=== PATIENT | female | born 1950 | race Caucasian/White ===

== ENCOUNTER 2020-03-11 15:07 | Inpatient (IN) | payer MEDICARE ==
[~2020-03-11] VITALS: Ht 180.3 cm; Wt 98.4 kg
--- NOTE | 2020-03-11 15:43 | NUR ---
ANDREI FROM [facility]. TO ER BED 5. NON VERBAL. AWAKE. VENT AND TRACH DEPENDENT. BED BOUND. BROUGHT IN FOR LOW O2 SAT DESPITE BEING ON VENT. PT WAS NOTED WITH 02 SAT 86%. PER EMS REPORT, PT WAS SUCTION AND GOT BETTER. PT VENT SETTING AC10, VT450, 50%, +5 PEEP. AND SATTING AT 100%. MD WAS AT THE BEDSIDE FOR EVAL. ORDERS RECEIVED NOTED AND CARRIED. MID LINE ALREADY IN PLACED DATA COLLECTOR FROM SNF. RECTAL TEMP NOTED 98.4. PT PRESENTED WITYH WOLFE CATH AND GT.
--- NOTE | 2020-03-11 15:49 | NUR ---
SHEN AT BEDSIDE FOR BLOOD DRAW
--- NOTE | 2020-03-11 15:53 | NUR ---
LAURIE SALVADOR (DAUGHTER) - [phone]
--- NOTE | 2020-03-11 15:54 | NUR ---
xray at bedside
[2020-03-11 16:06] LABS: BASOPHILS # (AUTO) 0.1 /CMM (0.0-0.2); BASOPHILS % (AUTO) 1.1 % (0.0-2.0); EOSINOPHILS % (AUTO) 4.9 % (0.0-6.0); HEMATOCRIT 32 % (33-45); HEMOGLOBIN 9.9 g/dL (11.5-14.8); LYMPHOCYTES # (AUTO) 0.9 /CMM (0.8-4.8); LYMPHOCYTES % (AUTO) 14.8 % (20.0-44.0); MEAN CORPUSCULAR HGB CONC 31 g/dl (31.0-36.0); MEAN CORPUSCULAR VOLUME 90 fL (82-100); MONOCYTES # (AUTO) 0.2 /CMM (0.1-1.30); MONOCYTES % (AUTO) 4.3 % (2.0-12.0); NEUTROPHILS # (AUTO) 4.3 /CMM (1.8-8.9); NEUTROPHILS % (AUTO) 74.9 % (43.0-81.0); PLATELET COUNT (AUTO) 242 /CMM (150-450); RED BLOOD CELL COUNT(AUTO) 3.59 MIL/uL (4.0-5.2); WHITE BLOOD COUNT (AUTO) 5.8 K/uL (4.3-11.0)
[2020-03-11] MEDS ORDERED: LEVA0.6320 IH (16:07)
[2020-03-11] MEDS ORDERED: ACET-907 GT (16:07)
[2020-03-11] MEDS ORDERED: LEVE500T9 GT (16:07)
[2020-03-11] MEDS ORDERED: MIDO5TAB4 GT (16:07)
[2020-03-11] MEDS ORDERED: QUET50TA GT (16:07)
[2020-03-11] MEDS ORDERED: ONDA-97 GT (16:07)
[2020-03-11] MEDS ORDERED: ATOR40TA GT (16:07)
[2020-03-11] MEDS ORDERED: ROPI0.5T4 GT (16:07)
[2020-03-11] MEDS ORDERED: LANS30CA56 GT (16:07)
[2020-03-11] MEDS ORDERED: ACET325T53 GT (16:07)
[2020-03-11] MEDS ORDERED: TRAM50TA2 GT (16:07)
[2020-03-11] MEDS ORDERED: GABA600T12 GT (16:07)
[2020-03-11] MEDS ORDERED: FENO145T21 GT (16:07)
[2020-03-11] MEDS ORDERED: ASPI-1169 GT (16:07)
[2020-03-11] MEDS ORDERED: INSU100V28 IJ (16:07)
[2020-03-11] MEDS ORDERED: METO5TAB7 GT (16:07)
[2020-03-11] MEDS ORDERED: HEPA100D33 SQ (16:07)
[2020-03-11] MEDS ORDERED: CYCL5TAB GT (16:07)
[2020-03-11] MEDS ORDERED: NUT.237L31 PO (16:07)
[2020-03-11 16:15] LABS: CALCIUM, SERUM 8.8 mg/dL (8.5-10.1); CARBON DIOXIDE 32 mmol/L (21-32); CHLORIDE 103 mmol/L (98-107); CREATININE 1.1 mg/dL (0.6-1.3); GLUCOSE 276 mg/dL (74-106); POTASSIUM 4.2 mmol/L (3.5-5.1); SODIUM SERUM 143 mmol/L (136-145); UREA NITROGEN, BLOOD 39 mg/dL (7-18)
[2020-03-11 16:30] LABS: ALANINE AMINOTRANSFERASE 14 U/L (12-78); ALBUMIN 2.3 g/dL (3.4-5.0); ALKALINE PHOSPHATASE 102 U/L (46-116); ASPARTATE AMINOTRANSFERASE 20 U/L (15-37); B-TYPE NATRIURETIC PEPTIDE 49382 PG/ML (0-125); BILIRUBIN,DIRECT 0.2 mg/dL (0.0-0.2); BILIRUBIN,TOTAL 0.4 mg/dL (0.2-1.0); TOTAL PROTEIN, SERUM 6.7 g/dL (6.4-8.2)
[2020-03-11 16:43] LABS: ABG BASE EXCESS 7.1 mmol/L; ABG OXYGEN SATURATION 96.3 % (92.0-98.5); ABG PCO2 46.2 mmHg (35.0-45.0); ABG PH 7.456 (7.350-7.450); AaDO2 213.5 mmHg; COHb 0.3 % (0.5-1.5); MetHb 0.5 % (0.0-1.5); O2Hb 95.5 % (94.0-97.0); PEEP,BG 5 cm H2O; SITE, ABG Right Radial; VT, ABG 450 mL
--- NOTE | 2020-03-11 17:40 | NUR ---
covid swab done and sent
--- NOTE | 2020-03-11 19:24 | NUR ---
DR. SUNSHINE SPEAKING WITH LIZZY TALLEY NP REGARDING ADMISSION
--- NOTE | 2020-03-11 19:30 | NUR ---
RT pt received on mechanical vent on current settings. trached, bivona portex 8. vent plugged in to red outlet. alarms on and audible. ambu bag at [facility]. pt resting comfortably. waiting to transport to floor
--- NOTE | 2020-03-11 19:50 | NUR ---
BED ASSIGNMENT BRENDA 253
[2020-03-11] MEDS ORDERED: Z GUARD REMEDY 2 OZ OINT TP PRN (20:00)
[2020-03-11] MEDS ORDERED: ONDANSETRON HCL/PF 4 MG/2 ML VIAL IVP PRN (20:00)
[2020-03-11] MEDS ORDERED: ACETAMINOPHEN 325 MG TABLET PO PRN (20:00)
[2020-03-11] MEDS ORDERED: HYDROCODONE/APAP 5/325MG TABLET PO PRN (20:00)
[2020-03-11] MEDS ORDERED: GLUCERNA 1.5 1,000 ML BOTTLE GT SCH (20:00)
[2020-03-11] MEDS ORDERED: MAGNESIUM HYDROXIDE 30 ML UDC GT PRN (20:00)
[2020-03-11] MEDS ORDERED: TRAMADOL HCL 50 MG TABLET GT PRN (20:00)
[2020-03-11] MEDS ORDERED: DEXTROSE 50%-WATER 50 ML DISP.SYRIN IV PRN (20:00)
[2020-03-11] MEDS ORDERED: MAG HYDROX/AL HYDROX/SIMETH 30 ML UDC GT PRN (20:00)
[2020-03-11] MEDS ORDERED: MORPHINE SULFATE INJ 2 MG/ML DISP.SYRIN IV PRN (20:00)
[2020-03-11] MEDS ORDERED: FUROSEMIDE 40 MG/4 ML VIAL IV ONE (20:00)
--- NOTE | 2020-03-11 20:40 | NUR ---
REPORT GIVEN TO EDYTA BENSON FOR JAMES.
[2020-03-11] MEDS ORDERED: FUROSEMIDE 40 MG/4 ML VIAL ONE (20:44)
[2020-03-11 21:35] VITALS: BP 126/77
--- NOTE | 2020-03-11 21:35 | NUR ---
PT TRANSPORTED TO UNIT [facility] WITH EMT, RT AND RN AT BEDSIDE WITH ACLS PROTOCOL. NAD NOTED DURING TRANSPORT.
--- NOTE | 2020-03-11 21:45 | NUR ---
RT pt transferred to floor with no complications. vent plugged in to red outlet. ambu bag at [facility]. alarms on and audible. will continue to monitor.
[2020-03-11] MEDS: QUETIAPINE FUMARATE 25 MG TABLET GT SCH (21:56)
[2020-03-11] MEDS: LEVETIRACETAM SOL (5 ML) 100 MG/ML UDC GT SCH (21:56)
[2020-03-11] MEDS: CYCLOBENZAPRINE 10 MG TABLET GT SCH (21:57)
[2020-03-11] MEDS: ATORVASTATIN 40 MG TABLET GT SCH (21:57)
[2020-03-11] MEDS: MIDODRINE HCL (5MG) 5 MG TABLET GT SCH (21:58)
[2020-03-11 22:00] VITALS: BP 126/72
[2020-03-11] MEDS: ENOXAPARIN SODIUM 40 MG/0.4 ML DISP.SYRIN SQ SCH (22:02)
[2020-03-11] MEDS: BLOOD SUGAR DIAGNOSTIC 1 EACH STRIP VI SCH (22:11)
[2020-03-11] MEDS: *INSULIN REGULAR(HUMULIN R)HUM 100 UNIT/ML VIAL SQ PRN (22:16)
[2020-03-11 22:30] VITALS: BP 107/61
[2020-03-11] MEDS ORDERED: ropiniROLE 0.5 MG TABLET ONE ×2 (22:35→22:41)
[2020-03-11] MEDS: ropiniROLE 0.5 MG TABLET GT SCH (22:40)
[2020-03-11 23:00] VITALS: BP 96/51
[2020-03-11 23:30] VITALS: BP 103/56
[2020-03-12] VITALS (32 sets, daily range): BP systolic 90–114; BP diastolic 44–71
--- NOTE | 2020-03-12 03:34 | NUR ---
SPOKE TO LAURIE, PATIENTS DAUGHTER JUST WANTED AN UPDATE TO HOW HER MOTHER IS DOING. ALL CONCERNS ANS QUESTIONS ANSWERED.
[2020-03-12] MEDS: ropiniROLE 0.5 MG TABLET GT SCH ×3 (04:10→20:27)
[2020-03-12] MEDS: MIDODRINE HCL (5MG) 5 MG TABLET GT SCH ×3 (04:11→20:27)
[2020-03-12 04:45] LABS: BASOPHILS % (AUTO) 0.4 % (0.0-2.0); HEMATOCRIT 27 % (33-45); HEMOGLOBIN 8.6 g/dL (11.5-14.8); LYMPHOCYTES # (AUTO) 2.3 /CMM (0.8-4.8); LYMPHOCYTES % (AUTO) 31.6 % (20.0-44.0); MEAN CORPUSCULAR HGB CONC 32 g/dl (31.0-36.0); MEAN CORPUSCULAR VOLUME 88 fL (82-100); MONOCYTES # (AUTO) 0.4 /CMM (0.1-1.30); MONOCYTES % (AUTO) 4.8 % (2.0-12.0); NEUTROPHILS # (AUTO) 3.7 /CMM (1.8-8.9); NEUTROPHILS % (AUTO) 50.2 % (43.0-81.0); PLATELET COUNT (AUTO) 215 /CMM (150-450); WHITE BLOOD COUNT (AUTO) 7.3 K/uL (4.3-11.0)
[2020-03-12 05:07] LABS: BILIRUBIN,TOTAL 0.4 mg/dL (0.2-1.0); CALCIUM, SERUM 8.7 mg/dL (8.5-10.1); MAGNESIUM 1.6 mg/dL (1.8-2.4); PHOSPHORUS 3.5 mg/dL (2.5-4.9); POTASSIUM 3.6 mmol/L (3.5-5.1); TOTAL PROTEIN, SERUM 5.7 g/dL (6.4-8.2)
[2020-03-12 05:54] LABS: THYROID STIMULATING HORMONE 7.128 uIU/mL (0.358-3.74)
[2020-03-12] MEDS ORDERED: GLUCERNA 1.5 1,000 ML BOTTLE GT SCH (06:41)
--- NOTE | 2020-03-12 07:11 | NUR ---
REPORT GIVEN TO MORNING SHIFT NURSE. PATIENT SHOWS NO SIGN OF ANY DISTRESS. ALL NEEDS MET.
[2020-03-12] MEDS: BLOOD SUGAR DIAGNOSTIC 1 EACH STRIP VI SCH ×4 (07:34→21:46)
[2020-03-12] MEDS: INSULIN REGULAR, HUMAN 100 UNIT/ML 3 ML VIAL SQ PRN ×3 (07:35→17:23)
[2020-03-12] MEDS: METOLAZONE 2.5 MG TABLET GT SCH (08:10)
[2020-03-12] MEDS: GABAPENTIN 300 MG CAPSULE GT SCH ×2 (08:10→16:53)
[2020-03-12] MEDS: ASPIRIN 81 MG TAB.CHEW GT SCH (08:10)
[2020-03-12] MEDS: PANTOPRAZOLE 40 MG/PACK PACK GT SCH (08:10)
[2020-03-12] MEDS: LEVETIRACETAM SOL (5 ML) 100 MG/ML UDC GT SCH ×2 (08:10→20:27)
[2020-03-12] MEDS: FENOFIBRATE NANOCRYS (145 MG) 145 MG TABLET GT SCH (08:10)
[2020-03-12] MEDS: CYCLOBENZAPRINE 10 MG TABLET GT SCH ×2 (08:10→20:27)
[2020-03-12] MEDS ORDERED: PREVACID (NF) 30 MG TAB GT SCH (09:00)
[2020-03-12] MEDS: GLUCERNA 1.2 1,000 ML BOTTLE NG PRN ×2 (09:03→21:54)
[2020-03-12] MEDS: Magnesium 1GM/D5W 100ML PREMIX 100 ML IV SCH ×2 (09:54→10:56)
--- NOTE | 2020-03-12 11:18 | NUR ---
RN NOTE 0715: Received patient awake. Able to follow commands. With trache to vent, tolerated settings well, no respiratory distress noted. With GT intact. Mendez cath intactm, noted with good UOP, clear jaron colored urine drained to BSD. On isolation prec for R/O Covid, maintained and observed. 0900: S/E by Dr. Mixon, made aware that there is order of 250 mL water flush q6, per MD, continue for now. With order of labs in am and Mg replacement. 1030: S/E by Dr. Quezada, with orders of labs. 1110: No any significant changes noted at this time. Kept clean, warm and dry. Needs attended.
[2020-03-12] MEDS: FUROSEMIDE 40 MG/4 ML VIAL IV SCH ×3 (12:10→22:53)
[2020-03-12 16:06] LABS: BILIRUBIN,URINE NEGATIVE (NEGATIVE); BLOOD, URINE TRACE-INTA Ery/uL (NEGATIVE); COLOR,URINE YELLOW (YELLOW); LEUKOCYTE ESTERASE ,URINE SMALL (NEGATIVE); NITRITE, URINE NEGATIVE (NEGATIVE); PH,URINE 7.5 (5.0-8.0); PROTEIN,URINE 30 mg/dl (NEGATIVE); UGLUCOSE NEGATIVE (NEGATIVE); UROBILINOGEN,URINE 0.2 EU/dL (0.2)
[2020-03-12 17:52] LABS: WBC,URINE 21-50 /HPF (0-3)
[2020-03-12 17:53] LABS: BACTERIA,URINE 1+ /HPF (None Seen); SQUAMOUS EPITHELIAL CELL,UR 0-2 /HPF (None Seen); YEAST,URINE Rare /HPF (None Seen)
--- NOTE | 2020-03-12 19:20 | NUR ---
RN NOTES RECEIVED PATIENT WITH TRACH SHILEY 8 CONNECTED TO AC 10 TV 450 FIO2 40% PEEP 5. AOX 1 FOLLOWS COMMAND SR ON TELE MONITOR. NO SOB OR ACUTE RESPIRATORY DISTRESS. IV SITE ON LORA MIDLINE NO INFILTRATION. FLUSHED WELL. PATIENT HAD GTF GLUCERNA 1.2 @ 50 ML/HR INTACT AND PATENT. FLUSHED WELL PATENCY CHECKED. WOLFE CATH DRAINED WITH YELLOW COLOR URINE. PATIENT BNP STILL HIGH, COVID PCR STILL PENDING AWAITING FOR THE RESULT DROPLET PRECAUTION STRICTLY OBSERVED DUE TO PUI. CONTINUE WITH POC.
--- NOTE | 2020-03-12 20:45 | NUR ---
TRAVELING OPERATOR OPENING NOTES RECEIVED PATIENT FROM ICU , SAFELY TRANSFERRED TO ROOM 201, WITH RT, RN MARCK PRESENT, SUCTION SETUP IN PLACE, MECHANICAL VENT IN PLACE WITH ORDERED SETTINGS, ALARMS AUDIBLE, SUCTION SET UP IN PLACE, AMBU BAG IN PLACE, AWAKE ALERT AND ORIENTED X1, VENT DEPENDENT ON COMPENSATION EXPERT SR90. GTUBE IN PLACE, PATENT, NO RESIDUALS PRESENT, WOLFE CATHETER IN PLACE, WITH CORRECT ALIGNMENT, DRAINING YELLOW URINE, LEFT UPPER ARM MIDLINE INTACT AND PATENT, DRESSING IS C/D/I.KCI MATTRESS IN PLACE. ORIENTED TO STAFF AND CALL LIGHT AND KEPT WITHIN REACH, HEAD OF BED ELEVATED FOR ASPIRATION PRECAUTIONS, WAS ENDORSE LOVENOX WILL GIVE SCHEDULED. NO BELONGINGS PRESENT, WILL CONTINUE TO MONITOR REMAINS COMFORTABLE AND CARRY OUT MD ORDERS.
--- NOTE | 2020-03-12 21:00 | NUR ---
RN NOTES TRANSFERRED PATIENT @ 2040 PM WITH RT AND RN. PLACE PATIETN ON TRANSFER MONITOR, PATIENT REMAINED STABLE. REPORT GIVEN TO MINERVA KAM RN AND ENDORSE LOVENOX DUE TO UNABLE TO ACCEPT CO SIGNITURE ON THE FLOOR.
[2020-03-12] MEDS: ATORVASTATIN 40 MG TABLET GT SCH (21:40)
[2020-03-12] MEDS: QUETIAPINE FUMARATE 25 MG TABLET GT SCH (21:41)
[2020-03-12] MEDS: ENOXAPARIN SODIUM 40 MG/0.4 ML DISP.SYRIN SQ SCH (21:43)
[2020-03-12] MEDS: *INSULIN REGULAR(HUMULIN R)HUM 100 UNIT/ML VIAL SQ PRN (21:47)
[2020-03-13] VITALS (10 sets, daily range): BP systolic 81–131; BP diastolic 44–89
--- NOTE | 2020-03-13 01:00 | NUR ---
SPECIAL EDUCATION CLASSROOM AIDE NOTES NOTED BP AT 88/51, 94. MADE DR. BALL AWARE OF DX AND SCHEDULED LASIX GIVEN ORDERED, NEW ORDER FOR MIDRODRINE 5MG ONE TIME NOW AND NS 100 SLOW BOLUS. ORDERS READ BACK AND VERIFIED AND CARRIED OUT. WILL CONTINUE TO MONITOR.
[2020-03-13] MEDS ORDERED: MIDODRINE HCL (5MG) 5 MG TABLET GT ONE (01:30)
[2020-03-13] MEDS ORDERED: IV NS 0.9% 100 ML BAG IV ONE (01:30)
--- NOTE | 2020-03-13 02:35 | NUR ---
churn driller helper notes midodrine effective b/p noted increased to 102/53,75. patient is stable.
[2020-03-13] MEDS: ropiniROLE 0.5 MG TABLET GT SCH ×3 (05:43→21:46)
[2020-03-13] MEDS: MIDODRINE HCL (5MG) 5 MG TABLET GT SCH ×3 (05:44→21:41)
[2020-03-13] MEDS: BLOOD SUGAR DIAGNOSTIC 1 EACH STRIP VI SCH ×4 (05:58→21:57)
[2020-03-13] MEDS: INSULIN REGULAR, HUMAN 100 UNIT/ML 3 ML VIAL SQ PRN ×3 (05:59→17:14)
--- NOTE | 2020-03-13 06:42 | NUR ---
NEON PUMPER CLOSING NOTES PATIENT COMFORTABLE PER NOVELTY CHAIN MAKER WAS SR NOW SHOWING WITH EPISODES OF CONTROLLED AND UNCONTROLLED A.FIB 109, MADE AWARE WITH RECOMMENDATION TO FOLLOW UP WITH CARDIO CONSULT IN AM . SUCTION SETUP IN PLACE, MECHANICAL VENT IN PLACE WITH ORDERED SETTINGS, ALARMS AUDIBLE, , AMBU BAG IN PLACE, AWAKE ALERT AND ORIENTED X1, VENT DEPENDENT . GTUBE IN PLACE, PATENT, NO RESIDUALS PRESENT, WOLFE CATHETER IN PLACE TOTAL OUTPUT 1100, WITH CORRECT ALIGNMENT, DRAINING YELLOW URINE, LEFT UPPER ARM MIDLINE INTACT AND PATENT, DRESSING IS C/D/I.KCI MATTRESS IN PLACE. ORIENTED TO STAFF AND CALL LIGHT AND KEPT WITHIN REACH, HEAD OF BED ELEVATED FOR ASPIRATION PRECAUTIONS, NO BELONGINGS PRESENT, WILL CONTINUE TO MONITOR AND ENDORSE TO NEXT SHIFT, MIDRODINE WAS EFFECTIVE.
--- NOTE | 2020-03-13 07:00 | NUR ---
PARK ATTENDANT OPENING NOTES RECEIVED PT RESTING IN BED AT THIS TIME. AOX1. NO SOB NOTED, NO S/S OF ANY ACUTE DISTRESS NOTED. NO C/O PAIN AT THIS TIME. RESPIRATIONS ARE EVEN AND UNLABORED WITH EQUAL RISE AND FALL IN CHEST. PT ON MECHANICAL VENT. VENT SETTINGS READING AC 10, TV 450, FIO2 40%, PEEP 5. LORA MIDLINE, INTACT, PATENT AND FLUSHING WELL. PT ON EXTERNAL TEL TELEPHONE ORDER CLERK ROOM SERVICE READING ST 109. WOLFE CATHETER IN PLACE DRAINING TO GRAVITY CLEAR YELLOW URINE OUTPUT. SAFETY PRECAUTION IN PLACE AND MAINTAINED AT ALL TIMES. BED IN LOWEST LOCKED POSITION, HOB ELEVATED, SIDE RAILS UP X 2, CALL LIGHT WITHIN REACH. WILL CONTINUE TO MONITOR
[2020-03-13 07:50] LABS: BASOPHILS # (AUTO) 0.1 /CMM (0.0-0.2); BASOPHILS % (AUTO) 0.8 % (0.0-2.0); EOSINOPHILS % (AUTO) 13.7 % (0.0-6.0); HEMATOCRIT 30 % (33-45); HEMOGLOBIN 9.5 g/dL (11.5-14.8); LYMPHOCYTES # (AUTO) 3.8 /CMM (0.8-4.8); LYMPHOCYTES % (AUTO) 38.4 % (20.0-44.0); MEAN CORPUSCULAR HGB CONC 31 g/dl (31.0-36.0); MEAN CORPUSCULAR VOLUME 89 fL (82-100); MONOCYTES # (AUTO) 0.7 /CMM (0.1-1.30); MONOCYTES % (AUTO) 6.5 % (2.0-12.0); NEUTROPHILS # (AUTO) 4.1 /CMM (1.8-8.9); NEUTROPHILS % (AUTO) 40.6 % (43.0-81.0); PLATELET COUNT (AUTO) 218 /CMM (150-450)
--- NOTE | 2020-03-13 07:50 | NUR ---
RT PATIENT REC'D TRACHED ON [facility] VENT WITH ORDERED SETTINGS SERGIO WELL. AMBU BAG AT [facility]. PATIENT APPEARS COMFORTABLE AND IN NO DISTRESS. Addendum: 03/13/20 at 0933 by ALEXANDRA MORFIN RT Amended: Links added.
[2020-03-13 08:04] LABS: CALCIUM, SERUM 8.7 mg/dL (8.5-10.1); MAGNESIUM 1.9 mg/dL (1.8-2.4); POTASSIUM 3.8 mmol/L (3.5-5.1)
[2020-03-13] MEDS: GABAPENTIN 300 MG CAPSULE GT SCH ×2 (08:17→17:06)
[2020-03-13] MEDS: ASPIRIN 81 MG TAB.CHEW GT SCH (08:19)
[2020-03-13] MEDS: FENOFIBRATE NANOCRYS (145 MG) 145 MG TABLET GT SCH (08:19)
[2020-03-13] MEDS: CYCLOBENZAPRINE 10 MG TABLET GT SCH ×2 (08:19→21:42)
[2020-03-13] MEDS: PANTOPRAZOLE 40 MG/PACK PACK GT SCH (08:19)
[2020-03-13] MEDS: LEVETIRACETAM SOL (5 ML) 100 MG/ML UDC GT SCH ×2 (08:19→21:42)
[2020-03-13] MEDS: METOLAZONE 2.5 MG TABLET GT SCH (08:58)
--- NOTE | 2020-03-13 09:23 | NUR ---
WOUND CARE CONSULT: REVIEWED CHART, NURSING DOCUMENTATION AND PHOTOS WHICH INDICATE SACRAL NECROTIC WOUND, SCAB AROUND G TUBE SITE, WOUNDS TO THIGHS AND PERINEAL RASH, PRESENT ON ADMISSION. RECOMMEND SURGICAL CONSULT DR MANSFIELD NOTIFIED OF CONSULT REQUEST. RECOMMENDATIONS MADE FOR SKIN PROTECTION AND DISCUSSED WITH NURSING STAFF. PT IS ON A FIRST STEP [facility]. IN AGREEMENT WITH PLAN OF CARE.
--- NOTE | 2020-03-13 13:36 | NUR ---
PT TRANSFERRED TO BY BED WITH ACLS PROTOCOLS, RN, RT AND RELAY MAN TO [facility] ROOM 314 AT THIS TIME. PT IN STABLE CONDITION. BEDSIDE REPORT GIVEN EDYTA GAN.
--- NOTE | 2020-03-13 13:40 | NUR ---
BABY NURSE NOTES RECEIVED BEDSIDE REPORT FROM EDYTA ROMERO. ON MECHANICAL VERBTILATION ORDERED WITHOUT S/S OF COMPLICATIONS OBSERVED. ORIENTED PATIENT TO ROOM, UNIT AND CALL LIGHT. RESTING COMFORTABLY IN BED AT THIS TIME. FREQUENT VISUAL CHECK DONE.
--- NOTE | 2020-03-13 17:00 | NUR ---
SLASHER RUNNER NOTES RECEIVED A CALL FROM NGOZI POWER GENERATION TECHNICIAN AT [facility] AND REQUESTED AN UPDATE ON PATIENT, TRANSFERRED CALL TO .
--- NOTE | 2020-03-13 19:30 | NUR ---
TELE/RN OPENING NOTES RECIEVED PATIENT AWAKE IN BED. PATIENT IS ALERT AND ORIENTED X 1. PATIENT IS ABLE TO MOUTH WORDS. PATIENT REMAINS ON AC 10 TV 450 FIO2 OF 40% PEEP 5 WITH PORTEX # 8 INTACT, MECH VENT. TELE READING ST 106. WOLFE CATH IN PLACE DRAINING YELLOW URINE. PATIENT HAD GTUBE IN PLACE TOLERATING FEEDING WELL GLUCERNA 1.2 AT 50 ML/HR, NO RESIDUAL. IV ACCESS LEFT UPPER ARM MIDLINE. PATIENT PLACED IN COMFORTABLE POSITION, NO SIGNS OF DISTRESS. SAFETY MEASURES ARE IN PLACE, BED IS LOCKED AND PLACED IN THE LOW POSITION, SIDE RAILS UP X 3. CALL LIGHT IS WITHIN REACH. WILL CONTINUE TO MONITOR.
--- NOTE | 2020-03-13 19:43 | NUR ---
BINDER SORTER NOTES PATIENT RESTING COMFORTABLY IN BED. ALERT AND ORIENTED X1. ABLE TO FOLLOW SIMPLE COMMANDS. ABLE TO MOUTH WORDS. DENIES ANY C/O PAIN NOR DISCOMFORT AT THIS TIME. REMAIN ON AC 10 TV 450 FIO2 OF 40% PEEP 5 WITH PORTEX # 8 INTACT. SUCTIONED PATIENT AND OBTAINED YELLOW GREEN THIN SECRETIONS. WOLFE CATHETER INTACT AND PATENT DRAINING YELLOW COLORED URINE VIA BEDSIDE. GT INTACT AND PATENT SERGIO FEEDING WELL OF GLUCERNA 1.2 AT 50 ML/HR. NO RESIDUAL OBSERVED. FREQUENT VISUAL CHECK DONE. BED IN LOWEST POSITION ,LOCKED. IN NO APPARENT DISTRESS.
--- NOTE | 2020-03-13 20:21 | NUR ---
RT NOTE PT RECEIVED TRACHED WITH BIVONA PORTEX 8 ON MECHANICAL VENTILATION. CUFF CHECKED. PT AWAKE/ALERT. AMBU BAG @ HOB. SX DONE, TRACH SECURED AND PATENT. ALARMS ON AND AUDIBLE. NO DISTRESS NOTED. WILL CONTINUE TO MONITOR T/O SHIFT. Addendum: 03/13/20 at 2023 by IVY RUSSELL RT Amended: Links added.
[2020-03-13] MEDS: ATORVASTATIN 40 MG TABLET GT SCH (21:42)
[2020-03-13] MEDS: QUETIAPINE FUMARATE 25 MG TABLET GT SCH (21:42)
[2020-03-13] MEDS: ENOXAPARIN SODIUM 40 MG/0.4 ML DISP.SYRIN SQ SCH (21:46)
[2020-03-14] VITALS: BP 128/67
[2020-03-14] MEDS: GLUCERNA 1.2 1,000 ML BOTTLE NG PRN ×2 (03:38→22:02)
[2020-03-14 04:00] VITALS: BP 124/84
[2020-03-14] MEDS: ropiniROLE 0.5 MG TABLET GT SCH ×3 (05:07→21:52)
[2020-03-14] MEDS: MIDODRINE HCL (5MG) 5 MG TABLET GT SCH ×3 (05:08→21:52)
[2020-03-14 06:06] LABS: BASOPHILS % (AUTO) 0.5 % (0.0-2.0); EOSINOPHILS % (AUTO) 12.4 % (0.0-6.0); HEMATOCRIT 31 % (33-45); LYMPHOCYTES # (AUTO) 2.6 /CMM (0.8-4.8); LYMPHOCYTES % (AUTO) 32.6 % (20.0-44.0); MEAN CORPUSCULAR HGB CONC 32 g/dl (31.0-36.0); MEAN CORPUSCULAR VOLUME 88 fL (82-100); MONOCYTES # (AUTO) 0.5 /CMM (0.1-1.30); MONOCYTES % (AUTO) 5.9 % (2.0-12.0); NEUTROPHILS # (AUTO) 3.9 /CMM (1.8-8.9); NEUTROPHILS % (AUTO) 48.6 % (43.0-81.0); PLATELET COUNT (AUTO) 233 /CMM (150-450); RED BLOOD CELL COUNT(AUTO) 3.54 MIL/uL (4.0-5.2)
[2020-03-14 06:08] LABS: CALCIUM, SERUM 8.7 mg/dL (8.5-10.1); POTASSIUM 3.7 mmol/L (3.5-5.1)
[2020-03-14] MEDS: BLOOD SUGAR DIAGNOSTIC 1 EACH STRIP VI SCH ×4 (06:35→22:21)
[2020-03-14] MEDS: INSULIN REGULAR, HUMAN 100 UNIT/ML 3 ML VIAL SQ PRN ×4 (06:36→21:55)
--- NOTE | 2020-03-14 06:50 | NUR ---
TELE/RN CLOSING NOTES PATIENT RESTING COMFORTABLY IN BED. ALERT AND ORIENTED X1. ABLE TO FOLLOW SIMPLE COMMANDS. ABLE TO MOUTH WORDS. DENIES ANY C/O PAIN NOR DISCOMFORT AT THIS TIME. REMAIN ON AC 10 TV 450 FIO2 OF 40% PEEP 5 WITH PORTEX # 8 INTACT. SUCTIONED PATIENT NEEDED DURING SHIFT. WOLFE CATHETER INTACT AND PATENT DRAINING YELLOW COLORED URINE OUTPUT 650CC. GT INTACT AND PATENT TOLERATING FEEDING WELL OF GLUCERNA 1.2 AT 50 ML/HR. NO RESIDUAL. ALL NEEDS MET DURING SHIFT. BED IN LOWEST POSITION ,LOCKED. IN NO APPARENT DISTRESS. WILL ENDORSE CARE TO DAY SHIFT.
[2020-03-14] MEDS: CYCLOBENZAPRINE 10 MG TABLET GT SCH ×2 (08:35→21:52)
[2020-03-14] MEDS: PANTOPRAZOLE 40 MG/PACK PACK GT SCH (08:35)
[2020-03-14] MEDS: GABAPENTIN 300 MG CAPSULE GT SCH ×2 (08:35→16:42)
[2020-03-14] MEDS: ASPIRIN 81 MG TAB.CHEW GT SCH (08:35)
[2020-03-14] MEDS: FENOFIBRATE NANOCRYS (145 MG) 145 MG TABLET GT SCH (08:35)
[2020-03-14] MEDS: METOLAZONE 2.5 MG TABLET GT SCH (08:35)
[2020-03-14] MEDS: LEVETIRACETAM SOL (5 ML) 100 MG/ML UDC GT SCH ×2 (08:35→21:51)
[2020-03-14 08:49] VITALS: BP 137/78
[2020-03-14] MEDS: METOPROLOL TARTRATE 25 MG TABLET PO SCH ×2 (09:18→21:51)
[2020-03-14] MEDS: FUROSEMIDE 20 MG/2 ML VIAL IV SCH ×2 (09:18→16:43)
[2020-03-14 14:08] VITALS: BP 118/58
--- NOTE | 2020-03-14 18:37 | NUR ---
JEWELRY CASTING MODEL MAKER APPRENTICE NOTES PATIENT IN BED RESTING NO SOB OR ACUTE DISTRESS NOTED. PATIENT VENT DEPENDENT. PATIENT ALERT, ORIENTED X2. ALL DUE MEDICATIONS ADMINISTERED. PATIENTS WOLFE INTACT PATENT. IV ACCESS INTACT PATIENT. ALL NEEDS MET. NO ACUTE CHANGES NOTED DURING AM SHIFT. WILL ENDORSE CARE TO PM SHIFT.
--- NOTE | 2020-03-14 19:50 | NUR ---
MS/TELE/RN RECEIVED PATIENT IN BED AWAKE, ALERT, NON VERBAL, APPEAR COMFORTABLE, NO SIGNS OF DISTRESS NOTED, HOB ELEVATED, G TUBE FEEDING INFUSING, MECHANICAL VENTILATOR WORKING WELL, CALL LIGHT IN REACH, NEEDS ATTENDED, WILL MONITOR.
[2020-03-14 20:00] VITALS: BP 130/59
[2020-03-14] MEDS: ATORVASTATIN 40 MG TABLET GT SCH (21:51)
[2020-03-14] MEDS: QUETIAPINE FUMARATE 25 MG TABLET GT SCH (21:52)
[2020-03-14] MEDS: ENOXAPARIN SODIUM 40 MG/0.4 ML DISP.SYRIN SQ SCH (21:54)
[2020-03-14] MEDS: *INSULIN REGULAR(HUMULIN R)HUM 100 UNIT/ML VIAL SQ PRN (22:22)
[2020-03-15] VITALS: BP 99/61
[2020-03-15 04:00] VITALS: BP 129/83
[2020-03-15] MEDS: ropiniROLE 0.5 MG TABLET GT SCH ×2 (05:31→12:29)
[2020-03-15] MEDS: MIDODRINE HCL (5MG) 5 MG TABLET GT SCH ×2 (05:31→12:28)
[2020-03-15] MEDS: BLOOD SUGAR DIAGNOSTIC 1 EACH STRIP VI SCH ×2 (05:39→12:06)
[2020-03-15] MEDS: INSULIN REGULAR, HUMAN 100 UNIT/ML 3 ML VIAL SQ PRN ×2 (05:46→12:08)
--- NOTE | 2020-03-15 06:04 | NUR ---
MS/TELE/RN MORNING CARE WAS DONE AT 0500, TOTAL LINEN CHANGE RENDERED, SACRAL WOUND DRESSING WAS DIRTY, DRESSING CHANGE DONE PER ORDER, F/C CARE DONE, REPOSITIONED TO COMFORT, HOB ELEVATED, G TUBE FEEDING INFUSING, GOOD SLEEP NOTED DURING SHIFT, ALL NEEDS ATTENDED AT THIS TIME, WILL CONTINUE TO MONITOR.
--- NOTE | 2020-03-15 07:38 | NUR ---
TELE/RN OPENING NOTES RECEIVED PATIENT ON BED. NO SIGN AND SYMPTOM OF PAIN NOTED AT THIS TIME. PATIENT IN NO APPARENT RESPIRATORY DISTRESS NOTED. PATIENT IS ON VENT AT THE PRESCRIBED SETTING. WILL CONTINUE TO MONITOR.
[2020-03-15 08:00] VITALS: BP 129/59
--- NOTE | 2020-03-15 08:05 | NUR ---
TELE/RN NOTES TELE MONITOR READING SINUS TACHY WITH PVC 107 BPM. WILL CONTINUE TO MONITOR.
[2020-03-15] MEDS: CYCLOBENZAPRINE 10 MG TABLET GT SCH (09:01)
[2020-03-15] MEDS: PANTOPRAZOLE 40 MG/PACK PACK GT SCH (09:01)
[2020-03-15] MEDS: GABAPENTIN 300 MG CAPSULE GT SCH (09:01)
[2020-03-15] MEDS: FUROSEMIDE 20 MG/2 ML VIAL IV SCH (09:01)
[2020-03-15] MEDS: METOLAZONE 2.5 MG TABLET GT SCH (09:02)
[2020-03-15] MEDS: ASPIRIN 81 MG TAB.CHEW GT SCH (09:02)
[2020-03-15] MEDS: LEVETIRACETAM SOL (5 ML) 100 MG/ML UDC GT SCH (09:02)
[2020-03-15] MEDS: FENOFIBRATE NANOCRYS (145 MG) 145 MG TABLET GT SCH (09:03)
[2020-03-15] MEDS: METOPROLOL TARTRATE 25 MG TABLET PO SCH (09:03)
--- NOTE | 2020-03-15 09:11 | NUR ---
TELE/RN NOTES PATIENT WITH SIGN AND SYMPTOM OF PAIN NOTED. FACIAL GRIMACE AND RESTLESS. NORCO 5/325MG 1 TAB WAS GIVEN.WILL CONTINUE TO MONITOR.
[2020-03-15] MEDS ORDERED: FURO10SO2 GT (11:04)
[2020-03-15 15:28] VITALS: BP 111/69
--- NOTE | 2020-03-15 16:25 | NUR ---
RN NOTES PATIENT IS ALERT AND ORIENTED X1. PATIENT IS NON-VERBAL. IN ROOM AIR AND SATURATION IS AT 98%. RESPIRATION REGULAR AND UNLABORED. PATIENT DENIES PAIN AT THIS TIME. PATIENT IN NO APPARENT RESPIRATORY DISTRESS NOTED. PATIENT IN VENTILATOR AT THE PRESCRIBED SETTING. TRACHEOSTOMY WAS CLEAN AND DRY. G TUBE FEEDING WAS IN PLACE, PATENT AND INTACT. SEEN AND EXAMINED BY MD WITH ORDERS MADE AND CARRIED OUT. ALL DUE MEDICATION WAS GIVEN. GIVE REPORT TO MARIAN LOREDO LVN. PATIENT LEFT THE HOSPITAL IN MEDICALLY STABLE CONDITION AT 1625. SENIOR LEAD SOFTWARE ENGINEER BY 1 RN AND 2 EMT VIA AMBULANCE.
== END 2020-03-15 16:30 | DRG 291 ==
LOC: ER 16:36 → ICU 19:52 → TELE2 03-12 20:39 → TELE 03-13 15:12
PROVIDERS: ADMIT Nurse Practitioner Acute Care; ATTEND Internal Medicine
PROC: 5A1945Z Respiratory Ventilation, 24-96 Consecutive Hours (ICD-10-PCS; principal; 2020-03-11)
DX: I13.0 Hypertensive heart and chronic kidney disease with heart failure and stage 1 through stage 4 chronic kidney disease, or unspecified chronic kidney disease (principal); J96.21 Acute and chronic respiratory failure with hypoxia; I50.33 Acute on chronic diastolic (congestive) heart failure; G93.41 Metabolic encephalopathy; E43 Unspecified severe protein-calorie malnutrition; N17.0 Acute kidney failure with tubular necrosis; R53.2 Functional quadriplegia; G93.1 Anoxic brain damage, not elsewhere classified; Z99.11 Dependence on respirator [ventilator] status; D68.59 Other primary thrombophilia; J90 Pleural effusion, not elsewhere classified; I25.2 Old myocardial infarction; J44.9 Chronic obstructive pulmonary disease, unspecified; Z79.82 Long term (current) use of aspirin; Z79.51 Long term (current) use of inhaled steroids; Z79.899 Other long term (current) drug therapy; Z79.4 Long term (current) use of insulin; E11.65 Type 2 diabetes mellitus with hyperglycemia; D63.8 Anemia in other chronic diseases classified elsewhere; Z86.74 Personal history of sudden cardiac arrest; R13.10 Dysphagia, unspecified; Z93.0 Tracheostomy status; Z93.1 Gastrostomy status; Z74.09 Other reduced mobility; E83.42 Hypomagnesemia; L98.9 Disorder of the skin and subcutaneous tissue, unspecified; L89.156 Pressure-induced deep tissue damage of sacral region; S70.322A Blister (nonthermal), left thigh, initial encounter; S70.321A Blister (nonthermal), right thigh, initial encounter; X58.XXXA Exposure to other specified factors, initial encounter; Y92.9 Unspecified place or not applicable; E11.22 Type 2 diabetes mellitus with diabetic chronic kidney disease; N18.9 Chronic kidney disease, unspecified
CPT/HCPCS: 31720; 36415; 36600; 71045-TC; 71250-TC; 80048-TC; 80053-TC; 80061-TC; 80076-TC; 81000-TC; 82803-TC; 82962-TC; 83540-TC; 83605-TC; 83735-TC; 83880; 84100-TC; 84443-TC; 84484-TC; 85025-TC; 85730-TC; 86140-TC; 87040-TC; 87081-TC; 87086-TC; 93307-TC; 94003-TC; 94799-TC; 99082-TC; A4217; A6253; A6403; A7526; G0378; J1650; J1815; J1940; J1953; J3475; J7030; U0003

== ENCOUNTER 2020-03-21 09:16 | Inpatient (IN) | payer MEDICARE ==
[2020-03-21] VITALS (10 sets, daily range): BP systolic 89–137; BP diastolic 37–110
[~2020-03-21] VITALS: Ht 165.1 cm; Wt 73.3 kg
[~2020-03-21 09:16] MED LIST: ACET-907 GT; ACET325T53 GT; ASPI-1169 GT; ATOR40TA GT; CYCL5TAB GT; FENO145T21 GT; FURO10SO2 GT; GABA600T12 GT; HEPA100D33 SQ; INSU100V28 SQ; LANS30CA56 GT; LEVA0.6320 IH; LEVE500T9 GT; METO5TAB7 GT; MIDO5TAB4 GT; NUT.237L31 GT; ONDA-97 GT; QUET50TA GT; ROPI0.5T4 GT; TRAM50TA2 GT
--- NOTE | 2020-03-21 09:30 | NUR ---
PT [id number], FROM SNF, C/O SOB, 93% ON 15LPM PER EMS. RT BY BEDSIDE. IV ACCESS STARTED ON R AND L HAND G18. BLOOD DRAW DONE. SENT TO LAB. SEEN BY DR. CAMPBELL
--- NOTE | 2020-03-21 09:35 | NUR ---
URINE COLLECTED. RAPID INFLUENZA COLLECTED. SENT TO LAB.
[2020-03-21] MEDS ORDERED: FURO-144 GT (09:47)
[2020-03-21] MEDS ORDERED: HEPA50008 SQ (09:47)
[2020-03-21] MEDS ORDERED: LEVA0.6320 IH (09:47)
[2020-03-21] MEDS ORDERED: ZINC1CAP2 GT (09:47)
[2020-03-21] MEDS ORDERED: ASCO-352 GT (09:47)
[2020-03-21] MEDS ORDERED: CHLO473M5 MM (09:47)
[2020-03-21] MEDS ORDERED: FERR300L GT (09:47)
[2020-03-21] MEDS ORDERED: COLL30OI TP (09:47)
[2020-03-21] MEDS ORDERED: MULT-447 GT (09:47)
[2020-03-21 09:56] LABS: ALBUMIN 2.4 g/dL (3.4-5.0); BILIRUBIN,TOTAL 0.5 mg/dL (0.2-1.0); CALCIUM, SERUM 8.8 mg/dL (8.5-10.1); CREATININE 1.3 mg/dL (0.6-1.3); POTASSIUM 4.7 mmol/L (3.5-5.1); TOTAL PROTEIN, SERUM 7.6 g/dL (6.4-8.2)
[2020-03-21 09:57] LABS: BASOPHILS % (AUTO) 0.5 % (0.0-2.0); EOSINOPHILS % (AUTO) 0.2 % (0.0-6.0); HEMATOCRIT 56 % (33-45); HEMOGLOBIN 17.6 g/dL (11.5-14.8); LYMPHOCYTES # (AUTO) 1.4 /CMM (0.8-4.8); LYMPHOCYTES % (AUTO) 34.6 % (20.0-44.0); MEAN CORPUSCULAR HGB CONC 31 g/dl (31.0-36.0); MEAN CORPUSCULAR VOLUME 88 fL (82-100); MONOCYTES # (AUTO) 0.1 /CMM (0.1-1.30); NEUTROPHILS # (AUTO) 2.4 /CMM (1.8-8.9); NEUTROPHILS % (AUTO) 61.7 % (43.0-81.0); PLATELET COUNT (AUTO) 143 /CMM (150-450); RED BLOOD CELL COUNT(AUTO) 6.39 MIL/uL (4.0-5.2); WHITE BLOOD COUNT (AUTO) 3.9 K/uL (4.3-11.0)
--- NOTE | 2020-03-21 09:57 | NUR ---
COVID SWAB DONE SENT TO LAB.
--- NOTE | 2020-03-21 09:58 | NUR ---
dr francis aware
--- NOTE | 2020-03-21 09:58 | NUR ---
lab called triponin 0.062
[2020-03-21] MEDS ORDERED: ACETAMINOPHEN 325 MG TABLET MC ONE (10:00)
--- NOTE | 2020-03-21 10:02 | NUR ---
RT RECD PT VIA EMS FOR SOB TRACHED INTACT PORTEX BIVONA 8 CUFFED ON MECH VENT AC 16 450 +5 100% VENT PLUGGED IN RED OUTLET BROWN SET UP SX THICK YELLOW SECRETIONS PT TACHYPNEIC WILL CONT TO MONITOR Addendum: 03/21/20 at 1004 by PRATIMA RIOS RT Amended: Links added.
[2020-03-21] MEDS ORDERED: ACETAMINOPHEN 325 MG TABLET ONE (10:14)
[2020-03-21] MEDS ORDERED: FUROSEMIDE 40 MG/4 ML VIAL ONE (10:14)
[2020-03-21 10:19] LABS: D-DIMER 0.16 mg/L(FEU (0.17-0.50)
[2020-03-21 10:30] LABS: C-REACTIVE PROTEIN 20.1 mg/dL (0.0-0.9)
[2020-03-21] MEDS ORDERED: FUROSEMIDE 40 MG/4 ML VIAL IV ONE (10:30)
--- NOTE | 2020-03-21 11:17 | NUR ---
BP IS 96/54 HR 99, DR CAMPBELL MADE AWARE.
[2020-03-21] MEDS ORDERED: ASPIRIN 325 MG TABLET ONE (11:18)
[2020-03-21] MEDS ORDERED: ASPIRIN 325 MG TABLET GT ONE (11:30)
--- NOTE | 2020-03-21 11:31 | NUR ---
BED ASSIGNMENT RECEIVED. PT WILL GO TO 257
[2020-03-21 11:35] LABS: ABG BASE EXCESS 4.5 mmol/L; ABG OXYGEN SATURATION 99.4 % (92.0-98.5); ABG PH 7.471 (7.350-7.450); ABG PO2 342.3 mmHg (75.0-100.0); AaDO2 330.7 mmHg; COHb 0.3 % (0.5-1.5); MetHb 0.2 % (0.0-1.5); O2Hb 98.9 % (94.0-97.0); PEEP,BG 5 cm H2O; SITE, ABG Right Radial; VT, ABG 450 mL
--- NOTE | 2020-03-21 13:04 | NUR ---
RECEIVED VERBAL AUTHORIZATION FROM JIN ALONSO
--- NOTE | 2020-03-21 13:18 | NUR ---
[facility] CALLED [employer] BUSINESS SEGMENT LEADER PAGED.
--- NOTE | 2020-03-21 13:24 | NUR ---
REPORT GIVEN TO ARMEN LAN AT ICU
[2020-03-21] MEDS ORDERED: ENOXAPARIN SODIUM 80 MG/0.8 ML DISP.SYRIN SQ ONE (13:30)
--- NOTE | 2020-03-21 13:35 | NUR ---
PT ARRIVED IN ICU TO ROOM 257. PT OBTUNDED ON VENT VIA TRACH. WOUND PICTURES TAKEN. WILL CONTINUE TO MONITOR.
--- NOTE | 2020-03-21 13:49 | NUR ---
PT TRASNFERRED TO RMM 257
[2020-03-21] MEDS ORDERED: *INSULIN REGULAR(HUMULIN R)HUM 100 UNIT/ML VIAL SQ PRN (15:00)
[2020-03-21] MEDS ORDERED: MAGNESIUM HYDROXIDE 30 ML UDC PO PRN (15:00)
[2020-03-21] MEDS ORDERED: ACETAMINOPHEN 325 MG TABLET PO PRN (15:00)
[2020-03-21] MEDS ORDERED: ONDANSETRON HCL/PF 4 MG/2 ML VIAL IVP PRN (15:00)
[2020-03-21] MEDS ORDERED: MAG HYDROX/AL HYDROX/SIMETH 30 ML UDC PO PRN (15:00)
[2020-03-21] MEDS ORDERED: INSULIN REGULAR, HUMAN 100 UNIT/ML 3 ML VIAL SQ PRN (15:00)
[2020-03-21] MEDS ORDERED: DEXTROSE 50%-WATER 50 ML DISP.SYRIN IV PRN ×2 (15:00→15:30)
[2020-03-21] MEDS ORDERED: VANCOMYCIN 1 GM in IV D5W 250ml IV ONE (15:30)
[2020-03-21] MEDS ORDERED: ZOSYN IVPB 3.375 G in IV D5W 50ml IV ONE (16:00)
[2020-03-21] MEDS: ENOXAPARIN SODIUM 40 MG/0.4 ML DISP.SYRIN SQ SCH (16:26)
[2020-03-21] MEDS: FUROSEMIDE 40 MG/4 ML VIAL IV SCH (16:41)
[2020-03-21] MEDS ORDERED: BLOOD SUGAR DIAGNOSTIC 1 EACH STRIP VI SCH (17:30)
[2020-03-21] MEDS: BLOOD SUGAR DIAGNOSTIC 1 EACH STRIP IN SCH (18:08)
--- NOTE | 2020-03-21 19:00 | NUR ---
Received patient with tracheostomy to the ventilator on AC mode,lethargic,slightly opens eyes and withdraws extremities to pain,does not follow commands.Not in any respiratory distress,breathing regular and non labored.Noted bilateral lower extremities /feet 2+ edema.With G tube clamped,patent.
[2020-03-21] MEDS: INSULIN REGULAR, HUMAN 100 UNIT/ML 3 ML VIAL SQ PRN (19:14)
--- NOTE | 2020-03-21 19:30 | NUR ---
END OF SHIFT NOTE: NEW ADMIT ORDERS FOLLOWED, ADMISSION ASSESSMENTS COMPLETED. PT HAD 2 BMS SINCE ADMISSION AND 850ML OUT OF WOLFE CATHETER. PT IS NOW AWAKE AND RESPONDING APPROPRIATELY TO YES AND NO QUESTIONS. PT CHECKED ON HOURLY AND PRN BY NURSING STAFF.
[2020-03-21] MEDS: PIPERACILLIN /TAZOBACTAM 3.375 G in IV D5W 100 ML IV SCH (21:25)
--- NOTE | 2020-03-21 22:00 | NUR ---
Seems more responsive and more alert,opens eyes,moves both arms .V/S stable ,not in any distress.
[2020-03-22] VITALS (31 sets, daily range): BP systolic 69–144; BP diastolic 29–91
--- NOTE | 2020-03-22 | NUR ---
Remains stable.Opens eyes on occasion but still lethargic.
[2020-03-22] MEDS: INSULIN REGULAR, HUMAN 100 UNIT/ML 3 ML VIAL SQ PRN ×4 (00:01→23:42)
[2020-03-22] MEDS: VANCOMYCIN HCL 0.75 GM in IV D5W 250 ML IV SCH ×2 (03:58→16:27)
--- NOTE | 2020-03-22 04:00 | NUR ---
Tolerated am bath,sacral pressure injury care done.Look very awake this am.more awake anmd slrt,
[2020-03-22 04:22] LABS: BASOPHILS % (AUTO) 0.5 % (0.0-2.0); EOSINOPHILS % (AUTO) 6.4 % (0.0-6.0); HEMATOCRIT 28 % (33-45); HEMOGLOBIN 8.9 g/dL (11.5-14.8); LYMPHOCYTES # (AUTO) 1.6 /CMM (0.8-4.8); LYMPHOCYTES % (AUTO) 20.5 % (20.0-44.0); MEAN CORPUSCULAR HGB CONC 32 g/dl (31.0-36.0); MEAN CORPUSCULAR VOLUME 85 fL (82-100); MONOCYTES # (AUTO) 0.4 /CMM (0.1-1.30); MONOCYTES % (AUTO) 5.5 % (2.0-12.0); NEUTROPHILS # (AUTO) 5.1 /CMM (1.8-8.9); NEUTROPHILS % (AUTO) 67.1 % (43.0-81.0); PLATELET COUNT (AUTO) 374 /CMM (150-450); RED BLOOD CELL COUNT(AUTO) 3.27 MIL/uL (4.0-5.2); WHITE BLOOD COUNT (AUTO) 7.6 K/uL (4.3-11.0)
[2020-03-22 04:33] LABS: CALCIUM, SERUM 9.1 mg/dL (8.5-10.1); CREATININE 1.2 mg/dL (0.6-1.3); MAGNESIUM 1.7 mg/dL (1.8-2.4); PHOSPHORUS 3.4 mg/dL (2.5-4.9); POTASSIUM 3.3 mmol/L (3.5-5.1)
[2020-03-22] MEDS: PIPERACILLIN /TAZOBACTAM 3.375 G in IV D5W 100 ML IV SCH ×3 (05:11→20:58)
--- NOTE | 2020-03-22 06:00 | NUR ---
Remains stable, saturating well,not in any distress.Still pending Covid pcr test, maintain on contact isolation.
[2020-03-22] MEDS: BLOOD SUGAR DIAGNOSTIC 1 EACH STRIP IN SCH ×5 (06:26→23:40)
--- NOTE | 2020-03-22 07:00 | NUR ---
Report given to Dereje LAN
--- NOTE | 2020-03-22 07:18 | NUR ---
WOUND CARE CONSULT: REVIEWED CHART,NURSING DOCUMENTATION AND PHOTOS WHICH INDICATE MULTIPLE WOUNDS INCLUDING BLISTER TO BACK, LARGE NECROTIC WOUND TO SACRUM AND WOUND TO LEFT ANTERIOR THIGH, ALL PRESENT ON ADMISSION. RECOMMEND SURGICAL CONSULT. DR MANSFIELD TO BE NOTIFIED OF CONSULT REQUEST. PT IS ON LÁZARO ISOFLEX LOW AIRLOSS BED. RECOMMENDATIONS MADE FOR SKIN PROTECTION. DISCUSSED WITH NURSING STAFF. MD IN AGREEMENT WITH PLAN OF CARE.
--- NOTE | 2020-03-22 07:45 | NUR ---
ICU/RN INITIAL NOTES,AM RECEIVED REPORT FROM NIGHT NURSE. PT OPENS EYES, TRACKS, NODS YES AND NO. PT TRACH TO VENT WITH SETTINGS ORDERED. SINUS TACH ON TELE, BP TRENDING LOW, WILL CONTINUE TO MONITOR. WOLFE CATH ON PLACE, DRAINING YELLOW URINE. ALL NEEDS WILL BE ATTENDED TO, SAFETY MEASURES TAKEN, BED IN LOW POSITION, SIDE RAILS UP, CALL LIGHT WITHIN REACH. WILL CONTINUE CARE.
--- NOTE | 2020-03-22 08:00 | NUR ---
RT PATIENT REC'D TRACHED ON [facility] VENT WITH ORDERED SETTINGS SERGIO WELL. ALARMS CHECKED + AUDIBLE. TRACH SECURE AND IN PROPER POSITION. AIRWAY CHECKED AND SUCTIONED. PATIENT APPEARS COMFORTABLE AND IN NO DISTRESS. AMBU BAG AT HOB. Addendum: 03/22/20 at 0959 by ALEXANDRA MORFIN RT Amended: Links added.
--- NOTE | 2020-03-22 08:30 | NUR ---
ICU/RN: TEMP OF 101 NOTED, COOLING MEASURES TAKEN, TYLENOL ADMINISTERED. WILL REASSESS
[2020-03-22] MEDS: FUROSEMIDE 40 MG/4 ML VIAL IV SCH (08:39)
[2020-03-22] MEDS ORDERED: Magnesium 1GM/D5W 100ML PREMIX 100 ML IV SCH (09:00)
[2020-03-22] MEDS: POTASSIUM CL. PREMIX PERIPHER. 50 ML IV SCH ×4 (10:34→16:14)
[2020-03-22] MEDS ORDERED: IV NS 0.9% 250 ML IV ONE (14:00)
--- NOTE | 2020-03-22 14:45 | NUR ---
DR. QUICK- IN FOR CARDIOLOGY CONSULT. MD SPOKE AT LENGTH WITH PATIENT DAUGHTER ON PHONE: RE: PATIENT CONDITION AND PLAN OF CARE. RECEIVED CALL FROM PATIENT REQUESTING TO CHANGE CODE STATUS TO FULL CODE -DR. QUICK OKAYED AND ORDER PLACED.
--- NOTE | 2020-03-22 15:00 | NUR ---
ICU/RN: AND HAD EXTENSIVE CONVERSATION WITH DAUGHTER OF PT REGARDING PLAN OF CARE AND CURRENT CONDITION AND PROCEDURES NEEDED. PER PT NOW FULL CODE. WILL PRECEDE WITH CARDIAC WORKUP PER 'S ORDERS. CARE WILL BE COORDINATED WITH PRIMARY
--- NOTE | 2020-03-22 16:22 | NUR ---
ICU/RN: LEVOPHED STARTED FOR SHORT PERIOD FOR BP SUPPORT. MAP>60 AT THE TIME. WILL CONTINUE TO MONITOR
[2020-03-22] MEDS ORDERED: NOREPINEPHRINE 8 MG in IV NS 0.9% 242 ML IV PRN (18:30)
--- NOTE | 2020-03-22 19:00 | NUR ---
rEceived patient Received patient on Contact isolation(pending Covid pCR result), orally intubated on AC mode ,off pEEP due to episode of hypotension., not in any acute distress, breathing regular and non labored.Awake at this time, seems like tracking with eyes but not following commands,moves/lifts both arms,withdraws both lower extremities to pain. Tachycardic,HR in the 100's, off Levophed right now( maintain MAP of >60). pending PICC line insertion for pressors administration. Pending ECHO.Patient now is full code(further treatment of CHF/MVR).
--- NOTE | 2020-03-22 19:32 | NUR ---
ICU/RN: ENDING NOTES, AM REPORT ENDORSED TO NIGHT NURSE. PT TRACH TO VENT WITH SETTINGS ORDERED. NO ACUTE DISTRESS NOTED. SINUS TACH ON TELE. ALL NEEDS ATTENDED TO, SAFETY MEASURES TAKEN, BED IN LOW POSITION, SIDE RAILS UP, CALL LIGHT WITHIN REACH. WILL MONITOR VITALS, NEED TO KEEP MAP>90.
[2020-03-22] MEDS: THERAHONEY GEL 1.5 OZ TUBE TP SCH (19:41)
[2020-03-22] MEDS: ENOXAPARIN SODIUM 40 MG/0.4 ML DISP.SYRIN SQ SCH (21:11)
--- NOTE | 2020-03-22 22:00 | NUR ---
REmains stable,awake,alert,with low grade temp. cooling measures done.
--- NOTE | 2020-03-22 23:00 | NUR ---
PICC Line nurse at bedside for PICC line insertion,consent has been obtained. 2330 PICC line successfully inserted via AIDAN U/S guided.No X ray needed for confirmation as per PICC nurse.
[2020-03-23] VITALS (64 sets, daily range): BP systolic 76–129; BP diastolic 40–108
--- NOTE | 2020-03-23 | NUR ---
Remains stable,not in any distress,BP stable not requiring Pressors at this time.
--- NOTE | 2020-03-23 01:00 | NUR ---
Very awake and alert,following commands,not in any distress .Remains stable.
[2020-03-23 03:24] LABS: BASOPHILS % (AUTO) 0.6 % (0.0-2.0); EOSINOPHILS % (AUTO) 8.2 % (0.0-6.0); HEMATOCRIT 25 % (33-45); MEAN CORPUSCULAR HGB CONC 32 g/dl (31.0-36.0); MEAN CORPUSCULAR VOLUME 84 fL (82-100); MONOCYTES # (AUTO) 0.4 /CMM (0.1-1.30); MONOCYTES % (AUTO) 6.2 % (2.0-12.0); NEUTROPHILS # (AUTO) 4.2 /CMM (1.8-8.9); PLATELET COUNT (AUTO) 350 /CMM (150-450); RED BLOOD CELL COUNT(AUTO) 2.93 MIL/uL (4.0-5.2); WHITE BLOOD COUNT (AUTO) 7.3 K/uL (4.3-11.0)
[2020-03-23 03:27] LABS: BILIRUBIN,URINE NEGATIVE (NEGATIVE); BLOOD, URINE TRACE-INTA Ery/uL (NEGATIVE); COLOR,URINE YELLOW (YELLOW); LEUKOCYTE ESTERASE ,URINE MODERATE (NEGATIVE); NITRITE, URINE NEGATIVE (NEGATIVE); PROTEIN,URINE TRACE mg/dl (NEGATIVE); UGLUCOSE NEGATIVE (NEGATIVE); UROBILINOGEN,URINE 0.2 EU/dL (0.2)
--- NOTE | 2020-03-23 03:30 | NUR ---
Followed up with MOD about starting patient on tube feeding,(patient was on Glucerna 1.5 in SNF), Frances Baird INSERTING OPERATOR information systems consultant ,responded states she's not sure why the patient was kept NPO, ordered just to follow up with MD in am.
[2020-03-23 03:31] LABS: CALCIUM, SERUM 8.4 mg/dL (8.5-10.1); CREATININE 1.2 mg/dL (0.6-1.3); MAGNESIUM 1.7 mg/dL (1.8-2.4); PHOSPHORUS 3.2 mg/dL (2.5-4.9); POTASSIUM 3.1 mmol/L (3.5-5.1)
[2020-03-23] MEDS: VANCOMYCIN HCL 0.75 GM in IV D5W 250 ML IV SCH (03:40)
--- NOTE | 2020-03-23 03:41 | NUR ---
Held Vancomycin dose, Vanco Trough=22
[2020-03-23 03:47] LABS: BACTERIA,URINE 3+ /HPF (None Seen); MUCUS,URINE Few /LPF (None Seen); SQUAMOUS EPITHELIAL CELL,UR Moderate /HPF (None Seen); URINE AMORPHOUS PHOSPHATES Few /HPF (None Seen); WBC,URINE 21-50 /HPF (0-3)
[2020-03-23] MEDS: PIPERACILLIN /TAZOBACTAM 3.375 G in IV D5W 100 ML IV SCH ×3 (04:59→21:00)
[2020-03-23] MEDS: BLOOD SUGAR DIAGNOSTIC 1 EACH STRIP IN SCH ×3 (05:47→17:04)
[2020-03-23] MEDS: INSULIN REGULAR, HUMAN 100 UNIT/ML 3 ML VIAL SQ PRN ×2 (05:48→18:19)
--- NOTE | 2020-03-23 06:00 | NUR ---
stable all night ,not in any distress.awake,alert.
--- NOTE | 2020-03-23 07:00 | NUR ---
Report given to Sandor LAN.Patient remains stable,awake,alert,not in any distress.Endorsed to RN to follow up on the tube feeding order.
[2020-03-23] MEDS: POTASSIUM CL. PREMIX PERIPHER. 50 ML IV SCH ×4 (08:00→12:52)
--- NOTE | 2020-03-23 08:00 | NUR ---
rn notes Received patient on Contact isolation(pending Covid pCR result), orally intubated on AC mode , pEEP is 0, not in any acute distress, breathing regular and non labored. Awake at this time, following commands, elevated both arms, and bilateral lower extremities, swellen, using pillows. Tachycardic,HR in the 100's. iv access on right piccline, and right hand intact, infusing zosyn 25 mg/ml iv extended dose, also infusing MG 100 mg/ml, and Potasium 50 mg/ml /hr intact, HOB elevated for aspiration precaution, assist turn and repostion q 2 hr. will continued monitoring. Pending ECHO.Patient now is full code(further treatment of CHF/MVR).
[2020-03-23] MEDS: THERAHONEY GEL 1.5 OZ TUBE TP SCH (10:02)
[2020-03-23] MEDS: Magnesium 1GM/D5W 100ML PREMIX 100 ML IV SCH ×2 (10:02→11:09)
--- NOTE | 2020-03-23 11:15 | NUR ---
rn notes Get covis -19 result patient negative. infusing MG 100 ml/hr intact on right UA. and Potasium right hand intact, assist turn and repostion q 2 hr, no acute respiratory distress.
--- NOTE | 2020-03-23 11:30 | NUR ---
RN NOTES GET TO ORDER VIA Dr ORTEGA AT THIS TIME NPO MIDNIGHT, CONSEN FOR LT/RT HEART CATHETERIZATION, NO IV FLUIDS. ORDER TAKEN AND CARRIED OUT.
--- NOTE | 2020-03-23 13:22 | NUR ---
rn notes bs-142 mg/dl no coverage given. called [employer] Laborer will start glucerna 30 cc/hr, and increase to 65 in 24hr. order taken and carried out.
--- NOTE | 2020-03-23 13:50 | NUR ---
EDYTA MORALES CALLED PATIENT'S DAUGHTER NAME LAURIE SALVADOR AND GET TO SIGNED CONSENT FOR SCHEDULED LEFT AND RIGHT HEART CATHETERIZATION SCHEDULED TOMORROW 03/24/20, NOELLE SIGN WITH CO- WORKER ALEM RAMOS RN.
--- NOTE | 2020-03-23 14:13 | NUR ---
RN NOTES PATIENT GETTING ECHO AT THIS TIME.
[2020-03-23] MEDS: FUROSEMIDE 20 MG/2 ML VIAL IV SCH ×2 (14:34→17:04)
[2020-03-23] MEDS: VANCOMYCIN 1 GM in IV D5W 250 ML IV SCH ×2 (16:00→17:34)
--- NOTE | 2020-03-23 16:00 | NUR ---
RN NOTES HELD VANCOMYCIN INFUSION BECAUSE OF VANCO TROUGH IS 22, PHARMACY AWARE OF.
--- NOTE | 2020-03-23 17:00 | NUR ---
rn notes started Glucerna 30 ml/hr, keep hob elevated for aspiration precaution.
[2020-03-23] MEDS: GLUCERNA 1.2 1,000 ML BOTTLE NG SCH (17:43)
--- NOTE | 2020-03-23 18:30 | NUR ---
RN NOTES PM CARE DONE, ADMINISTERED SCHEDULED MEDICATION, BS-131 MG/DL COVERAGE GIVEN, INFUSING VANCOMYCIN 250MG/ ML ON RIGHT UA INTACT, WOLFE CATH DRAINING YELLOW OUTPUT, HOB KEEP ELEVATED FOR ASPIRATION PRECAUTION. ASSIST TURN AND REPOSTION Q2 HR. ENDORSED ONCOMING NURSE FOLLOW PLAN OF CARE.
[2020-03-23] MEDS ORDERED: LIDOCAINE 1%-EPI 1:100,000 20 ML VIAL TP ONE (20:00)
[2020-03-23] MEDS ORDERED: SILVER NITRATE APPLICATOR 1 EA BOX TP SCH (20:00)
--- NOTE | 2020-03-23 20:30 | NUR ---
RN NOTE PER JORGE LUIS, SACRAL DEBRIDMENT WILL BE DONE NEXT WEEK NOT THIS WEEK. PT WILL NEED CONSENT
[2020-03-23] MEDS: ENOXAPARIN SODIUM 40 MG/0.4 ML DISP.SYRIN SQ SCH (21:00)
--- NOTE | 2020-03-23 21:31 | NUR ---
RN NOTE JOSE HELD PT WILL HAVE L/R HEART CATH TOMORROW IN THE AM 03/24/20
[2020-03-24] VITALS (38 sets, daily range): BP systolic 89–144; BP diastolic 44–84
--- NOTE | 2020-03-24 | NUR ---
RN NOTE PT NPO AT THIS TIME.
[2020-03-24] MEDS: BLOOD SUGAR DIAGNOSTIC 1 EACH STRIP IN SCH ×5 (00:34→23:52)
[2020-03-24] MEDS: INSULIN REGULAR, HUMAN 100 UNIT/ML 3 ML VIAL SQ PRN ×4 (00:54→23:54)
[2020-03-24] MEDS ORDERED: PIPERACILLIN /TAZOBACTAM 3.375 G in IV D5W 100 ML IV ONE (05:00)
--- NOTE | 2020-03-24 05:47 | NUR ---
RT NOTE Pt rec'd trached on [facility] vent on AC mode. Pt shows no signs of resp distress or sob. Trach is patent and secured. sx'd for thick mod amt of pale yellow secretions. Alarms are set and audible. vent plugged into red outlet. ambu bag bedside. Will continue to monitor closely. Addendum: 03/24/20 at 0547 by KENDAL GUILLEN RT Amended: Links added.
[2020-03-24 06:03] LABS: BASOPHILS % (AUTO) 0.5 % (0.0-2.0); EOSINOPHILS % (AUTO) 11.7 % (0.0-6.0); HEMATOCRIT 26 % (33-45); HEMOGLOBIN 8.4 g/dL (11.5-14.8); LYMPHOCYTES # (AUTO) 1.9 /CMM (0.8-4.8); LYMPHOCYTES % (AUTO) 23.9 % (20.0-44.0); MEAN CORPUSCULAR HGB CONC 32 g/dl (31.0-36.0); MEAN CORPUSCULAR VOLUME 85 fL (82-100); MONOCYTES # (AUTO) 0.5 /CMM (0.1-1.30); MONOCYTES % (AUTO) 6.9 % (2.0-12.0); NEUTROPHILS # (AUTO) 4.4 /CMM (1.8-8.9); PLATELET COUNT (AUTO) 409 /CMM (150-450); RED BLOOD CELL COUNT(AUTO) 3.08 MIL/uL (4.0-5.2); WHITE BLOOD COUNT (AUTO) 7.8 K/uL (4.3-11.0)
[2020-03-24 06:10] LABS: CALCIUM, SERUM 8.9 mg/dL (8.5-10.1); CREATININE 1.1 mg/dL (0.6-1.3); MAGNESIUM 1.9 mg/dL (1.8-2.4); PHOSPHORUS 3.5 mg/dL (2.5-4.9); POTASSIUM 3.2 mmol/L (3.5-5.1)
--- NOTE | 2020-03-24 07:30 | NUR ---
RN NOTE PT REMAINED STABLE, PM/AM CARE DONE, ADMINISTERED SCHEDULED MEDICATION, NPO SINCE MIDNIGHT TOLERATING CURRENT VENT SETTINGS. PT IN NO RESPIRATORY DISTRESS. HOB ELEVATED, BED LOCKED AND IN THE LOWEST POSITION, SAFETY MEASURES IN PLACE. AM RN AWARE TO OBTAIN CONSENT FOR SACRAL DEBRIDMENT FOR NEXT WEEK PER JORGE LUIS.
--- NOTE | 2020-03-24 07:40 | NUR ---
ICU/RN PT IS CHRONIC TACH ON THE VENT AC MODE,FIO2-40%.SAT O2-100%.V/S STABLE ,AFEBRILE.HR-115 BPM SINUS.NO PAIN REPORTED AT THIS TIME.RIGHT UPPER ARM PICC LINE -HL.G TUBE CLAMPED PT IS NPO AT THIS TIME DUE TO CODING ASSISTANT PROCEDURE IN AM.F/C DRAINING WITH YELLOW URINE.SACRUM WOUND COVERED WOTH DRESSING.PT IA AWAKE.ALERT,FOLLOWS COMMAND.HAS DRY SKIN.LABS REVIEW. K-3.2. NOTIFIED.NEW ORDERS RECIEVED.
[2020-03-24] MEDS: FUROSEMIDE 20 MG/2 ML VIAL IV SCH ×2 (08:11→16:41)
[2020-03-24] MEDS: POTASSIUM CL. PREMIX PERIPHER. 50 ML IV SCH ×4 (08:11→11:12)
[2020-03-24] MEDS: THERAHONEY GEL 1.5 OZ TUBE TP SCH (08:35)
[2020-03-24] MEDS: PROSOURCE / PROSTAT (PYXIS) 30 ML UDC GT SCH (08:36)
[2020-03-24] MEDS: Z GUARD REMEDY 2 OZ OINT TP PRN (08:36)
--- NOTE | 2020-03-24 09:00 | NUR ---
ICU/RN DUE MEDS ARE GIVEN ORDERED.AM CARE PROVIDED .WOUND DRESSING DONE ORDERED.SUCTION PROVIDED.PT HAS PINK-WHITE SECRETION.REPOSITION FOR COMFORT.
[2020-03-24] MEDS ORDERED: IV SET PRIMARY PUMP SET 1 EA INFUS.SET MC ONE (10:06)
[2020-03-24] MEDS ORDERED: IV NS 0.9% 1,000 ML ONE (10:06)
[2020-03-24] MEDS ORDERED: IODIXANOL 150 ML IV ONE (10:07)
[2020-03-24] MEDS ORDERED: HEPARIN SODIUM, PORCINE 1,000 UNIT/ML VIAL ONE (10:08)
[2020-03-24] MEDS ORDERED: NITROGLYCERIN ICAR 1,000 MCG/10 ML VIAL ICAR ONE (10:08)
[2020-03-24] MEDS ORDERED: VANCOMYCIN 1 GM in IV D5W 250 ML IV SCH (12:00)
--- NOTE | 2020-03-24 12:00 | NUR ---
ICU/RN PT WENT TO T[employer] CAR LOADER FOR THE PROCEDURE.
[2020-03-24] MEDS ORDERED: LIDOCAINE HCL/MPF 1% 30 ML VIAL IJ ONE (12:10)
[2020-03-24] MEDS ORDERED: FENTANYL PF 100MCG/2ML AMPUL ONE (12:16)
[2020-03-24] MEDS ORDERED: MIDAZOLAM HCL 2 MG/2ML VIAL ONE (12:16)
--- NOTE | 2020-03-24 14:25 | NUR ---
ICU/RN PT IS BACK FROM [facility]OSPITAL UNIT CLERK .NO INTERVENTION. V/S STABLE .RIGHT FEMORAL DRESSING NO S/S OF BLEEDING NOTED.
[2020-03-24] MEDS: PIPERACILLIN /TAZOBACTAM 3.375 G in IV D5W 100 ML IV SCH ×2 (14:50→20:13)
[2020-03-24] MEDS: GLUCERNA 1.2 1,000 ML BOTTLE NG SCH (14:51)
[2020-03-24 14:53] LABS: ABG BASE EXCESS 6.7 mmol/L; ABG OXYGEN SATURATION 66.7 % (92.0-98.5); ABG PCO2 44.5 mmHg (35.0-45.0); ABG PH 7.463 (7.350-7.450); ABG PO2 34.8 mmHg (75.0-100.0); COHb 1.5 % (0.5-1.5); MetHb 0.5 % (0.0-1.5); O2Hb 65.4 % (94.0-97.0); PEEP,BG 5 cm H2O; SITE, ABG A-Line; VENT MODE, BG AC 16; VT, ABG 450 mL
[2020-03-24 14:56] LABS: ABG BASE EXCESS 3.5 mmol/L; ABG OXYGEN SATURATION 69.6 % (92.0-98.5); ABG PCO2 41.2 mmHg (35.0-45.0); ABG PH 7.448 (7.350-7.450); ABG PO2 38.4 mmHg (75.0-100.0); AaDO2 199.4 mmHg; COHb 0.4 % (0.5-1.5); MetHb 0.4 % (0.0-1.5); PEEP,BG 5 cm H2O; SITE, ABG A-Line; VT, ABG 450 mL
[2020-03-24 14:58] LABS: ABG BASE EXCESS 4.9 mmol/L; ABG OXYGEN SATURATION 96.1 % (92.0-98.5); ABG PCO2 41.2 mmHg (35.0-45.0); ABG PH 7.466 (7.350-7.450); ABG PO2 92.2 mmHg (75.0-100.0); COHb 0.3 % (0.5-1.5); MetHb 0.3 % (0.0-1.5); O2Hb 95.5 % (94.0-97.0); PEEP,BG 5 cm H2O; SITE, ABG A-Line; VT, ABG 450 mL
[2020-03-24] MEDS: DAKINS QUARTER STRENGTH (0.125%) 480 ML BOTTLE TOP SCH (15:39)
--- NOTE | 2020-03-24 17:31 | NUR ---
ICU/RN PM CARE PROVIDED.WOUND DRESSING DONE ORDERED.DUE MEDS ARE GIVEN .BS-202.SUCTION PROVIDED.REPOSITION FOR COMFORT.CONTINUE MONITORING.
--- NOTE | 2020-03-24 19:45 | NUR ---
ICU/CORE LAYING MACHINE OPERATOR RECEIVED REPORT FROM DAY NURSE. SEE FLOWSHEET FOR ASSESSMENT,SKIN ISSUES ARE ADDRESSED ON FLOWSHEET ALONG WITH INTERVENTIONS TO EACH. PT IS ALERT TO SELF, ABLE TO FOLLOW VERY SIMPLE COMMANDS, SOMEWHAT. PT IS ON ORALLY INTUBATED ON VENT, TOLERATING THIS WELL WITH SATURATION AT 100%. PT WAS TURN AND REPOSITION FOR COMFORT AND CARE. WILL CONTINUE TO MONITOR THIS PT, NO ACUTE DISTRESS SEEN AT THIS TIME. Addendum: 03/25/20 at 2333 by ELI FERRARO LVN PT IS ON VENT AND NOT ORALLY INTUBATED. TOLERATING CURRENT VENT SETTINGS
--- NOTE | 2020-03-24 19:55 | NUR ---
ICU/FOOD SERVICE COORDINATOR CHEM WAS DONE FOR POTASSIUM LEVEL. DUE TO POTASSIUM LEVEL BEING 3.2. AWAIT FOR RESULTS.
[2020-03-24] MEDS: ENOXAPARIN SODIUM 40 MG/0.4 ML DISP.SYRIN SQ SCH (20:14)
[2020-03-24 20:21] LABS: CALCIUM, SERUM 8.7 mg/dL (8.5-10.1); POTASSIUM 3.6 mmol/L (3.5-5.1)
--- NOTE | 2020-03-24 20:30 | NUR ---
ICU/HAIR DRESSER POTASSIUM LEVEL WAS 3.6, NO NEED TO GIVE REPLACEMENT. CHARGE NURSE ED MADE AWARE.
--- NOTE | 2020-03-24 23:46 | NUR ---
RT NOTE Pt rec'd trached on [facility] vent on AC mode. Pt shows no signs of resp distress or sob. Trach is patent and secured. sx'd for thick mod amt of pale yellow secretions. Alarms are set and audible. vent plugged into red outlet. ambu bag bedside. Will continue to monitor closely. Addendum: 03/24/20 at 2346 by KENDAL GUILLEN RT Amended: Links added.
[2020-03-25] VITALS (24 sets, daily range): BP systolic 98–141; BP diastolic 44–94
[2020-03-25 04:19] LABS: BASOPHILS # (AUTO) 0.1 /CMM (0.0-0.2); EOSINOPHILS % (AUTO) 8.3 % (0.0-6.0); HEMATOCRIT 25 % (33-45); HEMOGLOBIN 8.2 g/dL (11.5-14.8); LYMPHOCYTES # (AUTO) 1.9 /CMM (0.8-4.8); LYMPHOCYTES % (AUTO) 25.7 % (20.0-44.0); MEAN CORPUSCULAR HGB CONC 33 g/dl (31.0-36.0); MEAN CORPUSCULAR VOLUME 84 fL (82-100); MONOCYTES # (AUTO) 0.5 /CMM (0.1-1.30); NEUTROPHILS # (AUTO) 4.5 /CMM (1.8-8.9); PLATELET COUNT (AUTO) 377 /CMM (150-450); RED BLOOD CELL COUNT(AUTO) 2.99 MIL/uL (4.0-5.2); WHITE BLOOD COUNT (AUTO) 7.6 K/uL (4.3-11.0)
[2020-03-25 04:40] LABS: CALCIUM, SERUM 8.8 mg/dL (8.5-10.1); CREATININE 1.1 mg/dL (0.6-1.3); MAGNESIUM 1.8 mg/dL (1.8-2.4); PHOSPHORUS 3.3 mg/dL (2.5-4.9); POTASSIUM 3.7 mmol/L (3.5-5.1)
[2020-03-25] MEDS: PIPERACILLIN /TAZOBACTAM 3.375 G in IV D5W 100 ML IV SCH ×3 (05:08→21:08)
[2020-03-25] MEDS: BLOOD SUGAR DIAGNOSTIC 1 EACH STRIP IN SCH ×4 (05:35→23:49)
[2020-03-25] MEDS: INSULIN REGULAR, HUMAN 100 UNIT/ML 3 ML VIAL SQ PRN ×3 (05:36→17:13)
[2020-03-25] MEDS: LORAZEPAM INJ 2 MG/ML VIAL IV PRN (05:43)
--- NOTE | 2020-03-25 06:00 | NUR ---
ICU/CRYPTOGRAPHIC CENTER SPECIALIST 0410-PT WAS TURNED AND REPOSTIONED FOR COMFORT AND CARE. PT WAS ALSO CLEANED UP FROM A LARGE LOSE STOOL.PT BECAME AGITATED, CALL WAS PLACED TO SATHISH CONNOLLY FOR SOMETHING TO RELAX PT. 0430- ORDERS WERE RECIEVED FOR ATIVAN 1MG IVP Q 6 HRS , MADE CHARGE NURSE AWARE OF THESE ORDERS, ALSO GOT ORDER FOR BREATHING TREATMENT. 0530- ORDERS WERE CARRIED OUT. 0600-PT APPEARS TO HAVE CALMED DOWN AND IS RESTING
[2020-03-25] MEDS: GLUCERNA 1.2 1,000 ML BOTTLE NG PRN (06:07)
[2020-03-25] MEDS: ALBUTEROL FS 2.5 MG/3 ML VIAL.NEB NEB SCH ×3 (07:20→19:51)
[2020-03-25] MEDS: IPRATROPIUM NEB FS 0.5 MG/2.5 ML AMPUL.NEB NEB SCH ×3 (07:20→19:51)
--- NOTE | 2020-03-25 07:45 | NUR ---
ICU/RN PT IS TRACH ON THE VENT AC MODE,FIO2-60%.SAT O2-100%.V/S STABLE AFEBRILE.NO PAIN REPORTED AT THIS TIME.RIGHT UPPER ARM PICC LINE.G-TUBE INFUSING WITH GLUCERNA AT 65 ML/HR.NO RESIDUAL NOTED.F/C DRAINING WITH CLOUDY YELLOW URINE.GENERELISED EDEMA PRESENT.SACRAL WOUND COVERED WITH DRESSING.SUCTION PROVIDED.PT HAS BLOODY SECRETION.REPOSITION FOR COMFORT.LABS REVIEW.
[2020-03-25] MEDS: PROSOURCE / PROSTAT (PYXIS) 30 ML UDC GT SCH (08:19)
[2020-03-25] MEDS: FUROSEMIDE 20 MG/2 ML VIAL IV SCH (08:19)
[2020-03-25] MEDS: Z GUARD REMEDY 2 OZ OINT TP PRN (08:20)
[2020-03-25] MEDS: THERAHONEY GEL 1.5 OZ TUBE TP SCH (08:20)
[2020-03-25] MEDS: DAKINS QUARTER STRENGTH (0.125%) 480 ML BOTTLE TOP SCH (08:20)
[2020-03-25] MEDS ORDERED: POTASSIUM CHLORIDE 20 MEQ POWDER PACKET GT SCH (08:30)
[2020-03-25] MEDS: FUROSEMIDE 100 MG/10 ML VIAL IV SCH ×3 (08:40→16:39)
--- NOTE | 2020-03-25 09:00 | NUR ---
ICU/RN DUE MEDS ARE GIVEN ORDERED. LASIX 80 MG IV TOTAL DOSE GIVEN ORDERED BY DR GRIFFITHS.POTASSIUM 60 MEQ GIVEN VIA G -TUBE. CONTINUE MONITORING.
[2020-03-25 11:06] LABS: ABG PCO2 40.3 mmHg (35.0-45.0); ABG PO2 96.1 mmHg (75.0-100.0); AaDO2 142.8 mmHg; COHb 0.4 % (0.5-1.5); MetHb 0.6 % (0.0-1.5); SITE, ABG Right Radial; VENT MODE, BG AC 16 450 40% +5
--- NOTE | 2020-03-25 16:30 | NUR ---
ICU/RN PM CARE PROVIDED.WOUND DRESSING DONE ORDERED. T-101.9. TYLENEOL VIA G-TUBE GIVEN .SUCTION PROVIDED.REPOSITION FOR COMFORT.
[2020-03-25] MEDS: ACETAMINOPHEN 650 MG/20.3 ML UDC NG PRN (17:12)
--- NOTE | 2020-03-25 18:00 | NUR ---
ICU/RN BS-200. COVERED WITH REGULAR INSULIN. T-100F .CONTINUE MONITORING.
--- NOTE | 2020-03-25 19:45 | NUR ---
ICU/VETERINARY ANATOMIST RECEIVED REPORT FROM DAY NURSE. SEE FLOWSHEET FOR ASSESSMENT,SKIN ISSUES ARE ADDRESSED ON FLOWSHEET ALONG WITH INTERVENTIONS TO EACH. PT IS ALERT TO SELF,RESPONDSIVE TO VOICE. PT IS ON VENT, TOLERATING THIS WELL WITH SATURATION AT 100%. PT WAS TURN AND REPOSITION FOR COMFORT AND CARE. WILL CONTINUE TO MONITOR THIS PT, NO ACUTE DISTRESS SEEN AT THIS TIME.
[2020-03-25] MEDS: ENOXAPARIN SODIUM 40 MG/0.4 ML DISP.SYRIN SQ SCH (21:09)
--- NOTE | 2020-03-25 22:30 | NUR ---
ICU/POOL HAND PT WAS GIVEN ORAL CARE AT THIS TIME , ALONG WITH PM CARE. PT TOLERATED THIS WELL. PT REMAINS ON CURRENT VENT SETTINGS WITH SATURATION AT 100%. WILL CONTINUE TO MONITOR THIS PT AND HER SATURATION. PT WAS THEN TURNED AND REPOSITIONED FOR COMFORT AND CARE, NO ACUTE DISTRESS SEEN AT THIS TIME.WILL CONTINUE TO MONITOR THIS PT.
[2020-03-26] VITALS (28 sets, daily range): BP systolic 103–139; BP diastolic 48–76
--- NOTE | 2020-03-26 | NUR ---
ICU/UPWARD BOUND DIRECTOR MIDNIGHT BLOOD SUGAR IS 97, NO COVEAGE FOR THIS PER MD'S ORDERS. WILL CONTINUE TO MONITOR THIS PT AND HER BLOOD SUGARS.
[2020-03-26] MEDS: IPRATROPIUM NEB FS 0.5 MG/2.5 ML AMPUL.NEB NEB SCH ×4 (01:33→19:50)
[2020-03-26] MEDS: ALBUTEROL FS 2.5 MG/3 ML VIAL.NEB NEB SCH ×4 (01:33→19:50)
--- NOTE | 2020-03-26 02:30 | NUR ---
ICU/PRISON WARDEN PT WAS GIVEN ORAL CARE AT THIS TIME , ALONG WITH AM CARE. PT TOLERATED THIS WELL. PT REMAINS ON CURRENT VENT SETTINGS WITH SATURATION AT 100%. WILL CONTINUE TO MONITOR THIS PT AND HER SATURATION. PT WAS THEN TURNED AND REPOSITIONED FOR COMFORT AND CARE, NO ACUTE DISTRESS SEEN AT THIS TIME.WILL CONTINUE TO MONITOR THIS PT.
--- NOTE | 2020-03-26 04:00 | NUR ---
ICU/LICENSED PHYSICAL THERAPIST AM LABS WERE DONE AWAIT FOR ANY CRITICAL LAB VALUES.
[2020-03-26] MEDS: PIPERACILLIN /TAZOBACTAM 3.375 G in IV D5W 100 ML IV SCH ×3 (04:14→22:14)
[2020-03-26 04:36] LABS: BASOPHILS # (AUTO) 0.1 /CMM (0.0-0.2); BASOPHILS % (AUTO) 0.6 % (0.0-2.0); HEMATOCRIT 24 % (33-45); HEMOGLOBIN 7.6 g/dL (11.5-14.8); LYMPHOCYTES # (AUTO) 2.2 /CMM (0.8-4.8); LYMPHOCYTES % (AUTO) 20.1 % (20.0-44.0); MEAN CORPUSCULAR HGB CONC 32 g/dl (31.0-36.0); MEAN CORPUSCULAR VOLUME 85 fL (82-100); MONOCYTES # (AUTO) 0.7 /CMM (0.1-1.30); MONOCYTES % (AUTO) 6.3 % (2.0-12.0); NEUTROPHILS # (AUTO) 7.2 /CMM (1.8-8.9); PLATELET COUNT (AUTO) 362 /CMM (150-450); RED BLOOD CELL COUNT(AUTO) 2.82 MIL/uL (4.0-5.2); WHITE BLOOD COUNT (AUTO) 10.9 K/uL (4.3-11.0)
[2020-03-26 04:57] LABS: ALBUMIN 2.2 g/dL (3.4-5.0); BILIRUBIN,TOTAL 0.6 mg/dL (0.2-1.0); CALCIUM, SERUM 8.6 mg/dL (8.5-10.1); CREATININE 1.3 mg/dL (0.6-1.3); MAGNESIUM 1.7 mg/dL (1.8-2.4); PHOSPHORUS 3.5 mg/dL (2.5-4.9); POTASSIUM 4.5 mmol/L (3.5-5.1); TOTAL PROTEIN, SERUM 6.8 g/dL (6.4-8.2)
[2020-03-26] MEDS: BLOOD SUGAR DIAGNOSTIC 1 EACH STRIP IN SCH ×4 (06:09→22:25)
[2020-03-26] MEDS: GLUCERNA 1.2 1,000 ML BOTTLE NG PRN (06:10)
[2020-03-26] MEDS: PROSOURCE / PROSTAT (PYXIS) 30 ML UDC GT SCH (09:40)
[2020-03-26] MEDS: DAKINS QUARTER STRENGTH (0.125%) 480 ML BOTTLE TOP SCH (09:40)
[2020-03-26] MEDS: THERAHONEY GEL 1.5 OZ TUBE TP SCH (09:40)
[2020-03-26] MEDS: Magnesium 1GM/D5W 100ML PREMIX 100 ML IV SCH ×2 (09:40→10:45)
[2020-03-26] MEDS ORDERED: BUMETANIDE INJ 16 MG in IV NS 0.9% 16 ML IV ONE (11:00)
[2020-03-26] MEDS: INSULIN REGULAR, HUMAN 100 UNIT/ML 3 ML VIAL SQ PRN ×3 (11:44→22:22)
[2020-03-26] MEDS: LORAZEPAM INJ 2 MG/ML VIAL IV PRN ×2 (14:27→22:34)
[2020-03-26] MEDS: ACETAMINOPHEN 650 MG/20.3 ML UDC NG PRN (14:27)
--- NOTE | 2020-03-26 18:28 | NUR ---
Received patient from ICU. Awake and oriented x1 , non-verbal , trach. On tele monitor ST 107. G-tube side clen , no residual will put back to feeding as ordered. AIDAN midline flushing well. F/C draining yellow clean urine; rectal tube in place , no output seen. VS are stable , afebrile. Sacral wound covered with Mepilex. Patient is comfortable, no distress noted. Will endorse to next shift for JAMES
[2020-03-26] MEDS: ENOXAPARIN SODIUM 40 MG/0.4 ML DISP.SYRIN SQ SCH (22:15)
[2020-03-27] VITALS: BP 125/73
[2020-03-27] MEDS: IPRATROPIUM NEB FS 0.5 MG/2.5 ML AMPUL.NEB NEB SCH ×4 (00:58→20:16)
[2020-03-27] MEDS: ALBUTEROL FS 2.5 MG/3 ML VIAL.NEB NEB SCH ×4 (00:58→20:16)
[2020-03-27 04:00] VITALS: BP 111/68
[2020-03-27] MEDS: PIPERACILLIN /TAZOBACTAM 3.375 G in IV D5W 100 ML IV SCH ×3 (05:29→21:13)
[2020-03-27 05:44] LABS: BASOPHILS % (AUTO) 0.4 % (0.0-2.0); EOSINOPHILS % (AUTO) 4.9 % (0.0-6.0); HEMATOCRIT 28 % (33-45); LYMPHOCYTES % (AUTO) 18.4 % (20.0-44.0); MEAN CORPUSCULAR HGB CONC 33 g/dl (31.0-36.0); MEAN CORPUSCULAR VOLUME 87 fL (82-100); MONOCYTES # (AUTO) 0.7 /CMM (0.1-1.30); MONOCYTES % (AUTO) 6.3 % (2.0-12.0); NEUTROPHILS # (AUTO) 7.4 /CMM (1.8-8.9); PLATELET COUNT (AUTO) 369 /CMM (150-450); RED BLOOD CELL COUNT(AUTO) 3.18 MIL/uL (4.0-5.2); WHITE BLOOD COUNT (AUTO) 10.6 K/uL (4.3-11.0)
[2020-03-27 06:07] LABS: ALBUMIN 2.3 g/dL (3.4-5.0); BILIRUBIN,TOTAL 0.5 mg/dL (0.2-1.0); CALCIUM, SERUM 8.9 mg/dL (8.5-10.1); CREATININE 1.4 mg/dL (0.6-1.3); MAGNESIUM 2.2 mg/dL (1.8-2.4); PHOSPHORUS 3.2 mg/dL (2.5-4.9); POTASSIUM 3.9 mmol/L (3.5-5.1); TOTAL PROTEIN, SERUM 7.2 g/dL (6.4-8.2)
[2020-03-27] MEDS: INSULIN REGULAR, HUMAN 100 UNIT/ML 3 ML VIAL SQ PRN ×3 (06:10→18:18)
[2020-03-27] MEDS: BLOOD SUGAR DIAGNOSTIC 1 EACH STRIP IN SCH ×3 (06:11→18:17)
--- NOTE | 2020-03-27 06:55 | NUR ---
RN notes Received patient in bed, eyes open with tracking. No cardiopulmonary distress. Breathing even and unlabored. Vent setting well tolerated. Alert x 2, non verbal. Noted with restlessness and facial grimacing, ativan administered, with help. Vital signs wnl. No significant change of condition. Kept clean and dry. Endorsed to next shift for continuity of care.
--- NOTE | 2020-03-27 07:00 | NUR ---
RN OPENING NOTE PT IN BED, RESTING, NOT RESPONDING TO VERBAL STIMULI BUT OPENS EYES TO SPEECH. PT IS ON VENT SETTINGS PER MD ORDER, PT IS BREATHING OVER VENT, RT NOTIFIED AND MADE AWARE. PT HAS WOLFE CATH DRAINING CLEAR DARK KAIDEN URINE VIA GRAVITY. PT HAS A FLEXI SEAL IN PLACE DRAINING TO GRAVITY WITH LIQUID STOOL PRESENT. PT HAS INFILTRATED RT HAND IV ACCES, WILL D/C. PT HAS AIDAN PICC LINE INFUSING WELL, NO SIGN OF INFILTRATION OR INFECTION. PT SACRAL DEEP TISSUE INJURY MEPILEX INTACT AND CLEAN. PT IS BEING TURNED Q2HR FOR OFFLOADING PER HOSPITAL PROTOCOL. PT IS ON G-TUBE FEED 65ML/HR, PT G-TUBE PLACEMENT ASSESSED, INTACT AND PATENT, NO SIGNS OF INFECTION. PT SAFETY PRECAUTIONS IN PLACE- BE LOCKED AND IN LOWEST POSITION, SR UP x2, CALL LIGHT WITHIN REACH, HOB ELEVATED. WILL CONTINUE TO MONITOR.
[2020-03-27] MEDS: LORAZEPAM INJ 2 MG/ML VIAL IV PRN (08:11)
--- NOTE | 2020-03-27 08:12 | NUR ---
EDYTA MCCLAIN FORGOT TO SCAN ATIVAN, ENTERED MANUALLY Addendum: 03/27/20 at 1114 by AYKAA LUNSFORD RN ATIVAN WAS ADMINISTERED AT 0745
[2020-03-27] MEDS: PROSOURCE / PROSTAT (PYXIS) 30 ML UDC GT SCH (09:40)
[2020-03-27] MEDS: DAKINS QUARTER STRENGTH (0.125%) 480 ML BOTTLE TOP SCH ×2 (09:41→14:34)
[2020-03-27] MEDS: THERAHONEY GEL 1.5 OZ TUBE TP SCH (09:42)
[2020-03-27] MEDS ORDERED: Medication Not On Formulary EA (Ondansetron Hcl 4 MG) GT PRN (10:00)
[2020-03-27] MEDS: METOLAZONE 2.5 MG TABLET GT SCH (11:24)
[2020-03-27] MEDS: ASPIRIN 81 MG TAB.CHEW GT SCH (11:24)
[2020-03-27] MEDS: FENOFIBRATE NANOCRYS (145 MG) 145 MG TABLET GT SCH (11:27)
[2020-03-27] MEDS: MULTIVIT W/MINERALS 1 TAB TABLET GT SCH (11:28)
[2020-03-27] MEDS: CYCLOBENZAPRINE 10 MG TABLET GT SCH ×2 (11:28→21:12)
--- NOTE | 2020-03-27 11:30 | NUR ---
RN NOTE D/C'ed RT HAND IV ACCESS. NO BLEEDING NOTED
[2020-03-27 12:00] VITALS: BP 121/66
[2020-03-27] MEDS ORDERED: SILVER NITRATE APPLICATOR 1 EA BOX TP STA (12:34)
[2020-03-27] MEDS ORDERED: LIDOCAINE 1%-EPI 1:100,000 20 ML VIAL TP STA (12:34)
--- NOTE | 2020-03-27 13:30 | NUR ---
RN NOTE WOUND PA VISITED PT FOR DEBRIDEMENT. PT TOLERATED WELL
[2020-03-27 16:00] VITALS: BP 135/72
[2020-03-27] MEDS: GABAPENTIN 300 MG CAPSULE GT SCH (17:27)
[2020-03-27] MEDS: LEVETIRACETAM SOL (5 ML) 100 MG/ML UDC GT SCH (17:27)
[2020-03-27] MEDS: FERROUS SULFATE UDC 300 MG/5 ML UDC GT SCH (17:27)
--- NOTE | 2020-03-27 18:00 | NUR ---
RN TELE1 CALLED PHARMACY TO REFIL REQUIP EARLIER IN THE DAY. THEY WERE NOT ABLE TO. CALLED AGAIN. PHARMACY STATE TO GIVE MEDICATION FOR REQUIP NOW , BUT DO NOT GIVE THE LATER MEDICATION LATER FOR 2100
--- NOTE | 2020-03-27 18:35 | NUR ---
RN TELE1 PT IN BED, RESTING,PATIENT WAKES UP WHEN NAME IS CALL PATINT DOES SMILE AND IS AWARE OF HER SURROUNDINGS . PT IS ON VENT SETTINGS PER MD ORDER, PT IS BREATHING OVER VENT, RT NOTIFIED AND MADE AWARE. PT HAS WOLFE CATH DRAINING CLEAR DARK KAIDEN URINE VIA GRAVITY. PT HAS A FLEXI SEAL IN PLACE DRAINING TO GRAVITY WITH LIQUID STOOL PRESENT 150 ML OUT . PT HAS AIDAN PICC LINE INFUSING WELL, NO SIGN OF INFILTRATION OR INFECTION. PT SACRAL DEEP TISSUE INJURY MEPILEX INTACT AND CLEAN. PATIENT DID HAVE SCARAL DEBARMENTS PT IS BEING TURNED Q2HR FOR OFFLOADING PER HOSPITAL PROTOCOL. PT IS ON G-TUBE FEED 65ML/HR, PT G-TUBE PLACEMENT ASSESSED, INTACT AND PATENT, NO SIGNS OF INFECTION. PT SAFETY PRECAUTIONS IN PLACE BED LOCKED LOWEST POSTION CALL LIGHT WITH IN REACH ALL SAFETY MEASURE IMPLEMENTED PER HOSPITAL POLICY
[2020-03-27] MEDS: ropiniROLE 0.5 MG TABLET GT SCH ×2 (19:03→21:12)
--- NOTE | 2020-03-27 19:40 | NUR ---
BUSINESS SERVICES ANALYST NOTES, PT IN BED, ASLEEP BUT AROUSES TO VERBAL STIMULI, ON MECHANICAL VENTILATOR, TOLERATING SETTINGS WELL, SINUS TACHY ON TELE MONITOR WITH HR IN LOW 100S AT THIS TIME, AIDAN PICC LINE PATENT AND INTACT, NO SIGN OF INFILTRATION OR INFECTION, S/P SACRAL DEBRIDEMENT TODAY, GT IN PLACE, FEEDING INFUSING 65ML/HR, AND PATIENT TOLERATED WELL, MINIMAL RESIDUAL NOTED, SAFETY PRECAUTIONS IN PLACE BED LOCKED AND LOWEST POSITION, CALL LIGHT WITH IN REACH, WILL CONTINUE TO MONITOR CLOSELY.
[2020-03-27 20:00] VITALS: BP 122/61
[2020-03-27] MEDS: ATORVASTATIN 40 MG TABLET GT SCH (21:14)
[2020-03-27] MEDS: QUETIAPINE FUMARATE 25 MG TABLET GT SCH (21:14)
[2020-03-27] MEDS: ENOXAPARIN SODIUM 40 MG/0.4 ML DISP.SYRIN SQ SCH (21:17)
[2020-03-27] MEDS: GLUCERNA 1.2 1,000 ML BOTTLE NG PRN (23:09)
[2020-03-28] VITALS: BP 111/59
[2020-03-28] MEDS: BLOOD SUGAR DIAGNOSTIC 1 EACH STRIP IN SCH ×5 (00:49→23:21)
[2020-03-28] MEDS: INSULIN REGULAR, HUMAN 100 UNIT/ML 3 ML VIAL SQ PRN ×5 (00:51→23:19)
[2020-03-28] MEDS: ALBUTEROL FS 2.5 MG/3 ML VIAL.NEB NEB SCH ×4 (02:21→19:22)
[2020-03-28] MEDS: IPRATROPIUM NEB FS 0.5 MG/2.5 ML AMPUL.NEB NEB SCH ×4 (02:21→19:22)
[2020-03-28 04:00] VITALS: BP 110/79
[2020-03-28] MEDS: PIPERACILLIN /TAZOBACTAM 3.375 G in IV D5W 100 ML IV SCH ×3 (05:02→20:46)
[2020-03-28] MEDS: ropiniROLE 0.5 MG TABLET GT SCH ×3 (05:02→20:46)
[2020-03-28 06:14] LABS: BASOPHILS % (AUTO) 0.4 % (0.0-2.0); EOSINOPHILS % (AUTO) 7.4 % (0.0-6.0); HEMATOCRIT 28 % (33-45); LYMPHOCYTES # (AUTO) 2.3 /CMM (0.8-4.8); LYMPHOCYTES % (AUTO) 23.4 % (20.0-44.0); MEAN CORPUSCULAR HGB CONC 33 g/dl (31.0-36.0); MEAN CORPUSCULAR VOLUME 87 fL (82-100); MONOCYTES # (AUTO) 0.7 /CMM (0.1-1.30); MONOCYTES % (AUTO) 7.1 % (2.0-12.0); NEUTROPHILS % (AUTO) 61.7 % (43.0-81.0); PLATELET COUNT (AUTO) 331 /CMM (150-450); RED BLOOD CELL COUNT(AUTO) 3.16 MIL/uL (4.0-5.2); WHITE BLOOD COUNT (AUTO) 9.8 K/uL (4.3-11.0)
[2020-03-28 06:28] LABS: CALCIUM, SERUM 8.8 mg/dL (8.5-10.1); CREATININE 1.5 mg/dL (0.6-1.3); MAGNESIUM 2.2 mg/dL (1.8-2.4); POTASSIUM 4.1 mmol/L (3.5-5.1)
--- NOTE | 2020-03-28 07:00 | NUR ---
MOTOR RUNNER CLOSING NOTES, PT IN BED, AWAKE AT THIS TIME, A/O TO SELF, ON MECHANICAL VENTILATOR, TOLERATING SETTINGS WELL, SINUS TACHY ON TELE MONITOR WITH HR IN LOW 100S MOST OF THE NIGHT, AIDAN PICC LINE PATENT AND INTACT, NO SIGN OF INFILTRATION OR INFECTION, S/P SACRAL DEBRIDEMENT YESTERDAY, WOUND TREATMENT DONE, NO SIGNIFICANT CHANGE IN CONDITION DURING THE NIGHT, SAFETY PRECAUTIONS IN PLACE BED LOCKED AND LOWEST POSITION, CALL LIGHT WITH IN REACH, WILL ENDORSE CONTINUITY OF CARE TO ONCOMING NURSE.
--- NOTE | 2020-03-28 07:15 | NUR ---
LEARNING TECHNOLOGIST OPENING NOTES Received patient asleep in bed. Appears calm and relaxed. No signs of distress. Has trach and vent. Settings: AC 16 TV 400 FIO2 40% PEEP 5. Tolerating well. Patient is AOX1-[address] ST 106 bpm. Noted with payne catheter draining clear yellow urine and Flexiseal brown and liquid stool. GTF running Glucerna @ 65ml/hr tolerating well no residual. Positive placement confirmed. Patient has AIDAN PICC line running Zosyn @ 25ml/hr. DVT pump working and on patient. Kept heels elevated. Repositioned patient. Safety measures maintained. Call light within reach. Bed locked and on lowest position. Will cont to monitor.
[2020-03-28 08:00] VITALS: BP 115/62
[2020-03-28] MEDS: CYCLOBENZAPRINE 10 MG TABLET GT SCH ×2 (08:33→20:46)
[2020-03-28] MEDS: FERROUS SULFATE UDC 300 MG/5 ML UDC GT SCH ×2 (08:33→16:42)
[2020-03-28] MEDS: LEVETIRACETAM SOL (5 ML) 100 MG/ML UDC GT SCH ×2 (08:33→16:42)
[2020-03-28] MEDS: FENOFIBRATE NANOCRYS (145 MG) 145 MG TABLET GT SCH (08:33)
[2020-03-28] MEDS: ASPIRIN 81 MG TAB.CHEW GT SCH (08:33)
[2020-03-28] MEDS: MULTIVIT W/MINERALS 1 TAB TABLET GT SCH (08:34)
[2020-03-28] MEDS: METOLAZONE 2.5 MG TABLET GT SCH (08:34)
[2020-03-28] MEDS: PANTOPRAZOLE 40 MG/PACK PACK GT SCH (08:34)
[2020-03-28] MEDS: GABAPENTIN 300 MG CAPSULE GT SCH ×2 (08:34→16:42)
[2020-03-28] MEDS ORDERED: COLLAGENASE 30 GM TUBE TP SCH (09:00)
[2020-03-28] MEDS ORDERED: PANTOPRAZOLE 40 MG TABLET.DR PO SCH (09:00)
--- NOTE | 2020-03-28 09:00 | NUR ---
SEEN BY DR BESS NO NEW ORDER.
--- NOTE | 2020-03-28 09:15 | NUR ---
CT PELVIS DONE. PATIENT WAS WHEELED TO RADIOLOGY DEPT ASSISTED BY 2 TICKETING AGENT, RT AND RN VIA ACLS PROTOCOL. PATIENT CAME BACK. PROCEDURE TOLERATED WELL. NO SIGNS OF DISTRESS.
--- NOTE | 2020-03-28 09:45 | NUR ---
US KIDNEY DONE
[2020-03-28] MEDS: DAKINS QUARTER STRENGTH (0.125%) 480 ML BOTTLE TOP SCH ×2 (09:55)
[2020-03-28] MEDS: THERAHONEY GEL 1.5 OZ TUBE TP SCH (09:55)
--- NOTE | 2020-03-28 11:10 | NUR ---
SEEN BY STEPHEN HOFFMAN.
[2020-03-28 12:00] VITALS: BP 121/67
[2020-03-28] MEDS: GLUCERNA 1.2 1,000 ML BOTTLE NG PRN (15:07)
[2020-03-28 16:00] VITALS: BP 113/59
--- NOTE | 2020-03-28 18:46 | NUR ---
RN CLOSING NOTE PATIENT CURRENTLY IN BED, APPEARS CALM AND RELAXED. NO S/S OF PAIN, NO GRIMACING. NO S/S OF DISTRESS. VENT SETTINGS: AC 16 TV 400 FI02 40% PEEP 5. TOLERATING SETTINGS WELL. PATIENT IS A/OX1-2, NONVERBAL. EYES OPENING UPON CALLING NAME. PAYNE CATHETER IN PLACE, DRAINING CLEAR YELLOW URINE; FLEXISEAL BROWN, LIQUID STOOL. GTUBE FEEDING DECREASED TO GLUCERNA @60ML/HR. Settings: AC 16 TV 400 FIO2 40% PEEP 5. Tolerating well. Patient is AOX1-[address] ST 106 bpm. Noted with payne catheter draining clear yellow urine and Flexiseal brown and liquid stool. GTF running Glucerna @ 65ml/hr tolerating well no residual. Positive placement confirmed. Patient has AIDAN PICC line running Zosyn @ 25ml/hr. DVT pump working and on patient. Kept heels elevated. Repositioned patient. Safety measures maintained. Call light within reach. Bed locked and on lowest position. Will cont to monitor. Addendum: 03/28/20 at 1853 by CARLEEN JONES RN PLEASE DISREGARD NOTE AND READ UPDATED NOTE.
--- NOTE | 2020-03-28 18:53 | NUR ---
RN CLOSING NOTE - PATIENT CURRENTLY IN BED, APPEARS CALM AND RELAXED. NO S/S OF PAIN, NO GRIMACING. NO S/S OF DISTRESS. VENT SETTINGS: AC 16 TV 400 FI02 40% PEEP 5. TOLERATING SETTINGS WELL. PATIENT IS A/OX1-2, NONVERBAL. EYES OPENING UPON CALLING NAME. WOLFE CATHETER IN PLACE, DRAINING CLEAR YELLOW URINE; FLEXISEAL BROWN, LIQUID STOOL. GTUBE FEEDING DECREASED TO GLUCERNA @60ML/HR. PATIENT HAS A PATENT AIDAN PICC LINE, FLUSHING WELL. BED LOCKED IN LOWEST POSITION. ALL SAFETY MEASURES IN PLACE PER HOSPITAL POLICY. CALL LIGHT WITHIN REACH. WILL ENDORSE TO CONTACT OFFICER FOR JAMES.
--- NOTE | 2020-03-28 19:18 | NUR ---
RN NOTE RECEIVED PT IN BED IN SEMI AYERS'S POSITION. PT IS ALERT AND ORIENTED X O. PHYSICALLY RESPONSIVE TO VERBAL AND TACTILE STIMULI. PT TOLERATING VENT SETTINGS. RESPIRATIONS EVEN AND UNLABORED. PT SUCTIONED VIA TRACH AND TOLERATING WELL. IV LINES FLUSHED AND PATENT. FLEXISEAL PATENT AND IN PLACE DRAINING STOOL. WOLFE CATHETER PATENT AND IN PLACE DRAINING URINE. WITH TUBE FEEDING RUNNING ORDERED. NOTED WITH RESIDUAL OF 45CC. GT FLUSHED AND PATENT. SCD PUMPS IN PLACE. CALL LIGHT WITHIN REACH, SAFETY MEASURES IN PLACE, BED ALARM ON, BED LOCKED AND IN LOWEST POSITION, SIDE RAILS UP X 2, RT AT BEDSIDE, WILL MONITOR PATIENT.
[2020-03-28 20:00] VITALS: BP 131/61
--- NOTE | 2020-03-28 20:00 | NUR ---
RN NOTE NOTED WITH BLE SWELLING, REMOVED SCD PUMPS. WILL CLARIFY WITH MD IF OKAY TO USE SCD PUMPS WITH PRESENCE OF BLE EDEMA.
[2020-03-28] MEDS: ENOXAPARIN SODIUM 40 MG/0.4 ML DISP.SYRIN SQ SCH (20:48)
[2020-03-28] MEDS: ACETAMINOPHEN 650 MG/20.3 ML UDC NG PRN (20:49)
[2020-03-28] MEDS: QUETIAPINE FUMARATE 25 MG TABLET GT SCH (21:17)
[2020-03-28] MEDS: ATORVASTATIN 40 MG TABLET GT SCH (21:17)
--- NOTE | 2020-03-28 22:00 | NUR ---
RN NOTE COMPLETE BED BATH AND LINEN CHANGE COMPLETED. PT TOLERATED WELL. RESUMED TUBE FEEDING.
[2020-03-28] MEDS: IV NS 0.9% 250 ML IV PRN (22:42)
[2020-03-29] VITALS (35 sets, daily range): BP systolic 85–135; BP diastolic 36–64
--- NOTE | 2020-03-29 01:17 | NUR ---
RN NOTE NOTED WITH SBP RANGING FROM 80S TO 70S. LATEST BLOOD PRESSURE 73/33 VIA RIGHT ARM. HAILEE LANGE NOTIFIED WITH ORDER TO GIVE NS 500ML BOLUS X 1 AND CHECK AGAIN. IF SBP STILL BELOW 90, GIVE ADDITIONAL NS 500ML BOLUS. IF SBP STILL LOW, TRANSFER TO ICU, ORDER NOTED AND CARRIED OUT. Addendum: 03/29/20 at 0152 by JAZMYN LESLIE RN MD ALSO WITH ORDER TO DO CXR IN AM.
[2020-03-29] MEDS ORDERED: IV NS 0.9% 500 ML IV ONE ×2 (01:30→02:00)
[2020-03-29] MEDS: IPRATROPIUM NEB FS 0.5 MG/2.5 ML AMPUL.NEB NEB SCH ×4 (01:35→19:47)
[2020-03-29] MEDS: ALBUTEROL FS 2.5 MG/3 ML VIAL.NEB NEB SCH ×4 (01:36→19:47)
--- NOTE | 2020-03-29 01:46 | NUR ---
RN NOTE NS 500ML BOLUS X 1 ADMINISTERED VIA IV. BP 83/46. WILL ADMINISTER ADDITIONAL NS 500ML BOLUS X 1 ORDERED. WILL CONTINUE TO MONITOR.
--- NOTE | 2020-03-29 02:15 | NUR ---
RN NOTE 2ND NS 500ML IV BOLUS ADMINISTERED. BP 84/36. DR. STEPHEN NOTIFIED WITH ORDER TO TRANSFER PT TO ICU. METAL REFINER NOTIFIED.
--- NOTE | 2020-03-29 02:29 | NUR ---
RN NOTE PT TRANSFERRED TO ICU BED 257 UNDER ACLS PROTOCOL.
[2020-03-29] MEDS ORDERED: NOREPINEPHRINE 8 MG in IV NS 0.9% 242 ML IV PRN (02:30)
--- NOTE | 2020-03-29 02:30 | NUR ---
RN NOTES, PATIENT TRANSFERRED TO ICU 257-1 WITH ALL ACLS PROTOCOL FOR HYPOTENSION SBP IN 80S DESPITE 2X 500ML BOLUS.
--- NOTE | 2020-03-29 02:40 | NUR ---
RN NOTE DR. STEPHEN WITH ORDER TO START LEVOPHED PRN FOR SBP < 90.
[2020-03-29] MEDS: IV NS 0.9% 250 ML IV PRN (02:48)
--- NOTE | 2020-03-29 04:00 | NUR ---
RN NOTE PT NOTED WITHOUT BLE EDEMA AT THIS TIME, PLACED SCD PUMPS.
[2020-03-29] MEDS: PIPERACILLIN /TAZOBACTAM 3.375 G in IV D5W 100 ML IV SCH ×2 (04:32→12:38)
[2020-03-29] MEDS ORDERED: ropiniROLE 0.5 MG TABLET ONE (04:38)
[2020-03-29] MEDS: ropiniROLE 0.5 MG TABLET GT SCH ×3 (04:43→21:36)
--- NOTE | 2020-03-29 04:51 | NUR ---
RN NOTE SPOKE TO LAURIE SALVADOR (DAUGHTER) [phone]. GAVE UPDATE ON PT'S STATUS AND PLAN OF CARE.
[2020-03-29] MEDS: INSULIN REGULAR, HUMAN 100 UNIT/ML 3 ML VIAL SQ PRN ×4 (05:15→23:44)
[2020-03-29 05:24] LABS: BASOPHILS # (AUTO) 0.1 /CMM (0.0-0.2); BASOPHILS % (AUTO) 1.1 % (0.0-2.0); EOSINOPHILS % (AUTO) 8.2 % (0.0-6.0); HEMATOCRIT 26 % (33-45); HEMOGLOBIN 8.2 g/dL (11.5-14.8); LYMPHOCYTES # (AUTO) 1.6 /CMM (0.8-4.8); LYMPHOCYTES % (AUTO) 18.3 % (20.0-44.0); MEAN CORPUSCULAR HGB CONC 32 g/dl (31.0-36.0); MEAN CORPUSCULAR VOLUME 88 fL (82-100); MONOCYTES # (AUTO) 0.6 /CMM (0.1-1.30); MONOCYTES % (AUTO) 6.4 % (2.0-12.0); NEUTROPHILS # (AUTO) 5.8 /CMM (1.8-8.9); PLATELET COUNT (AUTO) 279 /CMM (150-450); RED BLOOD CELL COUNT(AUTO) 2.93 MIL/uL (4.0-5.2); WHITE BLOOD COUNT (AUTO) 8.8 K/uL (4.3-11.0)
[2020-03-29] MEDS: BLOOD SUGAR DIAGNOSTIC 1 EACH STRIP IN SCH ×4 (05:28→23:41)
[2020-03-29 05:36] LABS: CALCIUM, SERUM 8.1 mg/dL (8.5-10.1); CREATININE 1.2 mg/dL (0.6-1.3); POTASSIUM 3.7 mmol/L (3.5-5.1)
--- NOTE | 2020-03-29 07:08 | NUR ---
RN NOTE PT NON VERBAL BUT RESPONSIVE TO PAINFUL STIMULI. PT WITH TRACH CONNECTED TO VENT AND TOLERATING VENT SETTINGS WELL. RESPIRATIONS EVEN AND UNLABORED, NO SIGNS OR SYMPTOMS OF PAIN OR DISCOMFORT, VITAL SIGNS STABLE VIA BEDSIDE MONITOR. TUBE FEEDING RUNNING ORDERED VIA GT WITH MINIMAL RESIDUAL NOTED, RIGHT ARM PICC LINE PATENT. SCD PUMPS IN PLACE, WOLFE CATHETER PATENT AND IN PLACE DRAINING URINE VIA GRAVITY, FLEXISEAL PATENT AND IN PLACE DRAINING STOOL. WOUND CARE RENDERED ORDERED, PT TURNED AND REPOSITIONED FOR COMFORT. PT IS PENDING NEURO CONSULT, SAFETY MEASURES IN PLACE, BED LOCKED AND IN LOW POSITION, SIDE RAILS UP X 2, ENDORSED TO MORNING RN FOR JAMES.
[2020-03-29] MEDS: DAKINS QUARTER STRENGTH (0.125%) 480 ML BOTTLE TOP SCH ×2 (09:00→09:08)
[2020-03-29] MEDS: GABAPENTIN 300 MG CAPSULE GT SCH ×2 (09:06→18:46)
[2020-03-29] MEDS: FERROUS SULFATE UDC 300 MG/5 ML UDC GT SCH ×2 (09:06→18:46)
[2020-03-29] MEDS: PANTOPRAZOLE 40 MG/PACK PACK GT SCH (09:06)
[2020-03-29] MEDS: FENOFIBRATE NANOCRYS (145 MG) 145 MG TABLET GT SCH (09:06)
[2020-03-29] MEDS: ASPIRIN 81 MG TAB.CHEW GT SCH (09:06)
[2020-03-29] MEDS: MULTIVIT W/MINERALS 1 TAB TABLET GT SCH (09:06)
[2020-03-29] MEDS: CYCLOBENZAPRINE 10 MG TABLET GT SCH ×2 (09:06→21:36)
[2020-03-29] MEDS: LEVETIRACETAM SOL (5 ML) 100 MG/ML UDC GT SCH ×2 (09:06→18:46)
[2020-03-29] MEDS: THERAHONEY GEL 1.5 OZ TUBE TP SCH (09:07)
[2020-03-29] MEDS: GLUCERNA 1.2 1,000 ML BOTTLE NG PRN (14:54)
[2020-03-29] MEDS: LEVOFLOXACIN 750 MG /D5W 150ML 750 MG in PREMIX 1 EA IV SCH (14:54)
[2020-03-29] MEDS: ENOXAPARIN SODIUM 40 MG/0.4 ML DISP.SYRIN SQ SCH (21:00)
--- NOTE | 2020-03-29 21:34 | NUR ---
LAMBSKIN TRIMMER NOTES - LOVENOX HELD LATEST HEMOGLOBIN RESULT 8.2, PREVIOUSLY 9.0. PREVIOUS TRENDS OF HEMOGLOBIN DISCUSSED WITH DR STEPHEN. PER DR STEPHEN, HOLD 2100 DOSE. WILL CARRY OUT ORDER AND CONTINUE CLOSE MONITORING
[2020-03-29] MEDS: ATORVASTATIN 40 MG TABLET GT SCH (21:36)
[2020-03-29] MEDS: QUETIAPINE FUMARATE 25 MG TABLET GT SCH (21:36)
[2020-03-29] MEDS: ACETAMINOPHEN 650 MG/20.3 ML UDC NG PRN (23:43)
--- NOTE | 2020-03-29 23:57 | NUR ---
GANG PUSHER NOTES PATIENT NOTED WITH FACIAL GRIMACE, NODDING YES TO HAVING MILD PAIN. ALSO NOTED WITH ELEVATED RESPIRATORY RATE AND SLIGHTLY ELEVATED TEMPERATURE @ 100.3 AX. TYLENOL ADMINISTERED ORDERED
[2020-03-30] VITALS (24 sets, daily range): BP systolic 89–126; BP diastolic 47–64
[2020-03-30] MEDS: TRAMADOL HCL 50 MG TABLET GT PRN (00:55)
[2020-03-30] MEDS ORDERED: IV NS 0.9% 250 ML IV PRN (01:00)
--- NOTE | 2020-03-30 01:00 | NUR ---
MANAGER BEVERAGE NOTES PATIENT REMAINS TACHYPNEIC IN THE UPPER 30s DESPITE ADMINISTRATION OF TYLENOL. TRAMADOL ADMINISTERED ORDERED FOR PAIN. WILL MONITOR FOR EFFECTIVENESS
[2020-03-30] MEDS: IPRATROPIUM NEB FS 0.5 MG/2.5 ML AMPUL.NEB NEB SCH ×4 (01:43→19:35)
[2020-03-30] MEDS: ALBUTEROL FS 2.5 MG/3 ML VIAL.NEB NEB SCH ×4 (01:43→19:35)
--- NOTE | 2020-03-30 04:00 | NUR ---
TRAVEL ACCOMMODATION INSPECTOR NOTES TRAMADOL EFFECTIVE, RESPIRATORY RATE NOW IN THE 20's, NO RESPIRATORY DISTRESS NOTED. FULL BED BATH RENDERED, SACRAL WOUND PHOTOGRAPHED SINCE NO PICTURE TAKEN AFTER WOUND DEBRIDEMENT. WOUND CARE RENDERED ORDERED, TOLERATED WELL.
[2020-03-30 04:39] LABS: BASOPHILS # (AUTO) 0.1 /CMM (0.0-0.2); BASOPHILS % (AUTO) 1.1 % (0.0-2.0); EOSINOPHILS % (AUTO) 6.6 % (0.0-6.0); HEMATOCRIT 25 % (33-45); HEMOGLOBIN 7.9 g/dL (11.5-14.8); LYMPHOCYTES # (AUTO) 2.5 /CMM (0.8-4.8); LYMPHOCYTES % (AUTO) 26.9 % (20.0-44.0); MEAN CORPUSCULAR HGB CONC 32 g/dl (31.0-36.0); MEAN CORPUSCULAR VOLUME 88 fL (82-100); MONOCYTES # (AUTO) 0.5 /CMM (0.1-1.30); MONOCYTES % (AUTO) 5.9 % (2.0-12.0); NEUTROPHILS # (AUTO) 5.5 /CMM (1.8-8.9); NEUTROPHILS % (AUTO) 59.5 % (43.0-81.0); PLATELET COUNT (AUTO) 275 /CMM (150-450); RED BLOOD CELL COUNT(AUTO) 2.81 MIL/uL (4.0-5.2); WHITE BLOOD COUNT (AUTO) 9.3 K/uL (4.3-11.0)
[2020-03-30 04:57] LABS: CALCIUM, SERUM 8.1 mg/dL (8.5-10.1); CREATININE 1.2 mg/dL (0.6-1.3); MAGNESIUM 2.1 mg/dL (1.8-2.4); PHOSPHORUS 2.9 mg/dL (2.5-4.9); POTASSIUM 3.7 mmol/L (3.5-5.1)
[2020-03-30] MEDS: BLOOD SUGAR DIAGNOSTIC 1 EACH STRIP IN SCH ×4 (05:22→23:36)
[2020-03-30] MEDS: ropiniROLE 0.5 MG TABLET GT SCH ×3 (05:22→22:09)
[2020-03-30] MEDS: INSULIN REGULAR, HUMAN 100 UNIT/ML 3 ML VIAL SQ PRN ×4 (05:27→23:39)
--- NOTE | 2020-03-30 07:00 | NUR ---
FISH PACKER NOTES PATIENT RESTING IN BED, APPEARS COMFORTABLE. PATIENT NOW WITH PERIODS ON WAKEFULNESS, ALERT X1 TO SELF, SOMETIMES NODDING YES/NO AND MOUTHING WORDS, BUT REMAINS SLIGHTLY LETHARGIC. WILL ENDORSE PATIENT TO THE AM SHIFT NURSE FOR CONTINUITY OF CARE
--- NOTE | 2020-03-30 08:00 | NUR ---
ICU/RN INITIAL NOTES,AM RECEIVED REPORT FROM NIGHT NURSE. PT OPENS EYES, FOLLOWS COMMANDS. PT TRACH TO VENT WITH SETTINGS ORDERED. SINUS ON TELE, BP TRENDING LOW, WILL CONTINUE TO MONITOR. WOLFE CATH ON PLACE, DRAINING YELLOW URINE. RECTAL TUBE IN PLACE, SOME LOOSE STOOL NOTED. ALL NEEDS WILL BE ATTENDED TO, SAFETY MEASURES TAKEN, BED IN LOW POSITION, SIDE RAILS UP, CALL LIGHT WITHIN REACH. WILL CONTINUE CARE.
[2020-03-30] MEDS: LEVETIRACETAM SOL (5 ML) 100 MG/ML UDC GT SCH ×2 (08:09→17:13)
[2020-03-30] MEDS: PANTOPRAZOLE 40 MG/PACK PACK GT SCH (08:09)
[2020-03-30] MEDS: FERROUS SULFATE UDC 300 MG/5 ML UDC GT SCH ×2 (08:09→17:13)
[2020-03-30] MEDS: CYCLOBENZAPRINE 10 MG TABLET GT SCH (08:10)
[2020-03-30] MEDS: FENOFIBRATE NANOCRYS (145 MG) 145 MG TABLET GT SCH (08:10)
[2020-03-30] MEDS: MULTIVIT W/MINERALS 1 TAB TABLET GT SCH (08:10)
[2020-03-30] MEDS: GABAPENTIN 300 MG CAPSULE GT SCH ×2 (08:10→17:13)
[2020-03-30] MEDS: DAKINS QUARTER STRENGTH (0.125%) 480 ML BOTTLE TOP SCH ×2 (08:10→08:11)
[2020-03-30] MEDS: THERAHONEY GEL 1.5 OZ TUBE TP SCH (08:11)
[2020-03-30] MEDS: ASPIRIN 81 MG TAB.CHEW GT SCH (08:15)
[2020-03-30] MEDS: GLUCERNA 1.2 1,000 ML BOTTLE NG PRN (08:57)
--- NOTE | 2020-03-30 11:30 | NUR ---
ICU/RN: NEUROLOGY CONSULT WITH VIA ZOOM. ORDERS FOR EEG AND HEAD CT RECEIVED, WILL FOLLOW THROUGH. PER , PT CLEARED FOR TRANSFER FOR CARDIAC INTERVENTION IF NEEDED.
--- NOTE | 2020-03-30 12:00 | NUR ---
ICU/RN: AT BEDSIDE. PT ASSESSED. PLANNING OF TRANSFER FRIDAY TO [facility] FOR HIGH RISK VASCULAR INTERVENTION. CLEARED BY . WILL FOLLOW UP WITH CASE MANAGEMENT.
[2020-03-30] MEDS: LEVOFLOXACIN 750 MG /D5W 150ML 750 MG in PREMIX 1 EA IV SCH (15:24)
--- NOTE | 2020-03-30 18:36 | NUR ---
ICU/RN: HEAD CT DONE, NO ISSUES NOTED, RESULTS PENDING.
--- NOTE | 2020-03-30 19:14 | NUR ---
ICU/RN:REPORT ENDORSED TO NIGHT NURSE FOR JAMES. PT ALERT, AWAKE, FOLLOWS COMMANDS AT TIMES. TRACH TO VENT WITH SETTINGS ORDERED, NO DISTRESS. ALL NEEDS ATTENDED TO. FAMILY ZOOM CALLED, UPDATES GIVEN. ALL NEEDS ATTENDED TO, SAFETY MEASURES TAKEN, BED IN LOW POSITION, SIDE RAILS UP, CALL LIGHT WITHIN REACH.
--- NOTE | 2020-03-30 19:15 | NUR ---
ICU/NEIGHBORHOOD WORKER RECEIVED REPORT FROM DAY NURSE. SEE FLOWSHEET FOR ASSESSMENT,THERE ARE MANY SKIN ISSUES THAT ARE ADDRESSED ON FLOWSHEET ALONG WITH INTERVENTIONS. PT IS ALERT X3-4. PT IS 2 LITERS VIA N/C, TOLERATING THIS WELL WITH SATURATION AT 100%. PT WAS TURN AND REPOSITION FOR COMFORT AND CARE. WILL CONTINUE TO MONITOR THIS PT, NO ACUTE DISTRESS SEEN AT THIS TIME. AT THIS TIME LEVO HAS BEEN OFF SINCE 1500, WILL CONTINUE TO MONITOR THIS PT AND HIS BLOOD PRESSURE. Addendum: 03/30/20 at 1958 by ELI FERRARO LVN WRONG PT!!!!
--- NOTE | 2020-03-30 19:50 | NUR ---
ICU/TECHNOLOGY SPECIALIST RECEIVED REPORT FROM DAY NURSE. SEE FLOWSHEET FOR ASSESSMENT,THERE ARE A FEW SKIN ISSUES THAT ARE ADDRESSED ON THE FLOWSHEET ALONG WITH THE INTERVENTIONS. PT HAS TRACH WHICH SHE IS TOLERATING CURRENT VENT SETTINGS WITH SATURATION AT 100%. PT WAS TURN AND REPOSITION FOR COMFORT AND CARE. WILL CONTINUE TO MONITOR THIS PT, NO ACUTE DISTRESS SEEN AT THIS TIME. PT IS HAS G-TUBE FEEDING AT 60ML/HR TOLERATING CURRENT RATE. PT APPEARS TO BE ALERT WHEN I WALK INTO ROOM.
[2020-03-30] MEDS: ENOXAPARIN SODIUM 40 MG/0.4 ML DISP.SYRIN SQ SCH (21:00)
--- NOTE | 2020-03-30 22:00 | NUR ---
ICU/ANIMAL HUSBANDMAN PT WAS GIVEN ORAL CARE, THEN PROVIDED PM CARE, WHICH SHE TOLERATED WELL. PT REMAINS ON CURRENT VENT SETTING, WITH SATURATION AT 100%. PT WAS TURNED AND REPOSITIONED FOR COMFORT AND CARE. CALL LIGHT WITHIN REACH, NO ACUTE DISTRESS SEEN. WILL CONTINUE TO MONITOR THIS PT.
[2020-03-30] MEDS: ATORVASTATIN 40 MG TABLET GT SCH (22:09)
[2020-03-30] MEDS: QUETIAPINE FUMARATE 25 MG TABLET GT SCH (22:10)
--- NOTE | 2020-03-30 23:23 | NUR ---
ICU/HOTEL RECREATIONAL FACILITIES MANAGER CALL WAS PLACED TO THE DR DIRECTOR OF ENROLLMENT ABOUT THE 2100 DOSE OF LOVENOX SQ. YESTERDAY IT WAS HELD FOR LOW H/H. TODAY THE ON-CALL SAID TO HOLD THE LOVENOX AGAIN DUE TO THE LOW H/H 11/26. WILL CONTINUE TO MONITOR THIS PT'S LABS.
[2020-03-31] VITALS (22 sets, daily range): BP systolic 93–115; BP diastolic 48–59
[2020-03-31] MEDS: ALBUTEROL FS 2.5 MG/3 ML VIAL.NEB NEB SCH ×4 (01:45→19:49)
[2020-03-31] MEDS: IPRATROPIUM NEB FS 0.5 MG/2.5 ML AMPUL.NEB NEB SCH ×4 (01:45→19:49)
--- NOTE | 2020-03-31 02:30 | NUR ---
ICU/SACK KEEPER PT WAS GIVEN ORAL CARE, THEN PROVIDED AM CARE, WHICH SHE TOLERATED WELL. PT REMAINS ON CURRENT VENT SETTING, WITH SATURATION AT 100%. PT WAS TURNED AND REPOSITIONED FOR COMFORT AND CARE. CALL LIGHT WITHIN REACH, NO ACUTE DISTRESS SEEN. WILL CONTINUE TO MONITOR THIS PT.
--- NOTE | 2020-03-31 04:00 | NUR ---
ICU/CONCRETE MIXER TRUCK DRIVER AM LABS WERE DONE, AWAIT FOR ANY CRITICAL LAB VALUES.
[2020-03-31 04:29] LABS: BASOPHILS % (AUTO) 0.3 % (0.0-2.0); EOSINOPHILS % (AUTO) 4.3 % (0.0-6.0); HEMATOCRIT 25 % (33-45); HEMOGLOBIN 7.8 g/dL (11.5-14.8); LYMPHOCYTES # (AUTO) 2.6 /CMM (0.8-4.8); LYMPHOCYTES % (AUTO) 26.4 % (20.0-44.0); MEAN CORPUSCULAR HGB CONC 32 g/dl (31.0-36.0); MEAN CORPUSCULAR VOLUME 88 fL (82-100); MONOCYTES # (AUTO) 0.7 /CMM (0.1-1.30); MONOCYTES % (AUTO) 6.6 % (2.0-12.0); NEUTROPHILS # (AUTO) 6.2 /CMM (1.8-8.9); NEUTROPHILS % (AUTO) 62.4 % (43.0-81.0); PLATELET COUNT (AUTO) 265 /CMM (150-450); RED BLOOD CELL COUNT(AUTO) 2.81 MIL/uL (4.0-5.2)
[2020-03-31 04:38] LABS: CALCIUM, SERUM 8.3 mg/dL (8.5-10.1); CREATININE 1.2 mg/dL (0.6-1.3); MAGNESIUM 2.2 mg/dL (1.8-2.4); PHOSPHORUS 3.3 mg/dL (2.5-4.9); POTASSIUM 4.2 mmol/L (3.5-5.1)
[2020-03-31] MEDS: ropiniROLE 0.5 MG TABLET GT SCH ×3 (05:43→21:23)
[2020-03-31] MEDS: BLOOD SUGAR DIAGNOSTIC 1 EACH STRIP IN SCH ×4 (05:44→23:42)
[2020-03-31] MEDS: GLUCERNA 1.2 1,000 ML BOTTLE NG PRN ×2 (05:44→21:42)
[2020-03-31] MEDS: INSULIN REGULAR, HUMAN 100 UNIT/ML 3 ML VIAL SQ PRN ×4 (05:45→23:45)
--- NOTE | 2020-03-31 06:00 | NUR ---
ICU/CHUCKING LATHE OPERATOR OBI JACINTO FROM [facility] CALLED WITH CRITICAL RESULT FOR WORSING PULOMARY CONGESTION. CALLED THE CONSTRUCTION TECHNOLOGY INSTRUCTOR MD, WHO THEN SAID OK, NO NEW ORDERS.
--- NOTE | 2020-03-31 08:00 | NUR ---
ICU/RN INITIAL NOTES,AM RECEIVED REPORT FROM NIGHT NURSE. PT OPENS EYES, FOLLOWS COMMANDS. PT TRACH TO VENT WITH SETTINGS ORDERED. SINUS ON TELE. WOLFE CATH ON PLACE, DRAINING YELLOW URINE. RECTAL TUBE IN PLACE, SOME LOOSE STOOL NOTED WILL MONITOR. ALL NEEDS WILL BE ATTENDED TO, SAFETY MEASURES TAKEN, BED IN LOW POSITION, SIDE RAILS UP, CALL LIGHT WITHIN REACH. WILL CONTINUE CARE.
[2020-03-31] MEDS: FENOFIBRATE NANOCRYS (145 MG) 145 MG TABLET GT SCH (09:02)
[2020-03-31] MEDS: ASPIRIN 81 MG TAB.CHEW GT SCH (09:02)
[2020-03-31] MEDS: FERROUS SULFATE UDC 300 MG/5 ML UDC GT SCH ×2 (09:02→17:37)
[2020-03-31] MEDS: LEVETIRACETAM SOL (5 ML) 100 MG/ML UDC GT SCH ×2 (09:02→17:37)
[2020-03-31] MEDS: MULTIVIT W/MINERALS 1 TAB TABLET GT SCH (09:02)
[2020-03-31] MEDS: PANTOPRAZOLE 40 MG/PACK PACK GT SCH (09:02)
[2020-03-31] MEDS: GABAPENTIN 300 MG CAPSULE GT SCH ×2 (09:02→17:38)
[2020-03-31] MEDS: DAKINS QUARTER STRENGTH (0.125%) 480 ML BOTTLE TOP SCH ×2 (09:03→09:04)
[2020-03-31] MEDS: THERAHONEY GEL 1.5 OZ TUBE TP SCH (09:03)
[2020-03-31] MEDS: LEVOFLOXACIN 750 MG /D5W 150ML 750 MG in PREMIX 1 EA IV SCH (15:45)
--- NOTE | 2020-03-31 17:30 | NUR ---
ICU/RN:EEG DONE, PT VSS. WILL CONTINUE TO MONITOR.
--- NOTE | 2020-03-31 18:45 | NUR ---
ICU/RN: ENDING NOTES,AM REPORT WILL BE ENDORSED TO NIGHT NURSE FOR JAMES. PT OPENS EYES, FOLLOWS COMMANDS. TRACH TO VENT WITH SETTINGS ORDERED. GTUBE FEEDING INFUSING, TOLERATING WELL. RECTAL TUBE IN PLACE, 2 LOOSE STOOLS DOCUMENTED, WILL ENDORSE TO ONCOMING NURSE FOR CDIFF PROTOCOL. EEG DONE, RESULTS PENDING. ALL NEEDS ATTENDED TO, SAFETY MEASURES TAKEN, BED IN LOW POSITION, SIDE RAILS UP, CALL LIGHT WITHIN REACH. WILL CONTINUE CARE. CASE MANAGMENT WORKING ON TRANSFER TO HIGHER LEVEL OF CARE, AIMING FOR FRIDAY.
--- NOTE | 2020-03-31 19:10 | NUR ---
MILLER ROD MILL OPENING NOTES: Rec'd pt in bed, resting, easily arousable. A&ox1-2, mouthing words. On trach and mechanical ventilation, tolerating settings well. No SOB or resp distress noted. SR on tele monitor. AIDAN PICC line patent and flushed. Dressing c/d/i. GT site patent and flushed w/ Glucerna infusing at 60ml/hr. Location verified. Mendez cath patent and draining urine via gravity. Rectal tube in place. Safety measures in place. Will continue to monitor.
--- NOTE | 2020-03-31 20:42 | NUR ---
TRUCK RENTAL SERVICE ATTENDANT NOTE: Transferred to 3w rm 304 via acls protocols. Gave bedside report to EDYTA Tejeda for JAMES.
--- NOTE | 2020-03-31 20:43 | NUR ---
PT TRANSFERRED T0 304.
--- NOTE | 2020-03-31 21:00 | NUR ---
TELE/ RN OPENING NOTES PATIENT TRANSFERRED FROM ICU TO ROOM 304. RECEIVED REPORT FROM EDYTA MARTINES. DURING TRANSPORT PATIENT SUSTAINED NO INJURIES. PATIENT IS ALERT AND ORIENTED X 1-2, CAN MOUTH WORDS, OPENS EYES. PATIENT HAS TRACH PORTEX #8, VENT SETTING AC 16 TV 400 FIO2 40% PEEP 5, TOLERATING WELL. PATIENT HAS PEG IN PLACE NO RESIDUAL, RUNNING GLUCERNA AT 60 CC HR. RECTAL TUBE IN PLACE, WOLFE CATH IN PLACE BOTH DRAINING. PATIENT HAS AIDAN PICC LINE INTACT. V/S ARE WITHIN NORMAL LIMITS. PATIENT IN NO SIGNS OF DISTRESS. PATIENT SKIN ASSESSMENT DONE, REDNESS AND BLISTERS ON BACK SIDE. SAFETY MEASURES ARE IN PLACE, BED IS LOCKED AND PLACED IN THE LOW POSITION, SIDE RAILS UP X 3. CALL LIGHT IS WITHIN REACH. WILL CONTINUE TO MONITOR THROUGH OUT SHIFT.
[2020-03-31] MEDS: ATORVASTATIN 40 MG TABLET GT SCH (21:23)
[2020-03-31] MEDS: QUETIAPINE FUMARATE 25 MG TABLET GT SCH (21:23)
[2020-03-31] MEDS: ENOXAPARIN SODIUM 40 MG/0.4 ML DISP.SYRIN SQ SCH (21:25)
[2020-04-01] VITALS: BP 98/51
[2020-04-01] MEDS: ALBUTEROL FS 2.5 MG/3 ML VIAL.NEB NEB SCH ×4 (01:24→19:20)
[2020-04-01] MEDS: IPRATROPIUM NEB FS 0.5 MG/2.5 ML AMPUL.NEB NEB SCH ×4 (01:24→19:20)
[2020-04-01 04:00] VITALS: BP 107/58
[2020-04-01] MEDS: ropiniROLE 0.5 MG TABLET GT SCH ×3 (05:06→21:37)
[2020-04-01 06:09] LABS: BASOPHILS % (AUTO) 0.2 % (0.0-2.0); EOSINOPHILS % (AUTO) 5.4 % (0.0-6.0); HEMATOCRIT 25 % (33-45); LYMPHOCYTES # (AUTO) 2.3 /CMM (0.8-4.8); LYMPHOCYTES % (AUTO) 25.4 % (20.0-44.0); MEAN CORPUSCULAR HGB CONC 32 g/dl (31.0-36.0); MEAN CORPUSCULAR VOLUME 88 fL (82-100); MONOCYTES # (AUTO) 0.6 /CMM (0.1-1.30); MONOCYTES % (AUTO) 6.3 % (2.0-12.0); NEUTROPHILS # (AUTO) 5.6 /CMM (1.8-8.9); NEUTROPHILS % (AUTO) 62.7 % (43.0-81.0); PLATELET COUNT (AUTO) 257 /CMM (150-450); RED BLOOD CELL COUNT(AUTO) 2.88 MIL/uL (4.0-5.2)
[2020-04-01 06:17] LABS: CALCIUM, SERUM 9.1 mg/dL (8.5-10.1); CREATININE 1.2 mg/dL (0.6-1.3); MAGNESIUM 2.3 mg/dL (1.8-2.4); PHOSPHORUS 3.7 mg/dL (2.5-4.9); POTASSIUM 4.4 mmol/L (3.5-5.1)
--- NOTE | 2020-04-01 06:40 | NUR ---
TELE/RN CLOSING NOTES PATIENT IS ALERT AND ORIENTED X 1, CAN MOUTH WORDS, OPENS EYES. PATIENT HAS TRACH PORTEX #8, VENT SETTING AC 16 TV 400 FIO2 40% PEEP 5, TOLERATING WELL. TELE READING SR 94. PATIENT HAS PEG IN PLACE NO RESIDUAL, RUNNING GLUCERNA AT 60 CC HR. RECTAL TUBE IN PLACE OUTPUT 50CC, WOLFE CATH OUTPUT 400CC, IN PLACE BOTH DRAINING. PATIENT HAS AIDAN PICC LINE INTACT.PATIENT IN NO SIGNS OF DISTRESS. ALL NEEDS HAVE BEEN MET DURING SHIFT. SAFETY MEASURES ARE IN PLACE, BED IS LOCKED AND PLACED IN THE LOW POSITION, SIDE RAILS UP X 3. CALL LIGHT IS WITHIN REACH. WILL ENDORSE CARE TO DAY SHIFT.
[2020-04-01] MEDS: BLOOD SUGAR DIAGNOSTIC 1 EACH STRIP IN SCH ×3 (06:42→17:13)
[2020-04-01] MEDS: INSULIN REGULAR, HUMAN 100 UNIT/ML 3 ML VIAL SQ PRN ×3 (06:45→17:14)
--- NOTE | 2020-04-01 07:00 | NUR ---
PC NETWORK TECHNICIAN OPENING NOTES RECEIVED PT RESTING IN BED AT THIS TIME. PT AOX1. PT ABLE TO MOUTH WORDS. NO SOB NOTED, NO S/S OF ANY ACUTE DISTRESS NOTED. PT ON MECHANICAL VENT. VENT SETTINGS READ PORTEX #8, AC 16, TV 400, FIO2 40%, PEEP 5. PT ON EXTERNAL ELECTRONIC ASSEMBLER READING SR IN THE 70S. NO C/O PAIN AT THIS TIME. RESPIRATIONS ARE EVEN AND UNLABORED. PT NOTED ON 4LPM O2 VIA NC. AIDAN PICC LINE NOTED, INTACT, PATENT AND FLUSHING WELL. G-TUBE IN PLACE WITH NO RESIDUAL NOTED. WOLFE CATHETER IN PLACE, DRAINING TO GRAVITY, CLEAR YELLOW URINE OUTPUT. RECTAL TUBE NOTED WITH SOFT BROWN BM. ASPIRATION AND SAFETY PRECAUTION IN PLACE AND MAINTAINED AT ALL TIMES. BED IN LOWEST LOCKED POSITION, HOB ELEVATED, SIDE RAILS UP X 2, CALL LIGHT AND TABLE WITHIN REACH. WILL CONTINUE TO MONITOR. Addendum: 04/01/20 at 1331 by NICK MARIN RN PC NETWORK TECHNICIAN OPENING NOTES RECEIVED PT RESTING IN BED AT THIS TIME. PT AOX1. PT ABLE TO MOUTH WORDS. NO SOB NOTED, NO S/S OF ANY ACUTE DISTRESS NOTED. PT ON MECHANICAL VENT. VENT SETTINGS READ PORTEX #8, AC 16, TV 400, FIO2 40%, PEEP 5. PT ON EXTERNAL ELECTRONIC ASSEMBLER READING SR IN THE 70S. NO C/O PAIN AT THIS TIME. RESPIRATIONS ARE EVEN AND UNLABORED. PICC LINE NOTED, INTACT, PATENT AND FLUSHING WELL. G-TUBE IN PLACE WITH NO RESIDUAL NOTED. WOLFE CATHETER IN PLACE, DRAINING TO GRAVITY, CLEAR YELLOW URINE OUTPUT. RECTAL TUBE NOTED WITH SOFT BROWN BM. ASPIRATION AND SAFETY PRECAUTION IN PLACE AND MAINTAINED AT ALL TIMES. BED IN LOWEST LOCKED POSITION, HOB ELEVATED, SIDE RAILS UP X 2, CALL LIGHT AND TABLE WITHIN REACH. WILL CONTINUE TO MONITOR.
[2020-04-01 08:00] VITALS: BP 107/60
[2020-04-01] MEDS: PANTOPRAZOLE 40 MG/PACK PACK GT SCH (09:22)
[2020-04-01] MEDS: GABAPENTIN 300 MG CAPSULE GT SCH ×2 (09:22→16:32)
[2020-04-01] MEDS: MULTIVIT W/MINERALS 1 TAB TABLET GT SCH (09:22)
[2020-04-01] MEDS: FENOFIBRATE NANOCRYS (145 MG) 145 MG TABLET GT SCH (09:22)
[2020-04-01] MEDS: LEVETIRACETAM SOL (5 ML) 100 MG/ML UDC GT SCH ×2 (09:22→16:32)
[2020-04-01] MEDS: FERROUS SULFATE UDC 300 MG/5 ML UDC GT SCH ×2 (09:22→16:32)
[2020-04-01] MEDS: THERAHONEY GEL 1.5 OZ TUBE TP SCH (09:23)
[2020-04-01] MEDS: DAKINS QUARTER STRENGTH (0.125%) 480 ML BOTTLE TOP SCH ×2 (09:23→09:24)
[2020-04-01] MEDS: METOPROLOL TARTRATE 25 MG TABLET PO SCH ×2 (09:27→21:39)
[2020-04-01] MEDS: ASPIRIN 81 MG TAB.CHEW GT SCH (09:28)
[2020-04-01 12:00] VITALS: BP 100/62
--- NOTE | 2020-04-01 12:40 | NUR ---
PT SWAB IN BOTH NARES FOR COVID. PT TOLERATED WELL. WILL CONTINUE TO MONITOR
[2020-04-01] MEDS: GLUCERNA 1.2 1,000 ML BOTTLE NG PRN (15:43)
[2020-04-01 16:00] VITALS: BP 96/54
[2020-04-01] MEDS: LEVOFLOXACIN 750 MG /D5W 150ML 750 MG in PREMIX 1 EA IV SCH (16:16)
--- NOTE | 2020-04-01 18:49 | NUR ---
SALES AND SERVICE TECHNICIAN CLOSING NOTES PT AWAKE IN BED AT THIS TIME. PT REMAINED STABLE THROUGHOUT SHIFT. ALL CARE, NEED, MEDICATIONS AND TREATMENT ADMINISTERED ANTICIPATED PER ORDER. PT KEPT CLEAN AND DRY. RECTAL TUBE MEASURED AND EMPTIED. TRACH TIE CHANGED AND TRACH CARE PROVIDED. PT SUCTIONED PRN. WOUND TREATMENT DONE. PT TOLERATED GTUBE FEEDING WITH NO RESIDUAL NOTED. WOLFE CATHETER CARE PROVIDED. PT REPOSITIONED Q2HRS AND PRN. ASPIRATION AND SAFETY PRECAUTION IN PLACE AND MAINTAINED AT ALL TIMES. BED IN LOWEST LOCKED POSITION, HOB ELEVATED, SIDE RAILS UP X 2, CALL LIGHT AND TABLE WITHIN REACH. WILL CONTINUE TO MONITOR.
--- NOTE | 2020-04-01 19:35 | NUR ---
rn notes received pt. awake on bed, non-verbal, vent dependent, f/c draining clear yellow urine, not in distress, _g-tube feeding ruuning well. no residual noted, rectal tube in place, no pain noted, bed in locked postion, siderailup2, continue to monitor
[2020-04-01 20:00] VITALS: BP 123/72
[2020-04-01] MEDS: QUETIAPINE FUMARATE 25 MG TABLET GT SCH (21:38)
[2020-04-01] MEDS: ATORVASTATIN 40 MG TABLET GT SCH (21:38)
[2020-04-01] MEDS: ENOXAPARIN SODIUM 40 MG/0.4 ML DISP.SYRIN SQ SCH (21:40)
[2020-04-02] VITALS (7 sets, daily range): BP systolic 91–112; BP diastolic 6–61
[2020-04-02] MEDS: BLOOD SUGAR DIAGNOSTIC 1 EACH STRIP IN SCH ×4 (00:02→18:32)
[2020-04-02] MEDS: INSULIN REGULAR, HUMAN 100 UNIT/ML 3 ML VIAL SQ PRN ×4 (00:09→18:31)
[2020-04-02] MEDS: ALBUTEROL FS 2.5 MG/3 ML VIAL.NEB NEB SCH ×4 (01:35→19:33)
[2020-04-02] MEDS: IPRATROPIUM NEB FS 0.5 MG/2.5 ML AMPUL.NEB NEB SCH ×4 (01:36→19:33)
--- NOTE | 2020-04-02 04:36 | NUR ---
RT Pt recv'd on AC settings with Portex Elba 8 trach. Trach patent and secured. Pt alert and communicative with no signs of respiratory distress or SOB throughout shift and suction done PRN. Spare trach and ambu bag at bedside with vent plugged into red outlet with alarms on and audible.
[2020-04-02] MEDS: ropiniROLE 0.5 MG TABLET GT SCH ×3 (04:47→21:14)
[2020-04-02] MEDS: GLUCERNA 1.2 1,000 ML BOTTLE NG PRN ×2 (05:37→22:35)
[2020-04-02 05:55] LABS: BASOPHILS % (AUTO) 0.4 % (0.0-2.0); EOSINOPHILS % (AUTO) 3.3 % (0.0-6.0); HEMATOCRIT 25 % (33-45); HEMOGLOBIN 8.3 g/dL (11.5-14.8); LYMPHOCYTES # (AUTO) 2.5 /CMM (0.8-4.8); LYMPHOCYTES % (AUTO) 23.6 % (20.0-44.0); MEAN CORPUSCULAR HGB CONC 33 g/dl (31.0-36.0); MEAN CORPUSCULAR VOLUME 87 fL (82-100); MONOCYTES # (AUTO) 0.5 /CMM (0.1-1.30); MONOCYTES % (AUTO) 5.1 % (2.0-12.0); NEUTROPHILS # (AUTO) 7.2 /CMM (1.8-8.9); NEUTROPHILS % (AUTO) 67.6 % (43.0-81.0); PLATELET COUNT (AUTO) 278 /CMM (150-450); RED BLOOD CELL COUNT(AUTO) 2.92 MIL/uL (4.0-5.2); WHITE BLOOD COUNT (AUTO) 10.6 K/uL (4.3-11.0)
[2020-04-02 06:08] LABS: CALCIUM, SERUM 8.9 mg/dL (8.5-10.1); CREATININE 1.3 mg/dL (0.6-1.3); MAGNESIUM 2.2 mg/dL (1.8-2.4); PHOSPHORUS 4.1 mg/dL (2.5-4.9); POTASSIUM 4.4 mmol/L (3.5-5.1)
--- NOTE | 2020-04-02 07:00 | NUR ---
RN NOTES AWAKE, NOT IN DISTRESS, NO PAIN NOTED, MORNING CARE RENDERED, RECTAL TUBE IN PLACE , F/C DRAINING CLEAR YELLOW URINE, SIDERAILSUPX2, BED IN LOCKED POSITION, PT. NEDS ATTENDED
[2020-04-02] MEDS: FERROUS SULFATE UDC 300 MG/5 ML UDC GT SCH ×2 (09:59→18:31)
[2020-04-02] MEDS: MULTIVIT W/MINERALS 1 TAB TABLET GT SCH (09:59)
[2020-04-02] MEDS: ASPIRIN 81 MG TAB.CHEW GT SCH (10:00)
[2020-04-02] MEDS: FENOFIBRATE NANOCRYS (145 MG) 145 MG TABLET GT SCH (10:00)
[2020-04-02] MEDS: LEVETIRACETAM SOL (5 ML) 100 MG/ML UDC GT SCH ×2 (10:00→18:31)
[2020-04-02] MEDS: PANTOPRAZOLE 40 MG/PACK PACK GT SCH (10:00)
[2020-04-02] MEDS: GABAPENTIN 300 MG CAPSULE GT SCH ×2 (10:00→18:31)
[2020-04-02] MEDS: METOPROLOL TARTRATE 25 MG TABLET PO SCH ×3 (10:03→18:32)
[2020-04-02] MEDS: DAKINS QUARTER STRENGTH (0.125%) 480 ML BOTTLE TOP SCH ×2 (10:04)
[2020-04-02] MEDS: THERAHONEY GEL 1.5 OZ TUBE TP SCH (10:05)
[2020-04-02] MEDS: LEVOFLOXACIN 750 MG /D5W 150ML 750 MG in PREMIX 1 EA IV SCH (15:42)
--- NOTE | 2020-04-02 19:32 | NUR ---
HORSERADISH GRINDER NOTES PATIENT IN BED RESTING. PATIENT VENT DEPENDENT, VENT SETTINGS NOTES. ALL DUE MEDICATIONS ADMINISTERED. ALL NEEDS MET. SAFETY MEASURES IN PLACE. ENDORSED CARE TO PM SHIFT.
--- NOTE | 2020-04-02 21:00 | NUR ---
rn notes: pt for procedure at 12noon tomorrow in [facility], PCI revascularization, pt has schedule amhamed wilson, notified epic md blood donor unit assistant per md okay to administer at this time. order read back verified and carried out.
[2020-04-02] MEDS: ATORVASTATIN 40 MG TABLET GT SCH (21:14)
[2020-04-02] MEDS: ACETAMINOPHEN 650 MG/20.3 ML UDC NG PRN (21:14)
[2020-04-02] MEDS: QUETIAPINE FUMARATE 25 MG TABLET GT SCH (21:14)
[2020-04-02] MEDS: ENOXAPARIN SODIUM 40 MG/0.4 ML DISP.SYRIN SQ SCH (21:15)
--- NOTE | 2020-04-02 23:32 | NUR ---
RN NOTES: RECEIVED REPORT FROM DENISSE LAN AT 1905. PT MECH VENT TRACHE DEPENDENT, AMBU BAG AT BED SIDE, ALL CLINICAL ALARMS CHECKED AND AUDIBLE. AIDAN PICC LINE TLC PATENT AND FLUSHING WELL, GOOD BLOOD RETURN NOTED, ABLE TO FLUSH WELL WITH NS. PT RECEIVED WITH WOLFE CATHETER DRAINING INTO YELLOW COLORED URINE, TUBING FREE OF KINKS. AL;SO HAS RECTAL TUBE IN PLACED. PT CONNECTED TO CONTINUOUS PULSE OXIMETRY SPO2 100%. CURRENTLY SINUS TACH HR 101. 2000: PT HAS GTUBE IN PLACED, ABDOMEN SOFT TO TOUCH WITH ACTIVE BOWEL SOUND HEARD UPON AUSCULTATION. NO RESIDUAL OBTAINED, GTUBE ABLE TO FLUSH WELL WITH WATER. PT ON GLUCERNA 1.2 AT 60 ML/HR. 2100: PRN TYLENOL ADMINISTERED FOR T 99.3(ORALLY). ASSISTED BREEDING TECHNICIAN IN PROVIDING COLD BATH TO PT. COMPLETE LINEN CHANGED PROVIDED. WOUND CARE DONE ORDERED. 22:40 LATEST TEMP 98.5 2300: NEW BAG OF FEEDING WAS ADMINISTERED SAFETY PRECAUTIONS FOR FALL INITIATED, CALL LIGHT IN REACH, WILL CONTINUE MONITORING PT.
[2020-04-03] VITALS (8 sets, daily range): BP systolic 95–142; BP diastolic 52–60
--- NOTE | 2020-04-03 | NUR ---
rn notes/npo: pt for procedure in am pci in [facility], placed on npo at this time in preparation for procedure at 12noon
[2020-04-03] MEDS: BLOOD SUGAR DIAGNOSTIC 1 EACH STRIP IN SCH ×5 (00:23→23:48)
[2020-04-03] MEDS: INSULIN REGULAR, HUMAN 100 UNIT/ML 3 ML VIAL SQ PRN ×2 (00:27→05:25)
[2020-04-03] MEDS: ALBUTEROL FS 2.5 MG/3 ML VIAL.NEB NEB SCH ×4 (01:35→20:08)
[2020-04-03] MEDS: IPRATROPIUM NEB FS 0.5 MG/2.5 ML AMPUL.NEB NEB SCH ×4 (01:35→20:08)
[2020-04-03] MEDS: ropiniROLE 0.5 MG TABLET GT SCH ×3 (04:50→20:04)
--- NOTE | 2020-04-03 04:50 | NUR ---
rn notes/non admin of scehdule meds for 0500am: pt npo for surgery at 12noon in [facility], pt on npo. medication for 0500am such as requip, lopressor not administered.
[2020-04-03] MEDS: METOPROLOL TARTRATE 25 MG TABLET PO SCH ×4 (05:24→17:03)
--- NOTE | 2020-04-03 05:26 | NUR ---
accu check 175: blood sugar check result is 175, no insulin coverage given as pt currently on npo for revascularization procedure PCI in [facility] today at 12noon.
--- NOTE | 2020-04-03 05:36 | NUR ---
rn notes: received call from [facility] Patch Sander Samanta Henson, she given out room number for the pt. Pt will be going to Room 202/ICU, call for report at [phone]. Per House Sup Samanta Henson to have day nurse to call for report when pt is being bulk picker. charge operator valery made aware.
[2020-04-03 06:12] LABS: BASOPHILS % (AUTO) 0.4 % (0.0-2.0); EOSINOPHILS % (AUTO) 4.6 % (0.0-6.0); HEMATOCRIT 27 % (33-45); HEMOGLOBIN 8.4 g/dL (11.5-14.8); LYMPHOCYTES # (AUTO) 2.8 /CMM (0.8-4.8); LYMPHOCYTES % (AUTO) 25.6 % (20.0-44.0); MEAN CORPUSCULAR HGB CONC 31 g/dl (31.0-36.0); MEAN CORPUSCULAR VOLUME 88 fL (82-100); MONOCYTES # (AUTO) 0.7 /CMM (0.1-1.30); MONOCYTES % (AUTO) 6.2 % (2.0-12.0); NEUTROPHILS # (AUTO) 6.8 /CMM (1.8-8.9); NEUTROPHILS % (AUTO) 63.2 % (43.0-81.0); PLATELET COUNT (AUTO) 278 /CMM (150-450); RED BLOOD CELL COUNT(AUTO) 3.07 MIL/uL (4.0-5.2); WHITE BLOOD COUNT (AUTO) 10.8 K/uL (4.3-11.0)
[2020-04-03 06:27] LABS: CALCIUM, SERUM 8.7 mg/dL (8.5-10.1); CREATININE 1.3 mg/dL (0.6-1.3); MAGNESIUM 2.4 mg/dL (1.8-2.4); PHOSPHORUS 4.4 mg/dL (2.5-4.9); POTASSIUM 4.5 mmol/L (3.5-5.1)
--- NOTE | 2020-04-03 07:15 | NUR ---
end of shift report: pt remains on npo for procedure at 12noon at [facility] (PCI) according to notes of MD. pt tolerated [facility] vent setting well. remains connected to pulse oximetry monitoring. peg in placed, patent and flushing well, no residual obtained, able to flush well with water. reinier picc line remains patent and flushing well, on hl, noted with brisjk blood return. payne catheter remains in placed, rectal tube in placed. wound care and am care provided. pt for transfer to [facility] per family request as pt will being undergoing surgery/procedure. Pt will be going to room 202 ICU, and report to be given when patient is being steel pickler per instruction from [facility] laundry housekeeper Samanta Henson. Pt will be steel pickler at 0830am via [facility]. Pt's daughter, Marjorie Ordaz ([phone]) made aware of this transfer. All transfer and DC paperworks completed, pt has no belongings. Copies made for [facility] hospital, and another copto remains in pt's chart in [facility]. Med recon and list of all medication pt's received attached. Safety precautions for fall initiated, call light in reach, will endorse to day rn for continuity of care.
--- NOTE | 2020-04-03 07:38 | NUR ---
LIBRARY TECHNICIAN OPENING NOTES RECEIVED PATIENT IN BED, ASLEEP. PATIENT ON VENT SETTINGS TOLERATING WELL. PATIENT IS TO BE DISCHARGED FOR TRANSFER TO [facility]. ALL DOCUMENTS READY BY THE TEMPLER HEAD NURSE. WAITING FOR AMBULANCE TO PLATING EQUIPMENT TENDER THE PATIENT AND TO GIVE REPORT TO ICU NURSE AT [facility].
[2020-04-03] MEDS: GABAPENTIN 300 MG CAPSULE GT SCH ×2 (08:02→17:00)
[2020-04-03] MEDS: ASPIRIN 81 MG TAB.CHEW GT SCH (08:02)
[2020-04-03] MEDS: LEVETIRACETAM SOL (5 ML) 100 MG/ML UDC GT SCH ×2 (08:02→17:00)
[2020-04-03] MEDS: FERROUS SULFATE UDC 300 MG/5 ML UDC GT SCH ×2 (08:02→17:00)
[2020-04-03] MEDS: PANTOPRAZOLE 40 MG/PACK PACK GT SCH (08:03)
[2020-04-03] MEDS: MULTIVIT W/MINERALS 1 TAB TABLET GT SCH (08:03)
[2020-04-03] MEDS: FENOFIBRATE NANOCRYS (145 MG) 145 MG TABLET GT SCH (08:03)
[2020-04-03] MEDS: THERAHONEY GEL 1.5 OZ TUBE TP SCH (08:04)
[2020-04-03] MEDS: DAKINS QUARTER STRENGTH (0.125%) 480 ML BOTTLE TOP SCH ×2 (08:04→08:06)
[2020-04-03 11:41] LABS: BAND % (MANUAL) 4 % (0.0-5.0); LYMPHOCYTES % (MANUAL) 20 % (16-48); METAMYELOCYTES % 1 % (0-0); MONOCYTES % (MANUAL) 12 % (0-11.0); MYELOCYTES % 2 % (0-0); NEUTROPHILS % (MANUAL) 61 (42-76)
[2020-04-03] MEDS: LEVOFLOXACIN 750 MG /D5W 150ML 750 MG in PREMIX 1 EA IV SCH (14:28)
--- NOTE | 2020-04-03 18:57 | NUR ---
BONE COOKING OPERATOR NOTES PATIENT MEDICALLY STABLE AND LEAVING AMA. AMA FORM SIGNED; FAMILY AWARE AND READY TO GENERAL OPHTHALMOLOGIST THE PATIENT. MD IS ALSO AWARE.
--- NOTE | 2020-04-03 18:59 | NUR ---
COMMERCIAL CREDIT LEAD CLOSING NOTES PATIENT REMAINS IN BED, AWAKE, A/O X1, OPENS EYES AND ABLE TO NOD YES OR NO. PATIENT ON VENT SETTINGS TOLERATING WELL AND SATURATING 99-100%. NO S/S OF PAIN SUCH MOANING, FACIAL GRIMACING OR MOANING. AIDAN PICC LINE REMAINS INTACT, PATENT. WOLFE CATHETER IN PLACE WITH A DAILY OUTPUT OF 410 MLS. RECTAL TUBE IN PLACE WELL WITH AN OUTPUT OF 500 MLS. UNFORTUNATELY PATIENT WAS NOT TRANSFERRED TO [facility] TODAY AND IS STILL AWAITING TO BE TRANSFERRED FOR HER PROCEDURE. ALL D/C DOCUMENTS ARE READY. SAFETY PRECAUTIONS IN PLACE; BED IN LOW POSITION AND LOCKED, RAILS UP X2, CALL LIGHT WITHIN REACH. WILL ENDORSE TO SMOKEHOUSE WORKER NURSE.
--- NOTE | 2020-04-03 19:45 | NUR ---
BALANCE SCREWHEAD POLISHER OPENING NOTES RECEIVED PATIENT RESTING IN BED COMFORTABLY; A/OX1, OPENS EYES; PATIENT ABLE TO MOUTH WORDS; BREATHING EVEN AND UNLABORED; TOLERATING CURRENT VENT SETTINGS WELL; NO SOB NOTED; PER AM SHIFT, PATIENT IS AWAITING SKIN CARE CONSULTANT TO BE TRANSFERRED TO [facility] FOR PROCEDURE; PATIENT HAS NOT BEEN PICKED UP D/T SHORT STAFFING IN [facility] AND NO AVAILABLE NURSE TO CONT PLAN OF CARE FOR PATIENT; TELE MONITOR READS SINUS RHYTHM 95BPM; G TUBE IN PLACE BUT HELD D/T NPO STATUS AND SURGERY; WOLFE CATH IN PLACE WITH YELLOW OUTPUT; RECTAL TUBE IN PLACE; AIDAN PICC LINE INTACT AND PATENT; SAFETY PRECAUTIONS IMPLEMENTED; BED LOCKED IN LOW POSITION; SIDE RAILSX2; CALL LIGHT WITHIN REACH; WILL CONT TO MONITOR
[2020-04-03] MEDS: ENOXAPARIN SODIUM 40 MG/0.4 ML DISP.SYRIN SQ SCH (20:04)
[2020-04-03] MEDS: ATORVASTATIN 40 MG TABLET GT SCH (22:00)
[2020-04-03] MEDS: QUETIAPINE FUMARATE 25 MG TABLET GT SCH (22:00)
--- NOTE | 2020-04-03 22:00 | NUR ---
SOIL SCIENCE TEACHER NOTES NO INSULIN COVERAGE FOR BS OF 161, PATIENT IS NPO AND CURRENTLY NOT RECEIVING GTUBE FEEDING D/T SCHEDULED PROCEDURE; WILL CONT TO MONITOR
[2020-04-04] VITALS: BP 104/60
[2020-04-04] MEDS: ALBUTEROL FS 2.5 MG/3 ML VIAL.NEB NEB SCH ×4 (00:59→19:38)
[2020-04-04] MEDS: IPRATROPIUM NEB FS 0.5 MG/2.5 ML AMPUL.NEB NEB SCH ×4 (00:59→19:38)
[2020-04-04] MEDS: LORAZEPAM INJ 2 MG/ML VIAL IV PRN ×2 (01:00→11:50)
--- NOTE | 2020-04-04 01:05 | NUR ---
ENTRY LEVEL TRUCK DRIVER NOTES PATIENT IN DISTRESS, HR ELEVATED TO 120S, PATIENT MOUTHED "I CANNOT BREATHE"; RT AT BEDSIDE FOR BREATHING TREATMENT; RR 27; ATIVAN GIVEN PER MD ORDER; CHARGE NURSE AWARE; WILL CONT TO MONITOR TELE MONITOR READS SINUS TACHY 120S
[2020-04-04 04:00] VITALS: BP 140/79
[2020-04-04] MEDS: ropiniROLE 0.5 MG TABLET GT SCH ×3 (04:00→21:07)
--- NOTE | 2020-04-04 04:58 | NUR ---
SOCIAL MEDIA MARKETING SPECIALIST NOTES PATIENT SPO2 85 - 88% ON 40% O2; RT AT BEDSIDE, INCREASED O2 TO 45%, PATIENT TOLERATING WELL; SATTING 94%, AWAITING SCHEDULED CXR, WILL CONT TO MONITOR
--- NOTE | 2020-04-04 05:21 | NUR ---
DIGITAL PRODUCTION OPERATOR NOTES ACCU CHECK 242, PATIENT HAS BEEN NPO D/T SURGICAL PROCEDURE; NO GTUBE FEEDING, NO IV FLUIDS; CHARGE NURSE AWARE; MD MADE AWARE; AWAITING MD ORDERS FOR IV D5 AND ORDERS FOR NPO SLIDING SCALE IN ORDER TO PROVIDE COVERAGE; WILL CONT TO MONITOR
[2020-04-04] MEDS: BLOOD SUGAR DIAGNOSTIC 1 EACH STRIP IN SCH ×4 (05:23→23:07)
[2020-04-04] MEDS: METOPROLOL TARTRATE 25 MG TABLET PO SCH ×5 (05:31→23:20)
--- NOTE | 2020-04-04 05:52 | NUR ---
PRIZER HAND NOTES PER STEPHEN STEPHEN; FOLLOW UP WITH DAY SHIFT; CHARGE NURSE AWARE; NO COVERAGE GIVEN; WILL INFORM DAY SHIFT
--- NOTE | 2020-04-04 06:24 | NUR ---
BUSINESS SERVICES INTERN CLOSING NOTES PATIENT RESTING IN BED COMFORTABLY; AWAKE, OPENS EYES; PATIENT ABLE TO MOUTH WORDS; PATIENT TOLERATING VENT SETTINGS, NO CHANGES IN VENT SETTINGS; NO SOB NOTED; NO DISTRESS NOTED; BREATHING EVEN AND UNLABORED; TELE MONITOR SHOWS SINUS RHYTHM - SINUS TACHY; G TUBE HELD D/T POSSIBLE SURGERY IN [facility]; NPO STATUS MAINTAINED; AIDAN PICC LINE INTACT AND PATENT, FLUSHING WELL; WOLFE IN PLACE, WITH YELLOW 300C OUTPUT; RECTAL TUBE IN PLACE WITH 500CC OUTPUT;, ALL NEEDS RENDERED; SAFETY PRECAUTIONS IMPLEMENTED; BED LOCKED IN LOW POSITION; SIDE RAILSX2; CALL LIGHT WITHIN REACH; WILL ENDORSE JAMES TO ONCOMING SHIFT Addendum: 04/04/20 at 0628 by JODY CHAPMAN RN PATIENT FIO2 INCREASED TO 45%; TOLERATING WELL
--- NOTE | 2020-04-04 06:28 | NUR ---
DONOR SERVICES TECHNICIAN NOTES STILL AWAITING CXR
--- NOTE | 2020-04-04 07:30 | NUR ---
OWNER/OPERATOR NOTES PT IN BED, AWAKE. NON VERBAL, NO SIGN OF PAIN OR DISTRESS, CALL LIGHT WITHIN REACH, ON VENT/TRACH, NO SOB NOTED, KEPT WARM AND COMFORTABLE IN BED.
[2020-04-04 08:00] VITALS: BP 133/80
--- NOTE | 2020-04-04 08:45 | NUR ---
OXYGEN EQUIPMENT AIDE NOTES PT SEEN BY DR. TALLEY, PER MD KEEP PT NPO FOR NOW, WILL FOLLOW UP WITH CM.
[2020-04-04] MEDS: DAKINS QUARTER STRENGTH (0.125%) 480 ML BOTTLE TOP SCH ×2 (09:00→10:13)
--- NOTE | 2020-04-04 09:54 | NUR ---
NON DESTRUCTIVE TESTING SCIENTIST NOTES PER DR. QUICK, MAY RESUME FEEDING AND MEDS.
[2020-04-04] MEDS ORDERED: GLUCERNA 1.2 1,000 ML BOTTLE NG PRN (10:00)
[2020-04-04] MEDS: THERAHONEY GEL 1.5 OZ TUBE TP SCH (10:14)
[2020-04-04] MEDS: FERROUS SULFATE UDC 300 MG/5 ML UDC GT SCH ×2 (10:26→17:09)
[2020-04-04] MEDS: FENOFIBRATE NANOCRYS (145 MG) 145 MG TABLET GT SCH (10:27)
[2020-04-04] MEDS: PANTOPRAZOLE 40 MG/PACK PACK GT SCH (10:27)
[2020-04-04] MEDS: LEVETIRACETAM SOL (5 ML) 100 MG/ML UDC GT SCH ×2 (10:27→17:09)
[2020-04-04] MEDS: ASPIRIN 81 MG TAB.CHEW GT SCH (10:27)
[2020-04-04] MEDS: GABAPENTIN 300 MG CAPSULE GT SCH ×2 (10:27→17:10)
[2020-04-04] MEDS: MULTIVIT W/MINERALS 1 TAB TABLET GT SCH (10:27)
[2020-04-04 12:00] VITALS: BP 148/65
[2020-04-04] MEDS: INSULIN REGULAR, HUMAN 100 UNIT/ML 3 ML VIAL SQ PRN ×3 (12:50→23:15)
[2020-04-04] MEDS: LEVOFLOXACIN 750 MG /D5W 150ML 750 MG in PREMIX 1 EA IV SCH (14:55)
[2020-04-04] MEDS ORDERED: LIDOCAINE 1%-EPI 1:100,000 20 ML VIAL TP ONE (15:30)
[2020-04-04] MEDS ORDERED: SILVER NITRATE APPLICATOR 1 EA BOX TP SCH (15:30)
[2020-04-04 16:00] VITALS: BP 131/65
--- NOTE | 2020-04-04 19:00 | NUR ---
CCNA NOTES PT IN BED, AWAKE, NON VERBAL, NO SIGN OF PAIN, NOT IN DISTRESS, GT FEEDING INFUSING WELL, PM MEDS GIVEN, PM CARE PROVIDED, WOUND CARE DONE, TURNED AND REPOSITIONED FOR COMFORT, ALL NEEDS ATTENDED.
--- NOTE | 2020-04-04 19:30 | NUR ---
PIPE LINE MAINTENANCE SUPERVISOR OPENING NOTES PATIENT RECEIVED RESTING IN BED COMFORTABLY; AWAKE, OPENS EYES; ABLE TO MOUTH WORDS; TOLERATING VENT SETTINGS WELL; BREATHING EVEN AND UNLABORED; NO SOB NOTED; NO DISTRESS NOTED; PER AM SHIFT, DR. BESS AWARE OF PATIENT STATUS; TELE MONITOR READS SINUS RHYTHM - SINUS TACHY; AIDAN PICC LINE IN PLACE, FLUSHING WELL; GTUBE FEEDING IN PLACE, TUBE FEEDING STARTED; RUNNING AT 60ML/HR; TOLERATING GTUBE FEEDING WELL; WOLFE CATH IN PLACE WITH YELLOW OUTPUT; RECTAL TUBE IN PLACE; SAFETY PRECAUTIONS IMPLEMENTED; BED LOCKED IN LOW POSITION; CALL LIGHT WITHIN REACH; WILL CONT TO MONITOR
[2020-04-04 20:00] VITALS: BP 111/57
[2020-04-04] MEDS: ENOXAPARIN SODIUM 40 MG/0.4 ML DISP.SYRIN SQ SCH (21:00)
[2020-04-04] MEDS: QUETIAPINE FUMARATE 25 MG TABLET GT SCH (21:06)
[2020-04-04] MEDS: ATORVASTATIN 40 MG TABLET GT SCH (21:06)
--- NOTE | 2020-04-04 23:08 | NUR ---
PLANER TAILER NOTES PATIENT IN DEEP SLEEP/DROWSY, RESPONDS TO DEEP STIMULI; RESISTING EXTREMITY MOBILITY UPON SKIN ASSESSMENT; CHARGE NURSE AWARE; WILL CONT TO MONITOR
[2020-04-05] VITALS: BP 100/51
--- NOTE | 2020-04-05 01:03 | NUR ---
WORKFORCE MANAGEMENT CONSULTANT NOTES SPOKE WITH STEVE FROM [facility] TRANSFER [facility] ( CASE MANAGEMENT ) NEED ACCEPTING MD AND FINANCIAL STATUS PRIOR TO TRANSFER PATIENT; AWAITING FOR BED AT [facility]; PER STEVE, WILL SPEAK WITH [facility] CASE MANAGEMENT IN AM WE[facility]; PER STEVE, [facility] AND PATIENT WILL BE PUT ON WAITING LIST; WILL INFORM DAY SHIFT; CHARGE NURSE AWARE; WILL CONT TO MONITOR
[2020-04-05] MEDS: IPRATROPIUM NEB FS 0.5 MG/2.5 ML AMPUL.NEB NEB SCH ×4 (01:13→19:55)
[2020-04-05] MEDS: ALBUTEROL FS 2.5 MG/3 ML VIAL.NEB NEB SCH ×4 (01:13→19:55)
[2020-04-05 04:00] VITALS: BP 108/53
[2020-04-05] MEDS: ropiniROLE 0.5 MG TABLET GT SCH ×3 (05:06→21:40)
[2020-04-05] MEDS: METOPROLOL TARTRATE 25 MG TABLET PO SCH ×3 (05:07→17:50)
[2020-04-05] MEDS: BLOOD SUGAR DIAGNOSTIC 1 EACH STRIP IN SCH ×3 (05:19→17:48)
[2020-04-05 06:11] LABS: BASOPHILS # (AUTO) 0.1 /CMM (0.0-0.2); BASOPHILS % (AUTO) 0.7 % (0.0-2.0); EOSINOPHILS % (AUTO) 3.6 % (0.0-6.0); HEMATOCRIT 24 % (33-45); HEMOGLOBIN 7.7 g/dL (11.5-14.8); LYMPHOCYTES # (AUTO) 1.5 /CMM (0.8-4.8); LYMPHOCYTES % (AUTO) 17.1 % (20.0-44.0); MEAN CORPUSCULAR HGB CONC 33 g/dl (31.0-36.0); MEAN CORPUSCULAR VOLUME 85 fL (82-100); MONOCYTES # (AUTO) 0.5 /CMM (0.1-1.30); MONOCYTES % (AUTO) 6.3 % (2.0-12.0); NEUTROPHILS # (AUTO) 6.3 /CMM (1.8-8.9); NEUTROPHILS % (AUTO) 72.3 % (43.0-81.0); PLATELET COUNT (AUTO) 307 /CMM (150-450); RED BLOOD CELL COUNT(AUTO) 2.79 MIL/uL (4.0-5.2); WHITE BLOOD COUNT (AUTO) 8.8 K/uL (4.3-11.0)
[2020-04-05 06:21] LABS: CALCIUM, SERUM 9.6 mg/dL (8.5-10.1); CREATININE 1.2 mg/dL (0.6-1.3); MAGNESIUM 2.3 mg/dL (1.8-2.4); PHOSPHORUS 3.1 mg/dL (2.5-4.9); POTASSIUM 3.6 mmol/L (3.5-5.1)
[2020-04-05] MEDS: INSULIN REGULAR, HUMAN 100 UNIT/ML 3 ML VIAL SQ PRN ×3 (06:29→17:49)
--- NOTE | 2020-04-05 06:42 | NUR ---
LIVING ADVISOR CLOSING NOTES PATIENT RESTING IN BED COMFORTABLY; EASILY AROUSABLE; OPENS EYES; ABLE TO MOUTH WORDS; BREATHING EVEN AND UNLABORED; NO SOB NOTED; TOLERATING CURRENT VENT SETTINGS WELL, NO CHANGES; TELE MONITOR READS SINUS TACHY 106; AIDAN PICC LINE INTACT AND PATENT, FLUSHING WELL; GTUBE FEEDING IN PLACE, PATIENT TOLERATING FEEDING WITH LOW RESIDUALS; WOLFE IN PLACE WITH YELLOW OUTPUT OF 450CC; RECTAL TUBE 300CC OUTPUT; ALL NEEDS RENDERED; CHARGE NURSE AWARE OF PATIENT WAITLIST FOR [facility], WILL INFORM DAY SHIFT; SAFETY PRECAUTIONS IMPLEMENTED; BEDLOCKED IN LOW POSITION; SIDE RAILSX2; WILL ENDORSE JAMES TO ONCOMING SHIFT
--- NOTE | 2020-04-05 07:20 | NUR ---
RN NOTE THE PATIENT IS VENT AND TRACH DEPENDENT PATIENT AND TOLERATES THE SETTINGS WELL. ALERT AND ORIENTED X3. RECTAL TUBE PRESENT. WOLFE CATH PRESENT. NO BLADDER DISTENSION NOTED. GT FEEDING GLUCERNA 1.2 INFUSING AT 60ML/HR. ABDOMEN SOFT AND NON-DISTENDED. AIDAN PICC LINE G 18 PATENT AND SALINE LOCKED. SIDE RAILS UP X3. CALL LIGHT WITHIN REACH. WILL CONTINUE TO MONITOR.
[2020-04-05 08:00] VITALS: BP 92/63
[2020-04-05] MEDS: FERROUS SULFATE UDC 300 MG/5 ML UDC GT SCH ×2 (10:18→17:47)
[2020-04-05] MEDS: MULTIVIT W/MINERALS 1 TAB TABLET GT SCH (10:19)
[2020-04-05] MEDS: FENOFIBRATE NANOCRYS (145 MG) 145 MG TABLET GT SCH (10:19)
[2020-04-05] MEDS: GABAPENTIN 300 MG CAPSULE GT SCH ×2 (10:19→17:47)
[2020-04-05] MEDS: LEVETIRACETAM SOL (5 ML) 100 MG/ML UDC GT SCH ×2 (10:19→17:47)
[2020-04-05] MEDS: ASPIRIN 81 MG TAB.CHEW GT SCH (10:19)
[2020-04-05] MEDS: PANTOPRAZOLE 40 MG/PACK PACK GT SCH (10:19)
[2020-04-05] MEDS: TRAMADOL HCL 50 MG TABLET GT PRN (10:22)
[2020-04-05] MEDS: DAKINS QUARTER STRENGTH (0.125%) 480 ML BOTTLE TOP SCH ×2 (10:35)
[2020-04-05] MEDS: THERAHONEY GEL 1.5 OZ TUBE TP SCH (10:35)
[2020-04-05 12:00] VITALS: BP 120/63
[2020-04-05] MEDS: LEVOFLOXACIN 750 MG /D5W 150ML 750 MG in PREMIX 1 EA IV SCH (15:43)
[2020-04-05 16:00] VITALS: BP 121/63
--- NOTE | 2020-04-05 18:39 | NUR ---
RN CLOSING NOTE THE PATIENT IS ALERT AND ORIENTED X3, ABLE TO MOUTH WORDS. THE PATIENT IS VENT AND TRACH DEPENDENT AND TOLERATES THE SETTINGS WELL. DENIES PAIN. PATIENT IS IN NO APPARENT DISTRESS. AIDAN PICC LINE PATENT AND SALINE LOCKED. GT FEEDING GLUCERNA 1.2 INFUSING AT 60 ML/HR AND THE PATIENT TOLERATES THE FEEDING WELL WITH NO RESIDUAL. ABDOMEN SOFT AND NON-DISTENDED. WOLFE CATH PRESENT WITH CLEAR, YELLOW COLOR URINE. NO BLADDER DISTENSION NOTED. BED LOW AND LOCKED. SIDE RAILS UP X3. CALL LIGHT WITHIN REACH. WILL ENDORSE TO TECHNICAL STAFF ASSISTANT. Addendum: 04/05/20 at 1844 by KAEL REECE RN RN NOTE RECTAL TUBE PRESENT WITH LIQUID AND BROWN OUTPUT. TELE BOX READING IS SR 93.
[2020-04-05 20:00] VITALS: BP 95/51
--- NOTE | 2020-04-05 20:00 | NUR ---
MANAGER BODY NOTES RECEIVED ON BED A/O X3,BREATHING NON LABORED,VENT SETTINGS TOLERATED WELL,O2 SAT 100%.NS AT TKO RATE VIA IV PUMP ON RIGHT UPPER ARM PICC LINE.DVT PUMP IN USED OB BOTH LEGS,ON GEL MURIEL FOR SKIN MANAGEMENT,REPOSITION PER PROTOCOL.GT FEEDING IN PROGRESS AT 60ML/HR RATE,TOLERATED WELL,NO RESIDUAL VOLUME NOTED.SITTER AT BEDSIDE FOR SAFETY.AWAITING TRANSFER TO HIGHER LEVEL OF CARE.WILL CONTINUE TO MONITOR STATUS.
[2020-04-05] MEDS: ENOXAPARIN SODIUM 40 MG/0.4 ML DISP.SYRIN SQ SCH (21:00)
--- NOTE | 2020-04-05 21:00 | NUR ---
FENDER MECHANIC NOTES DUE LOVENOX HELD FOR LOW H/H,7.7
[2020-04-05] MEDS: QUETIAPINE FUMARATE 25 MG TABLET GT SCH (21:41)
[2020-04-05] MEDS: ATORVASTATIN 40 MG TABLET GT SCH (21:41)
[2020-04-05] MEDS: GLUCERNA 1.2 1,000 ML BOTTLE NG PRN (23:11)
--- NOTE | 2020-04-05 23:38 | NUR ---
SENIOR UI SOFTWARE ENGINEER NOTES DUE MEDS ADMINISTERED VIA GT,WATER FLUSHING DONE HOB ELEVATED FOR ASPIRATION PRECAUTION.
--- NOTE | 2020-04-05 23:39 | NUR ---
CALENDER INSPECTOR NOTES ST-97 ON TELE MONITOR.REPOSITIONED.
[2020-04-06] VITALS: BP 95/56
[2020-04-06] MEDS: BLOOD SUGAR DIAGNOSTIC 1 EACH STRIP IN SCH ×5 (00:50→23:33)
[2020-04-06] MEDS: ACETAMINOPHEN 650 MG/20.3 ML UDC NG PRN ×2 (00:53→23:36)
--- NOTE | 2020-04-06 00:53 | NUR ---
MOTION PICTURE COMMENTATOR NOTES ACCU-CEHCK BLOOD SUGAR CHECK 182,COVERED WITH HUMULIN R 3 UNITS PER SLIDING SCALE.
--- NOTE | 2020-04-06 00:53 | NUR ---
CONDUCTOR ORCHESTRA NOTES ORAL TEMP OF 100.0 ORALLY,COOLING MEASURES INITIATED.MEDICATED WITH TYLENOL 650MG/GT ORDERED.
[2020-04-06] MEDS: INSULIN REGULAR, HUMAN 100 UNIT/ML 3 ML VIAL SQ PRN ×4 (01:02→17:23)
[2020-04-06] MEDS: IPRATROPIUM NEB FS 0.5 MG/2.5 ML AMPUL.NEB NEB SCH ×4 (01:52→20:21)
[2020-04-06] MEDS: ALBUTEROL FS 2.5 MG/3 ML VIAL.NEB NEB SCH ×4 (01:52→20:21)
--- NOTE | 2020-04-06 02:34 | NUR ---
EARTHMOVING LABOURER NOTES ORAL TEMP RE CHECK 98.7 THIS TIME.
[2020-04-06 05:08] VITALS: BP 122/60
[2020-04-06] MEDS: ropiniROLE 0.5 MG TABLET GT SCH ×3 (05:20→21:25)
[2020-04-06] MEDS: METOPROLOL TARTRATE 25 MG TABLET PO SCH ×4 (05:21→17:20)
--- NOTE | 2020-04-06 05:30 | NUR ---
INTEGRITY SPECIALIST NOTES ACCU-CHECK BLOOD SUGAR CHECK 174,COVERED WITH UMULIN R 3 UNITS PER SLIDING SCALE.
--- NOTE | 2020-04-06 06:00 | NUR ---
CITY DIRECTOR NOTES MORNING CARE RENDERED WITH THE CLEMENTINA KENT,TOLERATED WELL,DRESSING CHANGE DONE TO SACRAL AREA WITH DAKINS SOLUTION,CESURED WITH DRY DRESSING AND COVERED WITH ABD PAD.
[2020-04-06 06:05] LABS: BASOPHILS % (AUTO) 0.3 % (0.0-2.0); EOSINOPHILS % (AUTO) 2.7 % (0.0-6.0); HEMATOCRIT 24 % (33-45); HEMOGLOBIN 7.7 g/dL (11.5-14.8); LYMPHOCYTES % (AUTO) 22.9 % (20.0-44.0); MEAN CORPUSCULAR HGB CONC 32 g/dl (31.0-36.0); MEAN CORPUSCULAR VOLUME 87 fL (82-100); MONOCYTES # (AUTO) 0.5 /CMM (0.1-1.30); MONOCYTES % (AUTO) 6.1 % (2.0-12.0); NEUTROPHILS # (AUTO) 5.8 /CMM (1.8-8.9); PLATELET COUNT (AUTO) 288 /CMM (150-450); WHITE BLOOD COUNT (AUTO) 8.5 K/uL (4.3-11.0)
[2020-04-06 06:07] LABS: CREATININE 1.2 mg/dL (0.6-1.3); POTASSIUM 3.8 mmol/L (3.5-5.1)
--- NOTE | 2020-04-06 06:27 | NUR ---
FLIGHT CREW TIME CLERK NOTES AFEBRILE,LATEST ORAL TEMP 98.1,GT FEEDING IN PROGRESS AT 60ML/HR RATE,NO RESIDUAL VOLUME NOTED.TRACH/VENT AT SAME SETTINGS TOLERATED WELL.IN NO ACUTE DISTRESS,AWAITING TRANSFER TO HIGHER LEVEL OF CARE.WILL ENDORSE TO DAY NURSE FOR JAMES.
[2020-04-06 08:00] VITALS: BP 101/53
--- NOTE | 2020-04-06 08:00 | NUR ---
RN OPENING NOTE Patient is resting in bed, A/O x2-3, showing no signs of acute distress or SOB, on vent saturating 100%. AC 16 TV 400 FIO2 45% PEEP 5 Portex #8. Telemetry SR 86. Patient is bedbound, turned and repositioned, skin protection measures implemented. Mendez catheter in place with clear yellow output. Rectal tube in place with brown liquid output. G-tube running glucerna 1.2 @60mls/hr, with 0ml residual, water flushes PRN. AIDAN PICC line is clean and intact flushing well. Bed is in lowest position, side rails x2 in upright position, call light is within reach, fall safety and aspiration precautions enforced. Will continue with plan of care.
[2020-04-06] MEDS: FERROUS SULFATE UDC 300 MG/5 ML UDC GT SCH ×2 (10:02→17:18)
[2020-04-06] MEDS: LEVETIRACETAM SOL (5 ML) 100 MG/ML UDC GT SCH ×2 (10:02→17:18)
[2020-04-06] MEDS: PANTOPRAZOLE 40 MG/PACK PACK GT SCH (10:02)
[2020-04-06] MEDS: ASPIRIN 81 MG TAB.CHEW GT SCH (10:02)
[2020-04-06] MEDS: FENOFIBRATE NANOCRYS (145 MG) 145 MG TABLET GT SCH (10:02)
[2020-04-06] MEDS: MULTIVIT W/MINERALS 1 TAB TABLET GT SCH (10:02)
[2020-04-06] MEDS: GABAPENTIN 300 MG CAPSULE GT SCH ×2 (10:03→17:18)
[2020-04-06] MEDS: THERAHONEY GEL 1.5 OZ TUBE TP SCH (10:04)
[2020-04-06] MEDS: DAKINS QUARTER STRENGTH (0.125%) 480 ML BOTTLE TOP SCH ×2 (10:05)
[2020-04-06] MEDS ORDERED: NUT.237L45 NG (10:09)
[2020-04-06] MEDS ORDERED: ALBUT2 NEB (10:09)
[2020-04-06] MEDS ORDERED: SILV100S2 TP (10:09)
[2020-04-06] MEDS ORDERED: METO25TA20 PO (10:09)
[2020-04-06] MEDS ORDERED: IPRA0.2S9 NEB (10:09)
[2020-04-06] MEDS ORDERED: LEVO750P5 IV (10:09)
[2020-04-06] MEDS ORDERED: SODI473S8 TOP (10:09)
[2020-04-06 12:00] VITALS: BP 110/55
[2020-04-06] MEDS: FUROSEMIDE 20 MG TABLET PO SCH (12:38)
[2020-04-06 17:00] VITALS: BP 112/54
[2020-04-06] MEDS: LEVOFLOXACIN (250MG) 250 MG TABLET PO SCH (17:35)
[2020-04-06] MEDS: GLUCERNA 1.2 1,000 ML BOTTLE NG PRN (18:02)
--- NOTE | 2020-04-06 19:00 | NUR ---
RN CLOSING NOTE Patient is resting in bed, A/O x2-3, showing no signs of acute distress or SOB, on vent saturating 100%. AC 16 TV 400 FIO2 45% PEEP 5 Portex #8. Telemetry SR 80s-90s. Patient is bedbound, turned and repositioned, skin protection measures implemented, wound care completed as ordered. Mendez catheter in place with clear yellow output--250cc. Rectal tube in place with brown liquid output-50cc. G-tube running glucerna 1.2 @60mls/hr, with 0ml residual, water flushes PRN. AIDAN PICC line is clean and intact flushing well. All patient needs met, all due medications given, patient kept clean and dry throughout shift. Bed is in lowest position, side rails x2 in upright position, call light is within reach, fall safety and aspiration precautions enforced. Will endorse to night stocker for JAMES.
--- NOTE | 2020-04-06 19:30 | NUR ---
SACK CLEANING HAND NOTES RECEIVED RESTING COMFORTABLY ON BED,A/O X3,ON TRACH TO VENT,SETTINGS TOLERATED WELL.GT FEEDING IN PROGRESS VIA FEEDING PUMP,TOLERATED WELL,NO RESIDUAL VOLUME NOTED.WITH AIDAN PICC LINE FOR MEDS.SITTER AT BEDSIDE FOR SAFETY.REPOSITION PER PROTOCOL,DVT PUMP IN USED FOR DVT PROPHYLAXIS.ACCEPTED AT [facility],AWAITNG FOR ROOM.WILL CONTINUE TO MONITOR STATUS.
[2020-04-06 20:00] VITALS: BP 100/51
[2020-04-06] MEDS: ENOXAPARIN SODIUM 40 MG/0.4 ML DISP.SYRIN SQ SCH (21:00)
[2020-04-06] MEDS: ATORVASTATIN 40 MG TABLET GT SCH (21:25)
[2020-04-06] MEDS: QUETIAPINE FUMARATE 25 MG TABLET GT SCH (21:26)
--- NOTE | 2020-04-06 23:00 | NUR ---
ENROLLMENT CLERK NOTES ORAL TEMP OF 100.5,TYLENOL 650MG/GT GIVEN ORDERED
--- NOTE | 2020-04-06 23:30 | NUR ---
LOCOMOTIVE OBSERVER NOTES ACCU-CHECK BLOOD SUGAR CHECK 288,WILL COVER WITH HUMULIN R PER SLIDING SCALE.
--- NOTE | 2020-04-06 23:36 | NUR ---
PINBALL MACHINE REPAIRER NOTES SKIN WARM TO THE TOUCH,ORAL TEMP OF 100.5,TYLENOL 650MG/GT GIVEN ORDERED.
--- NOTE | 2020-04-07 | NUR ---
WHARF WORKER NOTES GIVEN SQ HUMULIN R 6 UNITS PER SLIDING SCALE.,GT FEEDING PROGRESS.
[2020-04-07] MEDS: INSULIN REGULAR, HUMAN 100 UNIT/ML 3 ML VIAL SQ PRN ×4 (00:01→17:39)
[2020-04-07] MEDS: METOPROLOL TARTRATE 25 MG TABLET PO SCH ×4 (00:04→17:17)
[2020-04-07] MEDS: IPRATROPIUM NEB FS 0.5 MG/2.5 ML AMPUL.NEB NEB SCH ×4 (02:11→19:31)
[2020-04-07] MEDS: ALBUTEROL FS 2.5 MG/3 ML VIAL.NEB NEB SCH ×4 (02:11→19:31)
[2020-04-07 04:00] VITALS: BP 111/66
[2020-04-07] MEDS: ropiniROLE 0.5 MG TABLET GT SCH ×3 (05:15→21:23)
[2020-04-07] MEDS: BLOOD SUGAR DIAGNOSTIC 1 EACH STRIP IN SCH ×3 (05:37→17:39)
--- NOTE | 2020-04-07 06:28 | NUR ---
DEVELOPER PROVER MECHANICAL NOTES AFEBRILE 98.0,MORNING CARE TOLERATED WELL,GT FEEDING TOLERATED,NO RESIDUAL VOLUME.REPOSITIONED PER PROTOCOL.FOR TRANSFER HIGHER LEVEL OF CARE,ACCEPTED IN [facility],NO ROOM YET.WILL ENDORSE TO DAY NURSE FOR JAMES.
--- NOTE | 2020-04-07 07:30 | NUR ---
ENGRAVER APPRENTICE DECORATIVE OPENING NOTES Received pt A/O x2-3, Not in any signs of discomfort. On mechanical vent, saturating 97%. AC 16 TV 400 FIO2 45% PEEP 5 Portex #8. Telemetry SR and HR in 80s. Patient is bedbound, turned and repositioned, skin protection measures implemented. Mendez catheter in place with clear yellow output. Rectal tube in place with brown liquid output. G-tube running glucerna 1.2 @60mls/hr, with 0ml residual, water flushes PRN. AIDAN PICC line is clean and intact flushing well. Bed is in lowest position, side rails x2 in upright position, call light is within reach, fall safety and aspiration precautions enforced. Will continue to monitor for JAMES.
[2020-04-07] MEDS: GLUCERNA 1.2 1,000 ML BOTTLE NG PRN (08:53)
[2020-04-07] MEDS: FERROUS SULFATE UDC 300 MG/5 ML UDC GT SCH ×2 (09:03→17:16)
[2020-04-07] MEDS: FENOFIBRATE NANOCRYS (145 MG) 145 MG TABLET GT SCH (09:03)
[2020-04-07] MEDS: ASPIRIN 81 MG TAB.CHEW GT SCH (09:03)
[2020-04-07] MEDS: MULTIVIT W/MINERALS 1 TAB TABLET GT SCH (09:03)
[2020-04-07] MEDS: GABAPENTIN 300 MG CAPSULE GT SCH ×2 (09:04→17:16)
[2020-04-07] MEDS: PANTOPRAZOLE 40 MG/PACK PACK GT SCH (09:04)
[2020-04-07] MEDS: LEVETIRACETAM SOL (5 ML) 100 MG/ML UDC GT SCH ×2 (09:04→17:16)
[2020-04-07] MEDS: FUROSEMIDE 20 MG TABLET PO SCH (09:04)
[2020-04-07] MEDS: THERAHONEY GEL 1.5 OZ TUBE TP SCH (09:06)
[2020-04-07] MEDS: DAKINS QUARTER STRENGTH (0.125%) 480 ML BOTTLE TOP SCH ×2 (09:07→09:08)
[2020-04-07] MEDS: LEVOFLOXACIN (250MG) 250 MG TABLET PO SCH (15:41)
--- NOTE | 2020-04-07 18:02 | NUR ---
RN CLOSING NOTE THE PATIENT IS ALERT AND ORIENTED X3 AND ABLE TO MOUTH WORDS. PATIENT IS VENT AND TRACHA ND TOLERATES VENT SETTINGS WELL. THE PATIENT DENIES PAIN. IN NO APPARENT DISTRESS.TELE BOX READING IS SR 87. WOLFE CATH PRESENT AND NOTED CLEAR, YELLOW COLOR URINE. NO BLADDER DISTENSION NOTED. FLEXISEAL PRESENT WITH LIQUID, BROWN COLORED STOOL. GT FEEDING GLUCERNA 1.2 INFUSING AT 60ML/HR AND THE PATIENT TOLERATES THE FEEDING WELL.GT FEEDING WITH 0 RESIDUAL. ABDOMEN SOFT AND NON-DISTENDED. AIDAN G 18 PICC LINE PATENT AND SALINE LOCKED. BED LOW AND LOCKED. SIDE RAILS UP X3. CALL LIGHT WITHIN REACH. WILL ENDORSE TO BOILER/CHILLER OPERATOR.
--- NOTE | 2020-04-07 19:28 | NUR ---
STROKE PROGRAM COORDINATOR NOTES PATIENT IN BED, AWAKE, ALERT AND ORIENTED X 3. BREATHING EVEN AND UNLABORED ON MV PORTEX 8 AC 16, TV 400, FIO2 45, PEEP 5. SHOWS NO SIGNS OF ACUTE RESPIRATORY DISTRESS. NO ACUTE PAIN. TELE MONITOR SR. FC INTACT AND IN PLACE RUNNING YELLOW CLEAN URINE. FLEXI SEAL INTACT WITH STOOL. GTUBE RUNNING GLUCERNA AT 1.2 AT 60ML/HR. NO RESIDUALS. AIDAN PICC LINE SL. SHOWS NO SIGNS OF INFILTRATION, NO REDNESS, FLUSHING WELL. SAFETY PRECAUTIONS IN PLACE. SITTER AT BEDSIDE. BED IN LOWEST POSITION, LOCKED, AND CALL LIGHT KEPT WITHIN REACH. WILL CONTINUE TO MONITOR.
[2020-04-07 20:00] VITALS: BP 112/62
--- NOTE | 2020-04-07 20:05 | NUR ---
RT NOTE Pt rec'd trached on [facility] vent on AC mode. Pt shows no signs of resp distress or sob. Trach is patent and secured. Alarms are set and audible. ambu bag and emergency spare trach bedside. Vent plugged into red outlet. Will continue to monitor closely. Addendum: 04/07/20 at 2005 by MEGAN CONRAD RT Amended: Links added.
[2020-04-07] MEDS: ATORVASTATIN 40 MG TABLET GT SCH (21:23)
[2020-04-07] MEDS: QUETIAPINE FUMARATE 25 MG TABLET GT SCH (21:23)
[2020-04-07] MEDS: ENOXAPARIN SODIUM 40 MG/0.4 ML DISP.SYRIN SQ SCH (21:23)
--- NOTE | 2020-04-07 22:37 | NUR ---
DATA PROCESSING CONTROL CLERK NOTES SPOKE TO AXEL FROM [place]. THEY WILL NOT BE ACCEPTING PT. ICU IS CURRENTLY FULL. WILL ENDORSE TO AM SHIFT.
[2020-04-08] VITALS: BP 103/55
[2020-04-08] MEDS: GLUCERNA 1.2 1,000 ML BOTTLE NG PRN ×2 (00:31→17:26)
[2020-04-08] MEDS: BLOOD SUGAR DIAGNOSTIC 1 EACH STRIP IN SCH ×5 (00:45→23:42)
[2020-04-08] MEDS: INSULIN REGULAR, HUMAN 100 UNIT/ML 3 ML VIAL SQ PRN ×5 (00:49→23:43)
[2020-04-08] MEDS: IPRATROPIUM NEB FS 0.5 MG/2.5 ML AMPUL.NEB NEB SCH ×4 (01:43→19:27)
[2020-04-08] MEDS: ALBUTEROL FS 2.5 MG/3 ML VIAL.NEB NEB SCH ×4 (01:43→19:27)
[2020-04-08 04:00] VITALS: BP 104/55
[2020-04-08] MEDS: METOPROLOL TARTRATE 25 MG TABLET PO SCH ×5 (05:30→23:57)
[2020-04-08] MEDS: ropiniROLE 0.5 MG TABLET GT SCH ×3 (05:30→21:35)
--- NOTE | 2020-04-08 06:37 | NUR ---
MANAGER GOVERNMENT NOTES PATIENT IN BED, ASLEEP, ALERT AND ORIENTED X 3. BREATHING EVEN AND UNLABORED ON MV PORTEX 8 AC 16, TV 400, FIO2 45, PEEP 5. SHOWS NO SIGNS OF ACUTE RESPIRATORY DISTRESS. NO ACUTE PAIN. TELE MONITOR SR/ ST. FC INTACT AND IN PLACE RUNNING YELLOW CLOUDY URINE. FLEXI SEAL INTACT WITH STOOL. GTUBE RUNNING GLUCERNA AT 1.2 AT 60ML/HR. NO RESIDUALS. AIDAN PICC LINE SL. SHOWS NO SIGNS OF INFILTRATION, NO REDNESS, FLUSHING WELL. ALL DUE MEDICATIONS GIVEN. ALL NEEDS ATTENDED TO. SAFETY PRECAUTIONS IN PLACE. SITTER AT BEDSIDE. BED IN LOWEST POSITION, LOCKED, AND CALL LIGHT KEPT WITHIN REACH. WILL ENDORSE TO ONCOMING NURSE.
[2020-04-08 07:28] LABS: BASOPHILS % (AUTO) 0.2 % (0.0-2.0); EOSINOPHILS % (AUTO) 2.6 % (0.0-6.0); HEMATOCRIT 25 % (33-45); HEMOGLOBIN 7.9 g/dL (11.5-14.8); LYMPHOCYTES # (AUTO) 2.1 /CMM (0.8-4.8); MEAN CORPUSCULAR HGB CONC 32 g/dl (31.0-36.0); MEAN CORPUSCULAR VOLUME 88 fL (82-100); MONOCYTES # (AUTO) 0.5 /CMM (0.1-1.30); MONOCYTES % (AUTO) 5.4 % (2.0-12.0); NEUTROPHILS # (AUTO) 6.8 /CMM (1.8-8.9); NEUTROPHILS % (AUTO) 69.8 % (43.0-81.0); PLATELET COUNT (AUTO) 316 /CMM (150-450); RED BLOOD CELL COUNT(AUTO) 2.81 MIL/uL (4.0-5.2); WHITE BLOOD COUNT (AUTO) 9.8 K/uL (4.3-11.0)
[2020-04-08 07:30] LABS: CALCIUM, SERUM 8.6 mg/dL (8.5-10.1); CREATININE 1.1 mg/dL (0.6-1.3); MAGNESIUM 2.3 mg/dL (1.8-2.4); PHOSPHORUS 3.9 mg/dL (2.5-4.9); POTASSIUM 4.5 mmol/L (3.5-5.1)
--- NOTE | 2020-04-08 07:33 | NUR ---
ROLLED SEAT TRIMMER OPENING NOTES RECEIVED PT IN BED AWAKE IN NO ACUTE SIGNS OF DISTRESS. HOB ELEVATED. A/O X 2-3 AND ABLE TO MOUTH WORDS, DENIES PAIN OR ANY DISCOMFORTS AT THIS TIME. ON MECHA VENTILATOR AT PRESCRIBED PARAMETERS, TOLERATING CURRENT SETTINGS WELL WITH NO S/S RESPIRATORY DISTRESS NOTED. TELE -MONITORING SHOWS READING OF SR WITH HR ON THE 90'S, NO CARDIAC DISTRESS MADE. AIDAN PICC LINE INTACT AND PATENT. G-TUBE IN PLACE AND PATENT, GT FEEDING OF GLUCERNA 1.2 RUNNING AT 60ML/HR, TOLERATING WELL. ASPIRATION PRECAUTIONS MAINTAINED. WOLFE CATH IN PLACE WITH CLOUDY YELLOW URINE OUTPUT NOTED. FLEXI SEAL RECTAL TUBE IN PLACE WITH LIQUID TO SOFT BROWNISH YELLOWISH COLORED STOOL NOTED. SAFETY MEASURES IN PLACE: BED LOW AND LOCKED. SIDE RAILS UP X2. CALL LIGHT WITHIN REACH. WILL CONTINUE TO MONITOR
[2020-04-08 08:00] VITALS: BP 110/67
[2020-04-08] MEDS: PANTOPRAZOLE 40 MG/PACK PACK GT SCH (08:48)
[2020-04-08] MEDS: FENOFIBRATE NANOCRYS (145 MG) 145 MG TABLET GT SCH (08:48)
[2020-04-08] MEDS: ASPIRIN 81 MG TAB.CHEW GT SCH (08:48)
[2020-04-08] MEDS: MULTIVIT W/MINERALS 1 TAB TABLET GT SCH (08:48)
[2020-04-08] MEDS: FERROUS SULFATE UDC 300 MG/5 ML UDC GT SCH ×2 (08:48→17:25)
[2020-04-08] MEDS: GABAPENTIN 300 MG CAPSULE GT SCH ×2 (08:48→17:26)
[2020-04-08] MEDS: FUROSEMIDE 20 MG TABLET PO SCH (08:49)
[2020-04-08] MEDS: LEVETIRACETAM SOL (5 ML) 100 MG/ML UDC GT SCH ×2 (08:56→17:26)
[2020-04-08] MEDS: DAKINS QUARTER STRENGTH (0.125%) 480 ML BOTTLE TOP SCH ×2 (09:03)
[2020-04-08] MEDS: THERAHONEY GEL 1.5 OZ TUBE TP SCH (09:04)
[2020-04-08 12:00] VITALS: BP 136/85
[2020-04-08] MEDS: LEVOFLOXACIN (250MG) 250 MG TABLET PO SCH (15:13)
[2020-04-08 16:00] VITALS: BP 112/54
--- NOTE | 2020-04-08 18:47 | NUR ---
BUSH HOG OPERATOR CLOSING NOTES PT IN BED AWAKE AT THIS TIME. A/O X 2-3. ABLE TO MOUTH WORDS. ON MECHANICAL VENTILATOR AT PRESCRIBED PARAMETERS, TOLERATING CURRENT SETTINGS WELL WITH NO ACUTE RESPIRATORY DISTRESS NOTED DURING SHIFT. TELE -MONITORING SHOWS READING OF SR WITH HR ON THE 80'S, NO CARDIAC DISTRESS MADE. AIDAN PICC LINE INTACT, PATENT AND FLUSHES WELL. G-TUBE IN PLACE AND PATENT, GT FEEDING OF GLUCERNA 1.2 IN PROGRESS @ 60ML/HR, TOLERATING WELL. ASPIRATION PRECAUTIONS MAINTAINED. WOLFE CATH IN PLACE WITH CLOUDY YELLOW URINE OUTPUT NOTED, WOLFE CARE DONE. FLEXI SEAL RECTAL TUBE IN PLACE WITH LIQUID TO SOFT BM NOTED. REPOSITIONED PATIENT EVERY 2 HOURS AND PRN. DRESSING ON SACRAL AREA C/D/I. ALL SAFETY MEASURES KEPT IN PLACE: BED IN LOWEST LOCKED POSITION WITH SR UP X2. CALL LIGHT W/IN REACH. WILL ENDORSE TO TIRE CHANGER AIRCRAFT NURSE FOR JAMES.
[2020-04-08 20:00] VITALS: BP 109/61
--- NOTE | 2020-04-08 20:00 | NUR ---
RN NOTES RECEIVED PATIENT IN BED, TRACH DEPENDENT, VENTILATOR USING SET PARAMETERS, SPO2 99-100%, NOT IN APPARENT DISTRESS, CALM, KEPT OF HOB ELEVATED, RECTAL TUBE DRAINING, WOLFE CATHETER DRAINING, PEG TUBE INFUSING, TOLERATED WELL. WILL CONTINUE TO MONITOR.
[2020-04-08] MEDS: ATORVASTATIN 40 MG TABLET GT SCH (21:35)
[2020-04-08] MEDS: QUETIAPINE FUMARATE 25 MG TABLET GT SCH (21:35)
[2020-04-08] MEDS: ENOXAPARIN SODIUM 40 MG/0.4 ML DISP.SYRIN SQ SCH (21:36)
[2020-04-09 00:01] VITALS: BP 114/63
[2020-04-09] MEDS: IPRATROPIUM NEB FS 0.5 MG/2.5 ML AMPUL.NEB NEB SCH ×4 (01:49→19:34)
[2020-04-09] MEDS: ALBUTEROL FS 2.5 MG/3 ML VIAL.NEB NEB SCH ×4 (01:49→19:34)
[2020-04-09] MEDS: ropiniROLE 0.5 MG TABLET GT SCH ×3 (04:59→22:41)
[2020-04-09 05:27] VITALS: BP 115/60
[2020-04-09] MEDS: INSULIN REGULAR, HUMAN 100 UNIT/ML 3 ML VIAL SQ PRN ×3 (05:27→16:54)
[2020-04-09] MEDS: METOPROLOL TARTRATE 25 MG TABLET PO SCH ×3 (05:28→16:58)
[2020-04-09] MEDS: BLOOD SUGAR DIAGNOSTIC 1 EACH STRIP IN SCH ×3 (05:48→16:51)
--- NOTE | 2020-04-09 06:09 | NUR ---
RN NOTES ALERT AND AWAKE, TRACH, VENTILATOR ON APPROPRIATE SETTINGS, SPO2 100%, NOT IN APPARENT DISTRESS, VITAL SIGNS STABLE, FLEXI SEAL INTACT, WOLFE CATHETER DRAINING GOOD, TOLERATING PEG TUBE FEEDING, NO RESIDUAL AT GLUCERNA AT 60 ML/HR, FLUSHING INTERMITTENTLY, COCCYX WOUND CARE PERFORMED, TURNING AND REPOSITIONING, PLAN IS TO TRANSFER PATIENT TO ANOTHER HOSPITAL FOR PCI FOR TREATMENT OF CARDIOMYOPATHY, AWAITING ADVICE FROM SALESPERSON HOSIERY.
[2020-04-09 06:10] LABS: BASOPHILS % (AUTO) 0.6 % (0.0-2.0); EOSINOPHILS % (AUTO) 4.8 % (0.0-6.0); HEMATOCRIT 26 % (33-45); HEMOGLOBIN 8.1 g/dL (11.5-14.8); LYMPHOCYTES % (AUTO) 22.7 % (20.0-44.0); MEAN CORPUSCULAR HGB CONC 32 g/dl (31.0-36.0); MEAN CORPUSCULAR VOLUME 88 fL (82-100); MONOCYTES # (AUTO) 0.5 /CMM (0.1-1.30); MONOCYTES % (AUTO) 5.3 % (2.0-12.0); NEUTROPHILS # (AUTO) 5.7 /CMM (1.8-8.9); NEUTROPHILS % (AUTO) 66.6 % (43.0-81.0); PLATELET COUNT (AUTO) 303 /CMM (150-450); RED BLOOD CELL COUNT(AUTO) 2.93 MIL/uL (4.0-5.2); WHITE BLOOD COUNT (AUTO) 8.6 K/uL (4.3-11.0)
[2020-04-09 06:37] LABS: CALCIUM, SERUM 8.5 mg/dL (8.5-10.1); CREATININE 1.1 mg/dL (0.6-1.3); POTASSIUM 4.4 mmol/L (3.5-5.1)
--- NOTE | 2020-04-09 07:30 | NUR ---
RN OPENING NOTES PT IN BED AWAKE IN NO ACUTE SIGNS OF DISTRESS. HOB ELEVATED. A/O X 2-3 AND ABLE TO MOUTH WORDS, DENIES PAIN OR ANY DISCOMFORTS AT THIS TIME. PT IS VENT DEPENDENT, TOLERATING CURRENT SETTINGS WELL WITH NO S/S RESPIRATORY DISTRESS NOTED. TELE -MONITORING SHOWS READING OF SR WITH HR ON THE 90'S, NO CARDIAC DISTRESS MADE. AIDAN PICC LINE INTACT AND PATENT. DRESSING CDI. G-TUBE IN PLACE AND PATENT, GT FEEDING OF GLUCERNA 1.2 RUNNING AT 60ML/HR, TOLERATING WELL. ASPIRATION PRECAUTIONS MAINTAINED. WOLFE CATH IN PLACE WITH CLOUDY YELLOW URINE OUTPUT NOTED. FLEXI SEAL RECTAL TUBE IN PLACE WITH LIQUID TO SOFT BROWNISH YELLOWISH COLORED STOOL NOTED. SAFETY MEASURES IN PLACE: BED LOW AND LOCKED. SIDE RAILS UP X2. CALL LIGHT WITHIN REACH. WILL CONTINUE TO MONITOR
[2020-04-09 08:00] VITALS: BP 100/58
[2020-04-09] MEDS ORDERED: POTASSIUM CL. PREMIX PERIPHER. 50 ML IV SCH (08:00)
[2020-04-09] MEDS: FUROSEMIDE 20 MG TABLET PO SCH (08:28)
[2020-04-09] MEDS: ASPIRIN 81 MG TAB.CHEW GT SCH (08:28)
[2020-04-09] MEDS: PANTOPRAZOLE 40 MG/PACK PACK GT SCH (08:28)
[2020-04-09] MEDS: LEVETIRACETAM SOL (5 ML) 100 MG/ML UDC GT SCH ×2 (08:28→16:06)
[2020-04-09] MEDS: FERROUS SULFATE UDC 300 MG/5 ML UDC GT SCH ×2 (08:28→16:06)
[2020-04-09] MEDS: GABAPENTIN 300 MG CAPSULE GT SCH ×2 (08:29→16:06)
[2020-04-09] MEDS: MULTIVIT W/MINERALS 1 TAB TABLET GT SCH (08:29)
[2020-04-09] MEDS: FENOFIBRATE NANOCRYS (145 MG) 145 MG TABLET GT SCH (08:29)
[2020-04-09] MEDS: DAKINS QUARTER STRENGTH (0.125%) 480 ML BOTTLE TOP SCH ×2 (08:31→08:32)
[2020-04-09] MEDS: THERAHONEY GEL 1.5 OZ TUBE TP SCH (08:32)
[2020-04-09 12:00] VITALS: BP 112/60
--- NOTE | 2020-04-09 12:00 | NUR ---
daughter cali called and was provided with updates regarding pts current condition.
[2020-04-09] MEDS: LEVOFLOXACIN (250MG) 250 MG TABLET PO SCH (14:48)
[2020-04-09 16:00] VITALS: BP 119/58
--- NOTE | 2020-04-09 19:41 | NUR ---
RN CLOSING NOTES PT IN BED ASLEEP IN NO ACUTE SIGNS OF DISTRESS. HOB ELEVATED. A/O X 2-3 AND ABLE TO MOUTH WORDS, DENIES PAIN OR ANY DISCOMFORTS AT THIS TIME. PT IS VENT DEPENDENT, TOLERATING CURRENT SETTINGS WELL WITH NO S/S RESPIRATORY DISTRESS NOTED. TELE -MONITORING SHOWS READING OF SR WITH HR ON THE 90'S, IV ACCESS NOTED ON AIDAN PICC LINE INTACT AND PATENT. DRESSING CDI. G-TUBE IN PLACE AND PATENT, GT FEEDING OF GLUCERNA 1.2 RUNNING AT 60ML/HR, TOLERATING WELL. ASPIRATION PRECAUTIONS MAINTAINED. NO GASTRIC RESIDUALS NOTED. WOLFE CATH IN PLACE WITH CLEAR YELLOW URINE OUTPUT NOTED. FLEXI SEAL RECTAL TUBE IN PLACE WITH LIQUID TO SOFT BROWNISH YELLOWISH COLORED STOOL NOTED. ALL NEEDS MET AND ATTENDED. ALL DUE MEDS ADMINISTERED, NO ASE NOTED. KEPT CLEAN AND DRY. WOUND CARE TX DONE. SAFETY MEASURES IN PLACE: BED LOW AND LOCKED. SIDE RAILS UP X2. CALL LIGHT WITHIN REACH. ENSORSED TO PATHOLOGY SPECIALIST RN FOR JAMES.
--- NOTE | 2020-04-09 19:42 | NUR ---
RN PM OPENING NOTE NOTES REPORT RECIEVED FROM KELLY LAN. PT IN BED ALERT NO SIGNS OF DISTRESS. HOB ELEVATED. DENIES PAIN AT THIS TIME. PT IS VENT DEPENDENT, TOLERATING CURRENT SETTINGS WELL WITH NO S/S RESPIRATORY DISTRESS NOTED CONT POX ON SATURATION 94%. TELE -MONITORING SHOWS READING OF SR , IV ACCESS NOTED ON AIDAN PICC LINE INTACT. DRESSING CDI. G-TUBE FEEDING OF GLUCERNA 1.2 RUNNING AT 60ML/HR. ASPIRATION PRECAUTIONS IN PLACE BED UP AT 40 DEGREES. WOLFE CATH DRAINNG CLEAR YELLOW URINE. RECTAL TUBE FLEXI SEAL IN PLACE WITH LIQUID TO BROWNISH YELLOWISH COLORED STOOL DRAINING. SAFETY MEASURES IN PLACE: BED LOW AND LOCKED. SIDE RAILS UP X2. CALL LIGHT WITHIN REACH. WILL CONT TO MONITOR.
[2020-04-09] MEDS: ATORVASTATIN 40 MG TABLET GT SCH (22:39)
[2020-04-09] MEDS: QUETIAPINE FUMARATE 25 MG TABLET GT SCH (22:39)
[2020-04-09] MEDS: ENOXAPARIN SODIUM 40 MG/0.4 ML DISP.SYRIN SQ SCH (22:42)
[2020-04-10 00:19] VITALS: BP 111/61
[2020-04-10] MEDS: BLOOD SUGAR DIAGNOSTIC 1 EACH STRIP IN SCH ×4 (01:11→18:07)
[2020-04-10] MEDS: INSULIN REGULAR, HUMAN 100 UNIT/ML 3 ML VIAL SQ PRN ×4 (01:11→18:08)
[2020-04-10] MEDS: METOPROLOL TARTRATE 25 MG TABLET PO SCH ×4 (01:12→18:12)
[2020-04-10] MEDS: IPRATROPIUM NEB FS 0.5 MG/2.5 ML AMPUL.NEB NEB SCH ×4 (02:03→19:23)
[2020-04-10] MEDS: ALBUTEROL FS 2.5 MG/3 ML VIAL.NEB NEB SCH ×4 (02:03→19:23)
[2020-04-10 04:28] VITALS: BP 114/58
[2020-04-10] MEDS: ropiniROLE 0.5 MG TABLET GT SCH ×3 (06:10→22:32)
--- NOTE | 2020-04-10 07:00 | NUR ---
RADIO INTERFERENCE INVESTIGATOR OPENING NOTES RECEIVED PT AWAKE IN BED AT THIS TIME. PT AOX2-3. PT ABLE TO MOUTH WORDS. NO SOB NOTED, NO S/S OF ANY ACUTE DISTRESS NOTED. PT ON MECHANICAL VENT. VENT SETTINGS READ PORTEX #8, AC 16, TV 400, FIO2 40%, PEEP 5. PT ON EXTERNAL MAXILLOFACIAL PROSTHODONTIST READING SR IN THE 80S. NO S/O PAIN OR FACIAL GRIMACE NOTED AT THIS TIME. RESPIRATIONS ARE EVEN AND UNLABORED. AIDAN PICC LINE NOTED, INTACT, PATENT AND FLUSHING WELL. G-TUBE IN PLACE WITH NO RESIDUAL NOTED. WOLFE CATHETER IN PLACE, DRAINING TO GRAVITY, CLEAR YELLOW URINE OUTPUT. RECTAL TUBE NOTED WITH SOFT BROWN BM. ASPIRATION AND SAFETY PRECAUTION IN PLACE AND MAINTAINED AT ALL TIMES. BED IN LOWEST LOCKED POSITION, HOB ELEVATED, SIDE RAILS UP X 2, CALL LIGHT AND TABLE WITHIN REACH. WILL CONTINUE TO MONITOR.
[2020-04-10 07:25] LABS: BASOPHILS % (AUTO) 0.4 % (0.0-2.0); EOSINOPHILS % (AUTO) 3.4 % (0.0-6.0); HEMATOCRIT 25 % (33-45); LYMPHOCYTES # (AUTO) 1.9 /CMM (0.8-4.8); LYMPHOCYTES % (AUTO) 20.8 % (20.0-44.0); MEAN CORPUSCULAR HGB CONC 32 g/dl (31.0-36.0); MEAN CORPUSCULAR VOLUME 87 fL (82-100); MONOCYTES # (AUTO) 0.6 /CMM (0.1-1.30); MONOCYTES % (AUTO) 6.3 % (2.0-12.0); NEUTROPHILS # (AUTO) 6.2 /CMM (1.8-8.9); NEUTROPHILS % (AUTO) 69.1 % (43.0-81.0); PLATELET COUNT (AUTO) 327 /CMM (150-450); RED BLOOD CELL COUNT(AUTO) 2.91 MIL/uL (4.0-5.2)
[2020-04-10 08:00] VITALS: BP 110/66
[2020-04-10] MEDS: GLUCERNA 1.2 1,000 ML BOTTLE NG PRN (08:09)
[2020-04-10 08:31] LABS: CALCIUM, SERUM 8.8 mg/dL (8.5-10.1); CREATININE 1.1 mg/dL (0.6-1.3); POTASSIUM 4.4 mmol/L (3.5-5.1)
[2020-04-10] MEDS: GABAPENTIN 300 MG CAPSULE GT SCH ×2 (08:49→16:06)
[2020-04-10] MEDS: ASPIRIN 81 MG TAB.CHEW GT SCH (08:49)
[2020-04-10] MEDS: FERROUS SULFATE UDC 300 MG/5 ML UDC GT SCH ×2 (08:49→16:05)
[2020-04-10] MEDS: FENOFIBRATE NANOCRYS (145 MG) 145 MG TABLET GT SCH (08:49)
[2020-04-10] MEDS: MULTIVIT W/MINERALS 1 TAB TABLET GT SCH (08:50)
[2020-04-10] MEDS: FUROSEMIDE 20 MG TABLET PO SCH (08:50)
[2020-04-10] MEDS: PANTOPRAZOLE 40 MG/PACK PACK GT SCH (08:50)
[2020-04-10] MEDS: LEVETIRACETAM SOL (5 ML) 100 MG/ML UDC GT SCH ×2 (08:50→16:06)
[2020-04-10] MEDS: DAKINS QUARTER STRENGTH (0.125%) 480 ML BOTTLE TOP SCH ×2 (08:52→08:53)
[2020-04-10] MEDS: THERAHONEY GEL 1.5 OZ TUBE TP SCH (08:52)
--- NOTE | 2020-04-10 12:56 | NUR ---
PROSPER SULLIVAN's DAUGHTER CALLED AND WAS UPDATED. WILL CONTINUE TO MONITOR AND CONTINUE WITH PLAN OF CARE
[2020-04-10] MEDS: PROSOURCE / PROSTAT (PYXIS) 30 ML UDC GT SCH (15:40)
[2020-04-10] MEDS: LEVOFLOXACIN (250MG) 250 MG TABLET PO SCH (15:41)
[2020-04-10 16:00] VITALS: BP 123/68
[2020-04-10] MEDS ORDERED: SILVER NITRATE APPLICATOR 1 EA BOX TP SCH (18:00)
[2020-04-10] MEDS ORDERED: LIDOCAINE 1%-EPI 1:100,000 20 ML VIAL TP ONE (18:00)
--- NOTE | 2020-04-10 18:58 | NUR ---
DINING ROOM HELPER CLOSING NOTES PT RESTING IN BED AT THIS TIME. PT REMAINED STABLE THROUGHOUT SHIFT. ALL CARE, NEED, MEDICATIONS AND TREATMENT ADMINISTERED ANTICIPATED PER ORDER. PT KEPT CLEAN AND DRY. RECTAL TUBE OUTPUT MEASURED, EMPTIED AND CHARTED. TRACH TIE CHANGED AND TRACH CARE PROVIDED. PT SUCTIONED PRN. WOUND TREATMENT DONE. PT TOLERATED GTUBE FEEDING WITH NO RESIDUAL NOTED. WOLFE CATHETER CARE PROVIDED. PT REPOSITIONED Q2HRS AND PRN. ASPIRATION AND SAFETY PRECAUTION IN PLACE AND MAINTAINED AT ALL TIMES. BED IN LOWEST LOCKED POSITION, HOB ELEVATED, SIDE RAILS UP X 2, CALL LIGHT AND TABLE WITHIN REACH. WILL CONTINUE TO MONITOR.
--- NOTE | 2020-04-10 19:35 | NUR ---
TELERN ASLEEP,AT THIS TIME, VENT DEPENDENT. APPEARS COMFORTABLE. WOLFE TO GRAVITY AND FLEXI INTACT, WITH SCANTY AMOUNT LOOSE STOOLS. SR ON THE MONITOR. CLOSELY WATCHED. CONTINUED MONITORING.
--- NOTE | 2020-04-10 19:42 | NUR ---
ENDORSED TO FORMULATION SCIENTIST NURSE FOR JAMES
[2020-04-10 20:00] VITALS: BP 112/69
[2020-04-10] MEDS: QUETIAPINE FUMARATE 25 MG TABLET GT SCH (22:29)
[2020-04-10] MEDS: ATORVASTATIN 40 MG TABLET GT SCH (22:29)
[2020-04-10] MEDS: ENOXAPARIN SODIUM 40 MG/0.4 ML DISP.SYRIN SQ SCH (22:33)
--- NOTE | 2020-04-10 22:53 | NUR ---
TELERN FULLY AWAKE, ABLE TO MOUTHWORDS. STABLE AT THIS TIME. DUE MEDS ADMINISTERED VIA GT. NO RESIDUALS. TOLERATED GT FEEDINGS. REPOSITIONED PER PATIENT COMFORT, REMAINS SR ON THE MONITOR. CLOSELY WATCHED.
[2020-04-11] VITALS (7 sets, daily range): BP systolic 99–124; BP diastolic 46–76
[2020-04-11] MEDS: BLOOD SUGAR DIAGNOSTIC 1 EACH STRIP IN SCH ×4 (00:51→17:09)
[2020-04-11] MEDS: IPRATROPIUM NEB FS 0.5 MG/2.5 ML AMPUL.NEB NEB SCH ×4 (01:31→20:24)
[2020-04-11] MEDS: ALBUTEROL FS 2.5 MG/3 ML VIAL.NEB NEB SCH ×4 (01:31→20:24)
--- NOTE | 2020-04-11 02:20 | NUR ---
TELERN REMAINS UNCHANGED. GT FEEDINGS TOLERATED WELL.
[2020-04-11] MEDS: METOPROLOL TARTRATE 25 MG TABLET PO SCH ×4 (05:57→17:11)
[2020-04-11] MEDS: ropiniROLE 0.5 MG TABLET GT SCH ×3 (05:57→22:15)
[2020-04-11] MEDS: GLUCERNA 1.2 1,000 ML BOTTLE NG PRN (05:58)
[2020-04-11 06:12] LABS: BASOPHILS # (AUTO) 0.1 /CMM (0.0-0.2); BASOPHILS % (AUTO) 0.6 % (0.0-2.0); HEMATOCRIT 26 % (33-45); HEMOGLOBIN 8.3 g/dL (11.5-14.8); LYMPHOCYTES # (AUTO) 1.9 /CMM (0.8-4.8); LYMPHOCYTES % (AUTO) 21.7 % (20.0-44.0); MEAN CORPUSCULAR HGB CONC 32 g/dl (31.0-36.0); MEAN CORPUSCULAR VOLUME 86 fL (82-100); MONOCYTES # (AUTO) 0.5 /CMM (0.1-1.30); MONOCYTES % (AUTO) 6.1 % (2.0-12.0); NEUTROPHILS # (AUTO) 5.8 /CMM (1.8-8.9); NEUTROPHILS % (AUTO) 65.6 % (43.0-81.0); PLATELET COUNT (AUTO) 339 /CMM (150-450); RED BLOOD CELL COUNT(AUTO) 3.06 MIL/uL (4.0-5.2); WHITE BLOOD COUNT (AUTO) 8.8 K/uL (4.3-11.0)
[2020-04-11 06:13] LABS: CALCIUM, SERUM 8.8 mg/dL (8.5-10.1); CREATININE 1.1 mg/dL (0.6-1.3); POTASSIUM 4.4 mmol/L (3.5-5.1)
--- NOTE | 2020-04-11 06:40 | NUR ---
TELERN AM CARE DONE.
--- NOTE | 2020-04-11 07:30 | NUR ---
Tele/RN - Assessment Patient is awake, A/O x 2, mouth words, denies pain, afebrile, no active bleeding, not in any form of distress, trach and vent dependent with Portex 8 secured and intact, vent settings AC16, TV400, FiO2 40%, PEEP 5, tolerated well. Tele shows SR. Labs reviewed, no critical results. Will do wound treatment as ordered, repositioned per protocol. Pending transfer to higher level of care for PCI of the LAD to treat ischemic cardiomyopathy. Will continue with current medical management.
[2020-04-11] MEDS: INSULIN REGULAR, HUMAN 100 UNIT/ML 3 ML VIAL SQ PRN ×4 (07:33→17:14)
[2020-04-11] MEDS: FERROUS SULFATE UDC 300 MG/5 ML UDC GT SCH ×2 (08:17→16:23)
[2020-04-11] MEDS: GABAPENTIN 300 MG CAPSULE GT SCH ×2 (08:17→16:23)
[2020-04-11] MEDS: ASPIRIN 81 MG TAB.CHEW GT SCH (08:17)
[2020-04-11] MEDS: FENOFIBRATE NANOCRYS (145 MG) 145 MG TABLET GT SCH (08:17)
[2020-04-11] MEDS: LEVETIRACETAM SOL (5 ML) 100 MG/ML UDC GT SCH ×2 (08:17→16:23)
[2020-04-11] MEDS: PANTOPRAZOLE 40 MG/PACK PACK GT SCH (08:17)
[2020-04-11] MEDS: MULTIVIT W/MINERALS 1 TAB TABLET GT SCH (08:18)
[2020-04-11] MEDS: DAKINS QUARTER STRENGTH (0.125%) 480 ML BOTTLE TOP SCH ×2 (08:18→08:19)
[2020-04-11] MEDS: FUROSEMIDE 20 MG TABLET PO SCH (08:18)
[2020-04-11] MEDS: THERAHONEY GEL 1.5 OZ TUBE TP SCH (08:18)
[2020-04-11] MEDS: PROSOURCE / PROSTAT (PYXIS) 30 ML UDC GT SCH (08:19)
[2020-04-11] MEDS: LEVOFLOXACIN (250MG) 250 MG TABLET PO SCH (14:25)
--- NOTE | 2020-04-11 14:33 | NUR ---
Director Of Event Marketing Consult: Patient is a 69 year old female admitted to [facility] on 03/21/20. Patient is alert and oriented x2. Patient and SW discussed patient's wounds and patient is aware of these wounds. Patient was unable to maintain proper eye contact. Patient stated she was in pain and is unable to have a conversation at the moment. This SW gathered information from patient's daughter Marjorie ([phone]) who stated she currently resides at [facility]. Marjorie stated initially pt was from [facility] and was discharged to [facility]. Afterwards, per Marjorie, she stated pt was discharged to [address] [address]; ) who stated they did not notify Marjorie about pt's wound or her fever. Marjorie stated she does not want pt to return back to that facility and would want an alternative placement. This ad writer will notify case management to help family with placement. This SW notified [facility] case management to help daughter Marjorie ([phone]). SW will make report to jorge luis.
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
--- NOTE | 2020-04-11 18:20 | NUR ---
Tele/RN - End of shift summary No new events seen, tolerating vent settings well, remain afebrile, SR on the monitor. Spoke with daughter Marjorie ([phone]) and agreeable to do the cardiac procedure here at [facility] instead of transferring to other hospital. Dr. Fernandez aware and will perform the procedure. Patient is scheduled for sacral wound debridement tomorrow. Daughter Marjorie updated on plan of care and in agreement.
--- NOTE | 2020-04-11 19:40 | NUR ---
TELERN ASLEEP AT THIS TIME. VENT DEPENDENT. GT FEEDINGS A 60CC/HR, NO RESIDUALS. HOB 45 DEGREES. V/S STABLE, CONTINUED MONITORING.
[2020-04-11] MEDS: QUETIAPINE FUMARATE 25 MG TABLET GT SCH (22:15)
[2020-04-11] MEDS: ATORVASTATIN 40 MG TABLET GT SCH (22:16)
[2020-04-11] MEDS: ENOXAPARIN SODIUM 40 MG/0.4 ML DISP.SYRIN SQ SCH (22:17)
[2020-04-12] VITALS (7 sets, daily range): BP systolic 91–122; BP diastolic 51–73
[2020-04-12] MEDS: METOPROLOL TARTRATE 25 MG TABLET PO SCH ×4 (00:09→17:27)
[2020-04-12] MEDS: BLOOD SUGAR DIAGNOSTIC 1 EACH STRIP IN SCH ×4 (00:10→17:18)
[2020-04-12] MEDS: INSULIN REGULAR, HUMAN 100 UNIT/ML 3 ML VIAL SQ PRN ×3 (00:20→12:05)
--- NOTE | 2020-04-12 01:19 | NUR ---
telern remains unchanged. tolerated feedings, checked residuals less than 5cc. feedings continued. bs 209 covered with 4 units per sliding scale.
[2020-04-12] MEDS: IPRATROPIUM NEB FS 0.5 MG/2.5 ML AMPUL.NEB NEB SCH ×4 (01:34→20:20)
[2020-04-12] MEDS: ALBUTEROL FS 2.5 MG/3 ML VIAL.NEB NEB SCH ×4 (01:34→20:20)
--- NOTE | 2020-04-12 04:50 | NUR ---
TELERN EARLY AM CARE STARTED. AWAKE THIS TIME, TRYING TO COMMUNICATE. RECTAL TUBE SLIGHTLY LEAKING. GT FEEDING CONTINUED. NO RESIDUALS. REPOSITIONED FOR COMFORT. WOLFE STILL CLOUDY YELLOWISH [place].
[2020-04-12 05:59] LABS: BASOPHILS % (AUTO) 0.6 % (0.0-2.0); EOSINOPHILS % (AUTO) 6.1 % (0.0-6.0); HEMATOCRIT 26 % (33-45); HEMOGLOBIN 8.1 g/dL (11.5-14.8); LYMPHOCYTES # (AUTO) 1.9 /CMM (0.8-4.8); LYMPHOCYTES % (AUTO) 25.4 % (20.0-44.0); MEAN CORPUSCULAR HGB CONC 32 g/dl (31.0-36.0); MEAN CORPUSCULAR VOLUME 86 fL (82-100); MONOCYTES # (AUTO) 0.5 /CMM (0.1-1.30); MONOCYTES % (AUTO) 6.3 % (2.0-12.0); NEUTROPHILS # (AUTO) 4.7 /CMM (1.8-8.9); NEUTROPHILS % (AUTO) 61.6 % (43.0-81.0); PLATELET COUNT (AUTO) 320 /CMM (150-450); WHITE BLOOD COUNT (AUTO) 7.6 K/uL (4.3-11.0)
[2020-04-12 06:12] LABS: CALCIUM, SERUM 8.7 mg/dL (8.5-10.1); MAGNESIUM 2.1 mg/dL (1.8-2.4); PHOSPHORUS 4.1 mg/dL (2.5-4.9); POTASSIUM 4.2 mmol/L (3.5-5.1)
[2020-04-12] MEDS: ropiniROLE 0.5 MG TABLET GT SCH ×3 (06:38→21:47)
[2020-04-12] MEDS: GLUCERNA 1.2 1,000 ML BOTTLE NG PRN (06:45)
--- NOTE | 2020-04-12 06:50 | NUR ---
TELERN BS 162. ENDORSED TO INCOMING RN.
--- NOTE | 2020-04-12 08:00 | NUR ---
Tele/RN - Assessment Patient is awake, A/O x 2, mouth words, tele ST, denies pain, afebrile, no seizure activity, no active bleeding, not in any form of distress, trach and vent dependent with Portex 8 secured and intact, vent settings AC16, TV400, FiO2 40%, PEEP 5, tolerating well. Labs reviewed, no critical results. Wound treatment as ordered, repositioned per protocol. Patient for sacral wound debridement today. Plan for cardiac procedure, awaiting for orders from Dr. Fernandez. Will continue with current medical management.
[2020-04-12] MEDS: LEVETIRACETAM SOL (5 ML) 100 MG/ML UDC GT SCH ×2 (08:29→16:07)
[2020-04-12] MEDS: PANTOPRAZOLE 40 MG/PACK PACK GT SCH (08:29)
[2020-04-12] MEDS: FUROSEMIDE 20 MG TABLET PO SCH (08:29)
[2020-04-12] MEDS: PROSOURCE / PROSTAT (PYXIS) 30 ML UDC GT SCH (08:29)
[2020-04-12] MEDS: FENOFIBRATE NANOCRYS (145 MG) 145 MG TABLET GT SCH (08:29)
[2020-04-12] MEDS: ASPIRIN 81 MG TAB.CHEW GT SCH (08:29)
[2020-04-12] MEDS: MULTIVIT W/MINERALS 1 TAB TABLET GT SCH (08:29)
[2020-04-12] MEDS: GABAPENTIN 300 MG CAPSULE GT SCH ×2 (08:29→16:07)
[2020-04-12] MEDS: FERROUS SULFATE UDC 300 MG/5 ML UDC GT SCH ×2 (08:29→16:07)
[2020-04-12] MEDS: DAKINS QUARTER STRENGTH (0.125%) 480 ML BOTTLE TOP SCH ×2 (08:30→08:31)
[2020-04-12] MEDS: THERAHONEY GEL 1.5 OZ TUBE TP SCH (08:31)
[2020-04-12 10:59] LABS: EOSINOPHILS % (MANUAL) 9 % (0-4); LYMPHOCYTES % (MANUAL) 22 % (16-48); MONOCYTES % (MANUAL) 4 % (0-11.0); NEUTROPHILS % (MANUAL) 65 (42-76)
[2020-04-12] MEDS: LEVOFLOXACIN (250MG) 250 MG TABLET PO SCH (15:04)
--- NOTE | 2020-04-12 18:07 | NUR ---
Tele/RN - End of shift summary No significant change in condition, tolerating vent settings well, remain afebrile, SR-ST on the monitor, s/p sacral wound debridement today measuring 8.9 cm x 3.0 cm x 0.9 cm. Mendez catheter draining well, flexiseal in place. Awaiting for orders from Dr. Fernandez for cardiac intervention. Daughter Marjorie updated on plan of care. Will continue with current medical management.
--- NOTE | 2020-04-12 19:00 | NUR ---
RN OPENING NOTES Received patient resting on bed, with current vent settings tolerated well, no respiratory distress noted. With GTF as ordered, tolerated well. On tele monitor with NSR noted. Kept on bed clean, dry and comfortable. Will continue to monitor accordingly.
[2020-04-12] MEDS: QUETIAPINE FUMARATE 25 MG TABLET GT SCH (21:48)
[2020-04-12] MEDS: ATORVASTATIN 40 MG TABLET GT SCH (21:48)
[2020-04-12] MEDS: ENOXAPARIN SODIUM 40 MG/0.4 ML DISP.SYRIN SQ SCH (21:49)
[2020-04-13] VITALS (29 sets, daily range): BP systolic 70–141; BP diastolic 35–79
[2020-04-13] MEDS: BLOOD SUGAR DIAGNOSTIC 1 EACH STRIP IN SCH ×4 (00:49→17:13)
[2020-04-13] MEDS: INSULIN REGULAR, HUMAN 100 UNIT/ML 3 ML VIAL SQ PRN ×4 (00:51→17:30)
[2020-04-13] MEDS: METOPROLOL TARTRATE 25 MG TABLET PO SCH ×4 (01:26→17:13)
[2020-04-13] MEDS: IPRATROPIUM NEB FS 0.5 MG/2.5 ML AMPUL.NEB NEB SCH ×4 (01:54→21:02)
[2020-04-13] MEDS: ALBUTEROL FS 2.5 MG/3 ML VIAL.NEB NEB SCH ×4 (01:54→21:02)
[2020-04-13] MEDS: GLUCERNA 1.2 1,000 ML BOTTLE NG PRN (02:45)
[2020-04-13] MEDS: ropiniROLE 0.5 MG TABLET GT SCH ×3 (05:31→21:00)
[2020-04-13 06:00] LABS: BASOPHILS % (AUTO) 0.4 % (0.0-2.0); EOSINOPHILS % (AUTO) 4.7 % (0.0-6.0); HEMATOCRIT 25 % (33-45); HEMOGLOBIN 7.8 g/dL (11.5-14.8); LYMPHOCYTES # (AUTO) 2.2 /CMM (0.8-4.8); LYMPHOCYTES % (AUTO) 24.2 % (20.0-44.0); MEAN CORPUSCULAR HGB CONC 32 g/dl (31.0-36.0); MEAN CORPUSCULAR VOLUME 87 fL (82-100); MONOCYTES # (AUTO) 0.6 /CMM (0.1-1.30); MONOCYTES % (AUTO) 6.6 % (2.0-12.0); NEUTROPHILS # (AUTO) 5.8 /CMM (1.8-8.9); NEUTROPHILS % (AUTO) 64.1 % (43.0-81.0); PLATELET COUNT (AUTO) 318 /CMM (150-450); RED BLOOD CELL COUNT(AUTO) 2.82 MIL/uL (4.0-5.2)
[2020-04-13 06:05] LABS: CALCIUM, SERUM 8.6 mg/dL (8.5-10.1); MAGNESIUM 2.2 mg/dL (1.8-2.4); PHOSPHORUS 3.9 mg/dL (2.5-4.9); POTASSIUM 4.4 mmol/L (3.5-5.1)
--- NOTE | 2020-04-13 06:39 | NUR ---
RN CLOSING NOTES Pt asleep, no new unusalities noted. All nursing needs attended, due meds given as ordered. Kept on bed clean, dry and comfortable. Endorsed.
--- NOTE | 2020-04-13 07:30 | NUR ---
ms rn received on bed, awake,alert,oriented x2,not in any form of distress, respirations even and unlabored,no sob noted, lungs are diminished,abdomen soft,positive bowel sounds,denies pain at this time,all needs attended.
[2020-04-13] MEDS: FUROSEMIDE 20 MG TABLET PO SCH (07:50)
[2020-04-13] MEDS: PANTOPRAZOLE 40 MG/PACK PACK GT SCH (07:51)
[2020-04-13] MEDS: FERROUS SULFATE UDC 300 MG/5 ML UDC GT SCH ×2 (07:51→17:13)
[2020-04-13] MEDS: GABAPENTIN 300 MG CAPSULE GT SCH ×2 (07:51→17:13)
[2020-04-13] MEDS: FENOFIBRATE NANOCRYS (145 MG) 145 MG TABLET GT SCH (07:51)
[2020-04-13] MEDS: MULTIVIT W/MINERALS 1 TAB TABLET GT SCH (07:51)
[2020-04-13] MEDS: ASPIRIN 81 MG TAB.CHEW GT SCH (07:52)
[2020-04-13] MEDS: PROSOURCE / PROSTAT (PYXIS) 30 ML UDC GT SCH (07:52)
[2020-04-13] MEDS: LEVETIRACETAM SOL (5 ML) 100 MG/ML UDC GT SCH ×2 (07:52→17:13)
[2020-04-13] MEDS: DAKINS QUARTER STRENGTH (0.125%) 480 ML BOTTLE TOP SCH ×2 (09:00→13:31)
--- NOTE | 2020-04-13 09:00 | NUR ---
ms nichols due meds given via g tube,tolerated well,will monitor patient.
--- NOTE | 2020-04-13 10:00 | NUR ---
ms rn received a call from dr. cuevas, asking if daughter agree w/ cardiac procedure.
--- NOTE | 2020-04-13 11:00 | NUR ---
ms rn called daughter,consent obtained, made aware, patient npo at this time.
--- NOTE | 2020-04-13 11:30 | NUR ---
ms rn patient ready for heart procedure,all needs attended.
[2020-04-13] MEDS ORDERED: IV SET PRIMARY PUMP SET 1 EA INFUS.SET MC ONE ×2 (12:16→14:44)
[2020-04-13] MEDS ORDERED: IV NS 0.9% 1,000 ML ONE (12:16)
[2020-04-13] MEDS ORDERED: LIDOCAINE HCL/MPF 1% 30 ML VIAL IJ ONE (12:17)
[2020-04-13] MEDS ORDERED: IODIXANOL 0 ML IV ONE (12:17)
--- NOTE | 2020-04-13 13:20 | NUR ---
ms rn patient went down for procedure,all needs attended.
[2020-04-13] MEDS: THERAHONEY GEL 1.5 OZ TUBE TP SCH (13:31)
[2020-04-13] MEDS ORDERED: IODIXANOL 320MG/ML 50 ML IV ONE (13:47)
[2020-04-13] MEDS ORDERED: FENTANYL PF 100MCG/2ML AMPUL ONE (13:47)
[2020-04-13] MEDS ORDERED: MIDAZOLAM HCL 2 MG/2ML VIAL ONE (13:48)
[2020-04-13] MEDS ORDERED: IODIXANOL 150 ML IV ONE ×2 (13:55→14:01)
[2020-04-13] MEDS ORDERED: IV NS 0.9% 500 ML IV ONE (14:19)
[2020-04-13] MEDS ORDERED: HEPARIN SODIUM, PORCINE 1,000 UNIT/ML VIAL ONE (14:34)
[2020-04-13] MEDS ORDERED: HEPARIN SODIUM, PORCINE 5000 UNITS/1 ML VIAL ONE (14:34)
[2020-04-13] MEDS ORDERED: NOREPINEPHRINE 4 MG/4 ML AMPUL IV ONE (14:41)
[2020-04-13] MEDS ORDERED: IV NS 0.9% 250 ML IV ONE (14:42)
--- NOTE | 2020-04-13 14:55 | NUR ---
rt note Rapid response call due to patient spo2 dropping down to 60%. pt suctioned with moderate bloody secretions. fio2 increased to 100%. patient spo2 returns to normal.
[2020-04-13] MEDS ORDERED: FUROSEMIDE 100 MG/10 ML VIAL ONE (14:59)
[2020-04-13] MEDS ORDERED: TICAGRELOR 90 MG TABLET PO ONE (15:44)
[2020-04-13] MEDS ORDERED: ASPIRIN 81 MG TAB.CHEW ONE (15:45)
--- NOTE | 2020-04-13 16:45 | NUR ---
ICU/RN: RECEIVED PT FROM CASE MANAGEMENT DIRECTOR S/P CARDIAC CATHETERIZATION. PT TRACH TO VENT WITH SETTINGS ORDERED FROM MD, NO ACUTE DISTRESS NOTED. SINUS ON TELE. PULSES PRESENT AND PALPABLE. LEFT AND RIGHT FEMORAL ACCESS, DRESSING C/D/I, NO S/S OF BLEEDING NOTED. PT OPENS EYES, FOLLOWS SOME SIMPLE COMMANDS, WILL CONTINUE TO MONITOR AND ASSESS.
[2020-04-13] MEDS ORDERED: IV NS 0.9% 1,000 ML IV ONE (17:00)
--- NOTE | 2020-04-13 17:00 | NUR ---
ms rn patient won't be back to the unit, report given to Arpi-agricultural extension agent
[2020-04-13] MEDS: LEVOFLOXACIN (250MG) 250 MG TABLET PO SCH (17:14)
--- NOTE | 2020-04-13 18:20 | NUR ---
ICU/RN: SBP 70'S, DR LEY NOTIFIED. ORDERS FOR STAT EKG RECEIVED, LEVOPHED ORDERED. WILL START TO SUPPORT BP.
[2020-04-13] MEDS: NOREPINEPHRINE 8 MG in IV NS 0.9% 242 ML IV PRN (19:02)
--- NOTE | 2020-04-13 19:19 | NUR ---
ICU/RN: ENDING NOTES,A REPORT ENDORSED TO NIGHT NURSE FOR JAMES. PT TRACH TO VENT WITH SETTINGS ORDERED, NO ACUTE DISTRESS NOTED. PT STARTED ON LEVO FOR BP SUPPORT. TUBE FEEDING STARTED VIA GTUBE. LEFT/RIGHT FEMORAL SITE CLEAN AND DRY, NO S/S OF BLEEDING NOTED, PULSES PRESENT AND PALPABLE. ALL NEEDS ATTENDED TO, SAFETY MEASURES TAKEN, BED IN LOW POSITION, SIDE RAILS UP, CALL LIGHT WITHIN REACH.
--- NOTE | 2020-04-13 19:30 | NUR ---
PIER RUNNER RCD PT S/P PTCA AND STENT; PT IS ALERT AND ABLE TO MOUTH WORDS. VENT ADJUSTMENTS TO BE MADE FOR AC 16 450 80% +5; PT HAS PORTEX 8. PT HAS GLUCRENA @ 60 ML/HR VIA G TUBE. FLEXI SEAL WITH BROWN LIQUID STOOL. WOLFE DRAINING CLOUDY YELLOW URINE. SACRAL DECUB W/MEPILEX IN PLACE. AIDAN PICC PATENT W/GOOD BLOOD RETURN.
--- NOTE | 2020-04-13 19:45 | NUR ---
TASSEL CLIPPER TITRATED LEVOPHED OFF PER PROTOCOL. CONTINUE TO MONITOR.
[2020-04-13] MEDS: ENOXAPARIN SODIUM 40 MG/0.4 ML DISP.SYRIN SQ SCH (21:27)
[2020-04-13] MEDS: ATORVASTATIN 40 MG TABLET GT SCH (21:27)
[2020-04-13] MEDS: QUETIAPINE FUMARATE 25 MG TABLET GT SCH (21:28)
[2020-04-13 21:35] LABS: ABG BASE EXCESS 3.9 mmol/L; ABG OXYGEN SATURATION 97.2 % (92.0-98.5); ABG PCO2 47.7 mmHg (35.0-45.0); ABG PH 7.404 (7.350-7.450); ABG PO2 96.1 mmHg (75.0-100.0); AaDO2 424.2 mmHg; COHb 0.3 % (0.5-1.5); MetHb 0.2 % (0.0-1.5); O2Hb 96.7 % (94.0-97.0); PEEP,BG 5 cm H2O; SITE, ABG Right Radial; VENT MODE, BG AC 16 450 80% +5; VT, ABG 450 mL
--- NOTE | 2020-04-13 23:00 | NUR ---
RT NOTE PT TRACHED ON [facility] VENT ON AC MODE SETTINGS CHARTED. PT SX'D FOR MOD AMT OF BLOODY SECRETIONS. ALARMS ARE SET AND AUDIBLE. VENT PLUGGED INTO RED OUTLET. AMBU BAG BEDSIDE. WILL CONTINUE TO MONITOR CLOSELY. Addendum: 04/13/20 at 2301 by KENDAL GUILLEN RT Amended: Links added.
[2020-04-14] VITALS (52 sets, daily range): BP systolic 69–153; BP diastolic 41–104
--- NOTE | 2020-04-14 | NUR ---
TRAINING PROFESSIONAL RESTARTED LEVOPHED PER PROTOCOL FOR BP 78/46.
[2020-04-14] MEDS: BLOOD SUGAR DIAGNOSTIC 1 EACH STRIP IN SCH ×5 (00:35→23:40)
[2020-04-14] MEDS: INSULIN REGULAR, HUMAN 100 UNIT/ML 3 ML VIAL SQ PRN ×5 (00:41→23:42)
[2020-04-14] MEDS ORDERED: ropiniROLE 0.5 MG TABLET ONE (00:55)
[2020-04-14] MEDS: ropiniROLE 0.5 MG TABLET GT SCH ×4 (01:02→21:14)
[2020-04-14] MEDS: IPRATROPIUM NEB FS 0.5 MG/2.5 ML AMPUL.NEB NEB SCH ×4 (01:26→19:38)
[2020-04-14] MEDS: ALBUTEROL FS 2.5 MG/3 ML VIAL.NEB NEB SCH ×4 (01:27→19:38)
[2020-04-14 05:02] LABS: BASOPHILS % (AUTO) 0.3 % (0.0-2.0); EOSINOPHILS % (AUTO) 1.2 % (0.0-6.0); HEMATOCRIT 24 % (33-45); HEMOGLOBIN 7.5 g/dL (11.5-14.8); LYMPHOCYTES # (AUTO) 2.5 /CMM (0.8-4.8); LYMPHOCYTES % (AUTO) 18.3 % (20.0-44.0); MEAN CORPUSCULAR HGB CONC 32 g/dl (31.0-36.0); MEAN CORPUSCULAR VOLUME 85 fL (82-100); MONOCYTES # (AUTO) 0.8 /CMM (0.1-1.30); MONOCYTES % (AUTO) 6.2 % (2.0-12.0); NEUTROPHILS # (AUTO) 10.1 /CMM (1.8-8.9); PLATELET COUNT (AUTO) 395 /CMM (150-450); WHITE BLOOD COUNT (AUTO) 13.6 K/uL (4.3-11.0)
[2020-04-14] MEDS: METOPROLOL TARTRATE 25 MG TABLET PO SCH ×4 (05:02→18:00)
[2020-04-14 05:06] LABS: CALCIUM, SERUM 8.6 mg/dL (8.5-10.1); CREATININE 1.3 mg/dL (0.6-1.3); PHOSPHORUS 4.8 mg/dL (2.5-4.9); POTASSIUM 4.3 mmol/L (3.5-5.1)
--- NOTE | 2020-04-14 06:33 | NUR ---
MOLD REPAIRER LOPRESSOR NOT GIVEN PT IS ON LEVOPHED.
--- NOTE | 2020-04-14 07:51 | NUR ---
PT RECEIVED IN BED, ON PRESCRIBED VENT TRACH SETTINGS PORTEX 8, AC 16, TV 450, FIO02 60%, PEEP 5. NO RESPIRATORY DISTRESS OR SOB. PT IS ALERT, ABLE TO MOUTH WORDS. PT ON MONITOR SHOWING NSR. PT HAS FLEXISEAL AND WOLFE CATH IN PLACE. PT HAS GLUCERNA RUNNING AT 60 ML/HR. PT HAS AIDAN PICC RUNNING NS TKO AND LEVO AT 0.1 MCG/KG/MIN. PT BP 123/65. PT HAS SACRAL WOUND TREATMENT TO BE RE-EVALUATED ENDORSED BY PREVIOUS RN. ENDORSED TO ART CONSERVATOR TAMAR. BED IN LOCKED LOWEST POSITION, ALL SAFETY MEASURES IN PLACE. WILL CONTINUE TO MONITOR CLOSELY
[2020-04-14] MEDS: MULTIVIT W/MINERALS 1 TAB TABLET GT SCH (08:37)
[2020-04-14] MEDS: FERROUS SULFATE UDC 300 MG/5 ML UDC GT SCH ×2 (08:37→16:08)
[2020-04-14] MEDS: FENOFIBRATE NANOCRYS (145 MG) 145 MG TABLET GT SCH (08:37)
[2020-04-14] MEDS: PANTOPRAZOLE 40 MG/PACK PACK GT SCH (08:38)
[2020-04-14] MEDS: FUROSEMIDE 20 MG TABLET PO SCH (08:38)
[2020-04-14] MEDS: LEVETIRACETAM SOL (5 ML) 100 MG/ML UDC GT SCH ×2 (08:38→16:09)
[2020-04-14] MEDS: GABAPENTIN 300 MG CAPSULE GT SCH ×2 (08:38→16:09)
[2020-04-14] MEDS: ASPIRIN 81 MG TAB.CHEW GT SCH (08:39)
[2020-04-14] MEDS: TICAGRELOR 90 MG TABLET PO SCH ×2 (08:42→16:11)
[2020-04-14] MEDS: PROSOURCE / PROSTAT (PYXIS) 30 ML UDC GT SCH (08:56)
[2020-04-14] MEDS: DAKINS QUARTER STRENGTH (0.125%) 480 ML BOTTLE TOP SCH ×2 (09:00)
--- NOTE | 2020-04-14 09:37 | NUR ---
PER MD PELEG, FIO2 TITRATED FROM 60% TO 40%. PT O2 SAT 90%, RT AWARE
[2020-04-14] MEDS: NOREPINEPHRINE 8 MG in IV NS 0.9% 242 ML IV PRN (10:00)
[2020-04-14] MEDS: THERAHONEY GEL 1.5 OZ TUBE TP SCH (10:21)
--- NOTE | 2020-04-14 12:26 | NUR ---
NON-ADMIN LOPRESSOR, PT ON LEVOPHED
[2020-04-14] MEDS: GLUCERNA 1.2 1,000 ML BOTTLE NG PRN (12:52)
--- NOTE | 2020-04-14 13:00 | NUR ---
PER DESMOND IVEY TO HOLD LEVO. PT BP 119/64, MAP > 65
--- NOTE | 2020-04-14 13:30 | NUR ---
LEVO RESTARTED AT 0.05 MC/KG/MIN. BP 88/46, MAP 64
[2020-04-14] MEDS: FUROSEMIDE 20 MG/2 ML VIAL IV SCH ×2 (14:58→16:09)
[2020-04-14] MEDS: LEVOFLOXACIN (250MG) 250 MG TABLET PO SCH (16:09)
--- NOTE | 2020-04-14 18:00 | NUR ---
BS 406, 10 U INSULIN ADMIN, MD EDWARD SHERMAN AWARE
--- NOTE | 2020-04-14 19:00 | NUR ---
BASS SINGER LEVOPHED TITRATED OFF/ CONTINUE TO MONITOR. NO ACTIVE BLEEDING.
--- NOTE | 2020-04-14 19:10 | NUR ---
PT REMAINS IN BED, ALERT AND ABLE TO MOUTH WORDS. PT ON PRESCRIBED PORTEX 8, AC 16, TV 450, FIO2 60%, PEEP 5. NO RESPIRATORY DISTRESS OR SOB. PT ON MONITOR SHOWING SR/ST. PT HAS FLEXISEAL RECTAL TUBE, 100 ML OUTPUT THIS SHIFT. WOLFE CATH IN PLACE DRAINING YELLOW CLEAR URINE. SACRAL WOUND TX COMPLETED ORDERED. GLUCERNA RUNNING IN G-TUBE AT 60 ML/HR, MINIMAL RESIDUAL. AIDAN PICC IN PLACE, NO SIGNS OF INFECTION OR INFILTRATION RUNNING LEVO AT 0.05 MCG/KG/MIN. BED IN LOCKED LOWEST POSITION, ALL SAFETY MEASURES IN PLACE. REPORT GIVEN TO ONCOMING RN FOR JAMES
[2020-04-14] MEDS: QUETIAPINE FUMARATE 25 MG TABLET GT SCH (21:14)
[2020-04-14] MEDS: ATORVASTATIN 40 MG TABLET GT SCH (21:14)
[2020-04-14] MEDS: ENOXAPARIN SODIUM 40 MG/0.4 ML DISP.SYRIN SQ SCH (21:15)
[2020-04-15] VITALS (44 sets, daily range): BP systolic 92–134; BP diastolic 31–97
[2020-04-15] MEDS: ALBUTEROL FS 2.5 MG/3 ML VIAL.NEB NEB SCH ×4 (01:12→19:19)
[2020-04-15] MEDS: IPRATROPIUM NEB FS 0.5 MG/2.5 ML AMPUL.NEB NEB SCH ×4 (01:12→19:19)
--- NOTE | 2020-04-15 05:26 | NUR ---
SPACE PLANNER NON ADMIN LOPRESSOR BP DROPS TO 80-90. CONTINUE TO MONITOR.
[2020-04-15] MEDS: METOPROLOL TARTRATE 25 MG TABLET PO SCH ×4 (05:31→17:07)
[2020-04-15] MEDS: ropiniROLE 0.5 MG TABLET GT SCH ×3 (05:36→21:23)
[2020-04-15] MEDS: BLOOD SUGAR DIAGNOSTIC 1 EACH STRIP IN SCH ×3 (05:37→17:41)
[2020-04-15 05:39] LABS: BASOPHILS % (AUTO) 0.3 % (0.0-2.0); EOSINOPHILS % (AUTO) 1.4 % (0.0-6.0); LYMPHOCYTES # (AUTO) 1.5 /CMM (0.8-4.8); LYMPHOCYTES % (AUTO) 16.9 % (20.0-44.0); MEAN CORPUSCULAR HGB CONC 33 g/dl (31.0-36.0); MEAN CORPUSCULAR VOLUME 84 fL (82-100); MONOCYTES # (AUTO) 0.5 /CMM (0.1-1.30); MONOCYTES % (AUTO) 6.1 % (2.0-12.0); NEUTROPHILS # (AUTO) 6.6 /CMM (1.8-8.9); NEUTROPHILS % (AUTO) 75.3 % (43.0-81.0); PLATELET COUNT (AUTO) 307 /CMM (150-450); RED BLOOD CELL COUNT(AUTO) 2.38 MIL/uL (4.0-5.2); WHITE BLOOD COUNT (AUTO) 8.8 K/uL (4.3-11.0)
[2020-04-15 05:53] LABS: HEMATOCRIT 20 % (33-45)
[2020-04-15 05:55] LABS: HEMOGLOBIN 6.6 g/dL (11.5-14.8)
[2020-04-15 05:59] LABS: ALBUMIN 2.1 g/dL (3.4-5.0); BILIRUBIN,TOTAL 0.4 mg/dL (0.2-1.0); CALCIUM, SERUM 8.5 mg/dL (8.5-10.1); CREATININE 1.4 mg/dL (0.6-1.3); PHOSPHORUS 3.4 mg/dL (2.5-4.9); POTASSIUM 3.4 mmol/L (3.5-5.1); TOTAL PROTEIN, SERUM 6.6 g/dL (6.4-8.2)
[2020-04-15] MEDS: INSULIN REGULAR, HUMAN 100 UNIT/ML 3 ML VIAL SQ PRN ×3 (06:22→17:41)
--- NOTE | 2020-04-15 06:43 | NUR ---
CONCRETE PRECAST MOULDER HG 6.6 ONE UNIT PRBC ORDERED. NO ACTIVE S/O BLEEDING. CONTINUE TO MONITOR. PRBC NOT READY AT THIS TIME.
--- NOTE | 2020-04-15 08:13 | NUR ---
received pt from night supervisor, alert, confused, follows commands at times, ST, T/V, sat well on 50% fio2, GT to feeding tolerates well, f/c OK output, v/s stable, no pain, pt turned and repositioned. one unit PRBCs will be transfused for H/H
[2020-04-15] MEDS: PROSOURCE / PROSTAT (PYXIS) 30 ML UDC GT SCH (09:21)
[2020-04-15] MEDS: DAKINS QUARTER STRENGTH (0.125%) 480 ML BOTTLE TOP SCH ×2 (09:21→09:22)
[2020-04-15] MEDS: THERAHONEY GEL 1.5 OZ TUBE TP SCH (09:22)
[2020-04-15] MEDS: FENOFIBRATE NANOCRYS (145 MG) 145 MG TABLET GT SCH (09:27)
[2020-04-15] MEDS: PANTOPRAZOLE 40 MG/PACK PACK GT SCH (09:27)
[2020-04-15] MEDS: FUROSEMIDE 20 MG/2 ML VIAL IV SCH ×2 (09:27→17:06)
[2020-04-15] MEDS: FERROUS SULFATE UDC 300 MG/5 ML UDC GT SCH ×2 (09:27→17:06)
[2020-04-15] MEDS: ASPIRIN 81 MG TAB.CHEW GT SCH (09:27)
[2020-04-15] MEDS: MULTIVIT W/MINERALS 1 TAB TABLET GT SCH (09:27)
[2020-04-15] MEDS: GABAPENTIN 300 MG CAPSULE GT SCH ×2 (09:28→17:07)
[2020-04-15] MEDS: LEVETIRACETAM SOL (5 ML) 100 MG/ML UDC GT SCH ×2 (09:28→17:06)
[2020-04-15] MEDS: TICAGRELOR 90 MG TABLET PO SCH ×2 (09:31→17:08)
[2020-04-15] MEDS ORDERED: POTASSIUM CHLORIDE 20 MEQ POWDER PACKET NG SCH (10:00)
[2020-04-15 10:46] LABS: IRON, SERUM 48 ug/dl (50-175); TOTAL IRON BINDING CAPACITY 237 ug/dl (250-450)
[2020-04-15] MEDS: LEVOFLOXACIN (250MG) 250 MG TABLET PO SCH (14:17)
[2020-04-15 14:45] LABS: BAND % (MANUAL) 1 % (0.0-5.0); LYMPHOCYTES % (MANUAL) 16 % (16-48); MONOCYTES % (MANUAL) 7 % (0-11.0); NEUTROPHILS % (MANUAL) 76 (42-76)
[2020-04-15 16:21] LABS: FERRITIN 833 ng/mL (8-388)
--- NOTE | 2020-04-15 16:32 | NUR ---
pt is resting in the bed, alert, follows simple commands, SR, sat well on 50% fi02, GT to feeding tolerates well, f/c OK output, rectal tube intact, one unit PRBCs transfused, v/s stable, no pain, pt cleaned, changed and repositioned.
[2020-04-15] MEDS: ATORVASTATIN 40 MG TABLET GT SCH (21:23)
[2020-04-15] MEDS: QUETIAPINE FUMARATE 25 MG TABLET GT SCH (21:23)
[2020-04-15] MEDS: ENOXAPARIN SODIUM 40 MG/0.4 ML DISP.SYRIN SQ SCH (21:24)
[2020-04-16] VITALS (34 sets, daily range): BP systolic 87–144; BP diastolic 45–91
[2020-04-16] MEDS: INSULIN REGULAR, HUMAN 100 UNIT/ML 3 ML VIAL SQ PRN ×4 (00:05→17:49)
[2020-04-16] MEDS: BLOOD SUGAR DIAGNOSTIC 1 EACH STRIP IN SCH ×4 (00:07→16:59)
[2020-04-16] MEDS: IPRATROPIUM NEB FS 0.5 MG/2.5 ML AMPUL.NEB NEB SCH ×4 (00:57→19:41)
[2020-04-16] MEDS: ALBUTEROL FS 2.5 MG/3 ML VIAL.NEB NEB SCH ×4 (00:57→19:41)
[2020-04-16 05:24] LABS: CALCIUM, SERUM 8.5 mg/dL (8.5-10.1); CREATININE 1.3 mg/dL (0.6-1.3); POTASSIUM 4.3 mmol/L (3.5-5.1)
[2020-04-16 05:26] LABS: MAGNESIUM 2.2 mg/dL (1.8-2.4); PHOSPHORUS 3.1 mg/dL (2.5-4.9)
[2020-04-16] MEDS: ropiniROLE 0.5 MG TABLET GT SCH ×3 (05:26→21:46)
--- NOTE | 2020-04-16 05:26 | NUR ---
RN NOTE MEDICATION SCANNER NOT WORKING IN 3 COMPUTERS. MEDICATIONS AND GTF NOT SCANNED
[2020-04-16] MEDS: GLUCERNA 1.2 1,000 ML BOTTLE NG PRN ×2 (05:27→17:55)
[2020-04-16] MEDS: METOPROLOL TARTRATE 25 MG TABLET PO SCH ×4 (06:00→17:52)
--- NOTE | 2020-04-16 07:29 | NUR ---
RN NPTE PT REMAINS IN BED, ALERT AND ABLE TO MOUTH WORDS. PT TOLERATING CURRENT VENT SETTINGS. NO RESPIRATORY DISTRESS OR SOB. PT ON MONITOR SHOWING SR/ST. PT HAS FLEXISEAL RECTAL TUBE, 150 ML OUTPUT THIS SHIFT. WOLFE CATH IN PLACE DRAINING YELLOW CLEAR URINE. SACRAL WOUND TX COMPLETED ORDERED. GLUCERNA RUNNING IN G-TUBE AT 60 ML/HR, MINIMAL RESIDUAL. AIDAN PICC IN PLACE, NO SIGNS OF INFECTION OR INFILTRATION RUNNING. BED LOCKED AND IN THE LOWEST POSITION, ALL SAFETY MEASURES IN PLACE. REPORT GIVEN TO ONCOMING RN FOR JAMES
--- NOTE | 2020-04-16 08:00 | NUR ---
RN NOTES RECEIVED PATIENT TRACHEA /VENT DEPENDENT, PATIENT AWAKE, FOLLOW, COMMAND, GTF PLACEMENT, AND RESIDUAL, WOLFE DRAINING LIGHT YELLOW OUTPUT. RECTAL TUBE INTACT, DRESSING CHANGED, ASSIST TURN AND REPOSTION Q2HR. PATIENT TOLERATED GLUCERNA 60CC/HR WELL. KEEP HOB ELEVATED FOR ASPIRATION PRECAUTION, SIDE RAIL UP X3, WILL FOLLOW MONITORING.
[2020-04-16 10:20] LABS: BASOPHILS % (AUTO) 0.2 % (0.0-2.0); EOSINOPHILS % (AUTO) 2.8 % (0.0-6.0); HEMATOCRIT 28 % (33-45); HEMOGLOBIN 8.7 g/dL (11.5-14.8); LYMPHOCYTES # (AUTO) 1.8 /CMM (0.8-4.8); LYMPHOCYTES % (AUTO) 14.6 % (20.0-44.0); MEAN CORPUSCULAR HGB CONC 31 g/dl (31.0-36.0); MEAN CORPUSCULAR VOLUME 87 fL (82-100); MONOCYTES # (AUTO) 0.6 /CMM (0.1-1.30); MONOCYTES % (AUTO) 5.1 % (2.0-12.0); NEUTROPHILS # (AUTO) 9.4 /CMM (1.8-8.9); NEUTROPHILS % (AUTO) 77.3 % (43.0-81.0); PLATELET COUNT (AUTO) 325 /CMM (150-450); WHITE BLOOD COUNT (AUTO) 12.2 K/uL (4.3-11.0)
[2020-04-16 10:29] LABS: CREATININE 1.4 mg/dL (0.6-1.3); POTASSIUM 4.4 mmol/L (3.5-5.1)
[2020-04-16 10:43] LABS: BILIRUBIN,TOTAL 0.5 mg/dL (0.2-1.0); PHOSPHORUS 3.2 mg/dL (2.5-4.9)
[2020-04-16 10:44] LABS: ALBUMIN 2.3 g/dL (3.4-5.0); MAGNESIUM 2.2 mg/dL (1.8-2.4); TOTAL PROTEIN, SERUM 7.1 g/dL (6.4-8.2)
[2020-04-16] MEDS: TICAGRELOR 90 MG TABLET PO SCH ×2 (10:44→17:48)
[2020-04-16] MEDS: ASPIRIN 81 MG TAB.CHEW GT SCH (10:50)
[2020-04-16] MEDS: MULTIVIT W/MINERALS 1 TAB TABLET GT SCH (10:50)
[2020-04-16] MEDS: PANTOPRAZOLE 40 MG/PACK PACK GT SCH (10:50)
[2020-04-16] MEDS: FERROUS SULFATE UDC 300 MG/5 ML UDC GT SCH ×2 (10:51→16:46)
[2020-04-16] MEDS: FUROSEMIDE 20 MG/2 ML VIAL IV SCH ×2 (10:51→16:46)
[2020-04-16] MEDS: FENOFIBRATE NANOCRYS (145 MG) 145 MG TABLET GT SCH (10:51)
[2020-04-16] MEDS: GABAPENTIN 300 MG CAPSULE GT SCH ×2 (10:51→16:46)
[2020-04-16] MEDS: LEVETIRACETAM SOL (5 ML) 100 MG/ML UDC GT SCH ×2 (10:51→16:46)
[2020-04-16] MEDS: DAKINS QUARTER STRENGTH (0.125%) 480 ML BOTTLE TOP SCH ×2 (10:52)
[2020-04-16] MEDS: THERAHONEY GEL 1.5 OZ TUBE TP SCH (10:53)
[2020-04-16] MEDS: PROSOURCE / PROSTAT (PYXIS) 30 ML UDC GT SCH (10:54)
--- NOTE | 2020-04-16 12:21 | NUR ---
rn notes bs-399 mg/dl administered 10 units of insulin, patient has GTF infusing Glucerna 1.2 at 60 ml/hr, keep hob elevated for aspiration precaution. v/s wnl. assist turn and reposition Q 2 hr.. patient getting disaturated down to 84, per Dr CONSTANTINO get chest x_ray order TO . order taken and carried out.
[2020-04-16] MEDS: LEVOFLOXACIN (250MG) 250 MG TABLET PO SCH (16:46)
--- NOTE | 2020-04-16 18:30 | NUR ---
RN NOTES BS-396 MG/DL, COVERAGE GIVEN ADMINISTERED SCHEDULED MEDICATION, PM CARE DONE, , NO ACUTE RESPIRATORY DISTRESS, ASSIST TURN AND REPOSTION Q 2 HR. ENDORSED ONCOMING NURSE FOLLOW PLAN OF CARE.
--- NOTE | 2020-04-16 20:00 | NUR ---
CLINICAL MANAGER HOME CARE NOTE PT IN BED ASLEEP, AROUSABLE. ON VENT/TRACH TOLERATING THE SETTINGS WELL. NO DISTRESS OR DISCOMFORT NOTED. NO S/S OF PAIN NOTED. ON TELE MONITOR SR HR 84. O2 SAT 98%. FLEXISEAL INTACT AND PATENT DRAINING BROWNISH STOOL AND F/C INTACT AND PATENT DRAINING YELLOWISH COLOR URINE. SACRAL WOUND WITH DRESSING I/C/D. GTF GLUCERNA 1.2 INFUSING AT 60 ML/HR, 0 ML RESIDUAL NOTED. KEPT HOB ELEVATED. AIDAN PICC LINE INTACT AND PATENT. KEPT HER DRY AND CLEAN. REPOSITION HER FOR SKIN MANAGEMENT AND WILL DO Q2H. VSS. SIDE RAILS UP X 3 AND CALL LIGHT WITHIN REACH. CONTINUE TO MONITOR HER.
[2020-04-16] MEDS: ATORVASTATIN 40 MG TABLET GT SCH (21:46)
[2020-04-16] MEDS: QUETIAPINE FUMARATE 25 MG TABLET GT SCH (21:46)
[2020-04-16] MEDS: ENOXAPARIN SODIUM 40 MG/0.4 ML DISP.SYRIN SQ SCH (21:49)
[2020-04-17] VITALS (34 sets, daily range): BP systolic 86–170; BP diastolic 35–80
[2020-04-17] MEDS: BLOOD SUGAR DIAGNOSTIC 1 EACH STRIP IN SCH ×4 (00:15→17:46)
[2020-04-17] MEDS: INSULIN REGULAR, HUMAN 100 UNIT/ML 3 ML VIAL SQ PRN ×4 (00:21→17:48)
[2020-04-17] MEDS: ALBUTEROL FS 2.5 MG/3 ML VIAL.NEB NEB SCH ×4 (01:40→19:29)
[2020-04-17] MEDS: IPRATROPIUM NEB FS 0.5 MG/2.5 ML AMPUL.NEB NEB SCH ×4 (01:40→19:29)
[2020-04-17 03:54] LABS: BASOPHILS % (AUTO) 0.2 % (0.0-2.0); EOSINOPHILS % (AUTO) 2.1 % (0.0-6.0); HEMATOCRIT 25 % (33-45); HEMOGLOBIN 8.1 g/dL (11.5-14.8); LYMPHOCYTES # (AUTO) 1.2 /CMM (0.8-4.8); LYMPHOCYTES % (AUTO) 15.6 % (20.0-44.0); MEAN CORPUSCULAR HGB CONC 32 g/dl (31.0-36.0); MEAN CORPUSCULAR VOLUME 87 fL (82-100); MONOCYTES # (AUTO) 0.5 /CMM (0.1-1.30); MONOCYTES % (AUTO) 6.3 % (2.0-12.0); NEUTROPHILS # (AUTO) 5.8 /CMM (1.8-8.9); NEUTROPHILS % (AUTO) 75.8 % (43.0-81.0); PLATELET COUNT (AUTO) 290 /CMM (150-450); WHITE BLOOD COUNT (AUTO) 7.7 K/uL (4.3-11.0)
[2020-04-17 04:12] LABS: CALCIUM, SERUM 8.4 mg/dL (8.5-10.1); CREATININE 1.3 mg/dL (0.6-1.3); MAGNESIUM 2.1 mg/dL (1.8-2.4); PHOSPHORUS 2.6 mg/dL (2.5-4.9); POTASSIUM 3.6 mmol/L (3.5-5.1)
[2020-04-17] MEDS: ropiniROLE 0.5 MG TABLET GT SCH ×3 (05:00→21:39)
[2020-04-17] MEDS: METOPROLOL TARTRATE 25 MG TABLET PO SCH ×4 (05:01→17:50)
--- NOTE | 2020-04-17 06:38 | NUR ---
RN ACLS NOTE PT IN BED ASLEEP, AROUSABLE, TOLERATING VENT SETTINGS. NO DISTRESS OR DISCOMFORT NOTED. NO S/S OF PAIN NOTE. KEPT HER DRY AND CLEAN. FLEXISEAL AND F/C INTACT AND PATENT DRAINNG WELL. ON TELE SR. SIDE RAILS UP X 2 AND CALL LIGHT WITHIN REACH. VSS. WILL ENDORSE TO DAY SHIFT NURSE FOR CONTINUE TO CARE.
--- NOTE | 2020-04-17 08:00 | NUR ---
RN NOTES RECEIVED PATIENT TRACHEA /VENT DEPENDENT, AWAKE, FOLLOW COMMAND, NO ACUTE RESPIRATORY DISTRESS, SUCTIONED, REPOSTION Q 2 HR. GTF PLACEMENT, AND RESIDUAL CHECKED 15ML OF RESIDUAL, ADMINISTERED SCHEDULED MEDICATION VIA GT. WOLFE DRAINING LIGHT YELLOW OUTPUT. RECTAL TUBE INTACT, DRESSING CHANGED, ASSIST TURN AND REPOSTION Q2HR. PATIENT TOLERATED GLUCERNA 60CC/HR WELL. KEEP HOB ELEVATED FOR ASPIRATION PRECAUTION, SIDE RAIL UP X3, WILL FOLLOW MONITORING.
[2020-04-17] MEDS: GLUCERNA 1.2 1,000 ML BOTTLE NG PRN (08:02)
[2020-04-17] MEDS: FUROSEMIDE 20 MG/2 ML VIAL IV SCH ×2 (08:17→17:47)
[2020-04-17] MEDS: GABAPENTIN 300 MG CAPSULE GT SCH ×2 (08:17→17:47)
[2020-04-17] MEDS: PROSOURCE / PROSTAT (PYXIS) 30 ML UDC GT SCH (08:17)
[2020-04-17] MEDS: ASPIRIN 81 MG TAB.CHEW GT SCH (08:17)
[2020-04-17] MEDS: PANTOPRAZOLE 40 MG/PACK PACK GT SCH (08:17)
[2020-04-17] MEDS: FERROUS SULFATE UDC 300 MG/5 ML UDC GT SCH ×2 (08:17→17:46)
[2020-04-17] MEDS: MULTIVIT W/MINERALS 1 TAB TABLET GT SCH (08:18)
[2020-04-17] MEDS: FENOFIBRATE NANOCRYS (145 MG) 145 MG TABLET GT SCH (08:18)
[2020-04-17] MEDS: LEVETIRACETAM SOL (5 ML) 100 MG/ML UDC GT SCH ×2 (08:18→17:47)
[2020-04-17] MEDS: DAKINS QUARTER STRENGTH (0.125%) 480 ML BOTTLE TOP SCH ×2 (08:21)
[2020-04-17] MEDS: THERAHONEY GEL 1.5 OZ TUBE TP SCH (08:22)
[2020-04-17] MEDS: TICAGRELOR 90 MG TABLET PO SCH ×2 (08:31→17:47)
--- NOTE | 2020-04-17 13:00 | NUR ---
EDYTA N OTES BS-329 MG/DL COVERAGE GIVEN, DAILY DARE DONE, REPOSTION PER PROTOCOL.
[2020-04-17] MEDS: LEVOFLOXACIN (250MG) 250 MG TABLET PO SCH (14:56)
--- NOTE | 2020-04-17 16:20 | NUR ---
rn notes TRANSFERRED PATIENT TO THE TELE UNIT. REPORT BEDSIDE GIVEN RN SAGAR. V/S STABLE, GTF INFUSING 60 ML/HR GLUCERNA, INTACT, DRESSING CHANGED, PATIENT TRACHEA/VENT DEPENDENT. WOLFE INTACT, RECTAL TUBE INTACT. DVT PUMP ON. RN VERBALIZED UNDERSTANDING. RN WILL FOLLOW PLAN OF CARE.
--- NOTE | 2020-04-17 16:45 | NUR ---
JAVA WEB APPLICATION DEVELOPER NOTES PATIENT TRANSFERRED FROM ICU, REPORT GIVEN AT BEDSIDE, G-TUBE SITE INTACT, INFUSING 60 ML/HR GLUCERNA, INTACT. PATIENT MEDICALLY STABLE AT THIS TIME. WILL PLACE BIOLOGICAL SCIENCE TECHNICIAN FISH. WOLFE INTACT, RECTAL TUBE INTACT. DVT PUMP ON. WILL CONTINUE TO MONITOR PATIENT AND FOLLOW PLAN OF CARE.
--- NOTE | 2020-04-17 19:15 | NUR ---
MANAGER USER EXPERIENCE NOTES PATIENT HAD AN EPISODE ON BRADYCARDIA WITH BIGEMINY, PATIENT VITAL SIGNS WERE WITHIN NORMAL LIMITS, TOLERATING MECHANICAL VENT SETTINGS WELL, SPO2 100%. INFORMED DR. [address] POLICE OFFICER, AND ENDORSE TO HULL OUTFIT SUPERVISOR RN WELL. ORDERED STAT EKG, NSR. PATIENT IN BED RESTING COMFORTABLY AT THIS TIME WITH EVEN NON-LABORED BREATHING. IV ACCESS INTACT AND PATENT. MET ALL OF PATIENTS NEEDS. PATIENT'S SKIN WARM AND DRY TO TOUCH. RECTAL TUBING AND WOLFE CATHETER INTACT AND FLOWING BY GRAVITY. SAFETY PRECAUTIONS IMPLEMENTED WITH BED LOCKED, BED IN THE LOWEST POSITION, BILATERAL SIDE RAILS UP, AND CALL LIGHT WITH IN EASY REACH. WILL ENDORSE PLAN OF CARE TO UPCOMING RN.
--- NOTE | 2020-04-17 20:00 | NUR ---
OPENING NOTE: Patient in bed resting comfortably. Patient on vent and tolerating settings well. NO SOB or acute respiratory distress noted. Safety measure in place, bed is in the lowest level, bed is locked, alarm is on, side rails x2 are up, and call light is within reach. Will continue to monitor.
[2020-04-17] MEDS: ENOXAPARIN SODIUM 40 MG/0.4 ML DISP.SYRIN SQ SCH (21:00)
[2020-04-17] MEDS: QUETIAPINE FUMARATE 25 MG TABLET GT SCH (21:38)
[2020-04-17] MEDS: ATORVASTATIN 40 MG TABLET GT SCH (21:39)
--- NOTE | 2020-04-17 21:40 | NUR ---
Held Enoxaparin due to low Hgb.
[2020-04-18 01:06] VITALS: BP 107/58
[2020-04-18] MEDS: INSULIN REGULAR, HUMAN 100 UNIT/ML 3 ML VIAL SQ PRN ×4 (01:10→18:00)
[2020-04-18] MEDS: IPRATROPIUM NEB FS 0.5 MG/2.5 ML AMPUL.NEB NEB SCH ×4 (02:32→20:09)
[2020-04-18] MEDS: ALBUTEROL FS 2.5 MG/3 ML VIAL.NEB NEB SCH ×4 (02:32→20:09)
[2020-04-18 04:00] VITALS: BP 126/59
--- NOTE | 2020-04-18 04:40 | NUR ---
Patient's daughter, Marjorie called to get an update on her mother.
[2020-04-18] MEDS: ropiniROLE 0.5 MG TABLET GT SCH ×3 (05:37→21:44)
[2020-04-18] MEDS: METOPROLOL TARTRATE 25 MG TABLET PO SCH ×3 (06:23→12:00)
[2020-04-18] MEDS: BLOOD SUGAR DIAGNOSTIC 1 EACH STRIP IN SCH ×4 (06:29→17:04)
[2020-04-18 07:52] LABS: BASOPHILS % (AUTO) 0.1 % (0.0-2.0); EOSINOPHILS % (AUTO) 0.9 % (0.0-6.0); HEMATOCRIT 28 % (33-45); HEMOGLOBIN 8.7 g/dL (11.5-14.8); LYMPHOCYTES # (AUTO) 1.6 /CMM (0.8-4.8); LYMPHOCYTES % (AUTO) 18.2 % (20.0-44.0); MEAN CORPUSCULAR HGB CONC 31 g/dl (31.0-36.0); MEAN CORPUSCULAR VOLUME 90 fL (82-100); MONOCYTES # (AUTO) 0.5 /CMM (0.1-1.30); MONOCYTES % (AUTO) 5.5 % (2.0-12.0); NEUTROPHILS # (AUTO) 6.7 /CMM (1.8-8.9); NEUTROPHILS % (AUTO) 75.3 % (43.0-81.0); PLATELET COUNT (AUTO) 289 /CMM (150-450); WHITE BLOOD COUNT (AUTO) 8.9 K/uL (4.3-11.0)
[2020-04-18 08:00] VITALS: BP 108/60
--- NOTE | 2020-04-18 08:00 | NUR ---
Tele/RN - Assessment Patient is awake, A/O x 1-2, mouth words, tele ST, denies pain, afebrile, no seizure activity, no active bleeding, not in any form of distress, trach and vent dependent with Portex 8 secured and intact, vent settings AC16, TV450, FiO2 40%, PEEP 5, tolerating well. Flexi-seal and Mendez cath in place for wound management. Labs reviewed, no critical results. Wound treatment done as ordered, repositioned per protocol. All needs attended. Will continue with current medical management.
[2020-04-18 08:04] LABS: CALCIUM, SERUM 8.7 mg/dL (8.5-10.1); CREATININE 1.3 mg/dL (0.6-1.3); MAGNESIUM 2.4 mg/dL (1.8-2.4); PHOSPHORUS 3.1 mg/dL (2.5-4.9)
[2020-04-18] MEDS: PANTOPRAZOLE 40 MG/PACK PACK GT SCH (08:25)
[2020-04-18] MEDS: LEVETIRACETAM SOL (5 ML) 100 MG/ML UDC GT SCH ×2 (08:25→16:12)
[2020-04-18] MEDS: MULTIVIT W/MINERALS 1 TAB TABLET GT SCH (08:25)
[2020-04-18] MEDS: FENOFIBRATE NANOCRYS (145 MG) 145 MG TABLET GT SCH (08:25)
[2020-04-18] MEDS: FERROUS SULFATE UDC 300 MG/5 ML UDC GT SCH ×2 (08:25→16:12)
[2020-04-18] MEDS: FUROSEMIDE 20 MG/2 ML VIAL IV SCH (08:25)
[2020-04-18] MEDS: ASPIRIN 81 MG TAB.CHEW GT SCH (08:25)
[2020-04-18] MEDS: GABAPENTIN 300 MG CAPSULE GT SCH ×2 (08:25→16:12)
[2020-04-18] MEDS: PROSOURCE / PROSTAT (PYXIS) 30 ML UDC GT SCH (08:26)
[2020-04-18] MEDS: TICAGRELOR 90 MG TABLET PO SCH ×2 (08:27→16:13)
[2020-04-18] MEDS: THERAHONEY GEL 1.5 OZ TUBE TP SCH (08:28)
[2020-04-18] MEDS: DAKINS QUARTER STRENGTH (0.125%) 480 ML BOTTLE TOP SCH ×2 (08:28)
--- NOTE | 2020-04-18 08:40 | NUR ---
TELE/RN OPENING NOTES RECEIVED PATIENT IN BED. ON VENT, WITH IADAN PICC LINE, INTACT AND PATENT. NO SIGNS OF RESPIRATORY DISTRESS. MAINTAINED BED IN LOWEST POSITION. SAFETY PRECAUTIONS WERE PROVIDED. SIDE RAILS x2. CALL LIGHT WITHIN REACH. WILL CONTINUE TO MONITOR.
--- NOTE | 2020-04-18 08:48 | NUR ---
RN CLOSING NOTE: Patient in bed resting comfortably. Patient breathing even and unlabored, no SOB or acute respiratory distress noted. Safety measure maintained, bed is in the lowest level, bed is locked, alarm is on, side rails x2 are up, and call light is within reach. Endorsed continuity of care to AM nurse.
[2020-04-18 12:00] VITALS: BP 100/46
--- NOTE | 2020-04-18 12:08 | NUR ---
TELE/RN NOTES BS OF 277. INSULIN GIVEN PER SLIDING SCALE.
[2020-04-18] MEDS: LEVOFLOXACIN (250MG) 250 MG TABLET PO SCH (14:26)
--- NOTE | 2020-04-18 15:55 | NUR ---
PATIENT WAS SWABBED FOR COVID TEST. SPEC SENT TO THE LAB.
[2020-04-18 16:00] VITALS: BP 124/54
--- NOTE | 2020-04-18 17:25 | NUR ---
TELE/RN NOTES BS OF 291. INSULIN GIVEN PER SLIDING SCALE.
[2020-04-18] MEDS: GLUCERNA 1.2 1,000 ML BOTTLE NG PRN (17:34)
--- NOTE | 2020-04-18 18:39 | NUR ---
Tele/RN - End of shift summary No significant change in condition, tolerating vent settings well, remain afebrile, SR-ST on the monitor, GFT tolerated well, Mendez catheter and Flexi-seal in place. Pending Gonzalez evaluation. Daughter Marjorie updated on plan of care. Will continue with current medical management.
--- NOTE | 2020-04-18 19:55 | NUR ---
RN OPENING NOTE RECEIVED PATIENT IN BED ALERT CONFUSED NON VERBAL INTUBATED ON MECHANICAL VENT SETTING ON PORTEX 8 AC16 TV 450 FIO2:40 PEEP 5 NO SOB NOT ACUTE DISTRESS NOTED ON G-TUBE FEEDING CHECKED PLACEMENT DONE IN PLACE,ON GLUCERNA 1.2 60CC/HR HEAD OF BED ELEVATED,ON WOLFE CATHETER URINE DRAINING YELLOW AND CLEAR,SAFETY MEASURE IMPLEMENT,CONTINUE TO MONITOR.
[2020-04-18 20:00] VITALS: BP 115/62
[2020-04-18] MEDS: ENOXAPARIN SODIUM 40 MG/0.4 ML DISP.SYRIN SQ SCH (21:34)
[2020-04-18] MEDS: QUETIAPINE FUMARATE 25 MG TABLET GT SCH (21:45)
[2020-04-18] MEDS: ATORVASTATIN 40 MG TABLET GT SCH (21:45)
[2020-04-19] VITALS: BP_SYST 116; BP_SYST 119; BP_DIAS 57; BP_DIAS 63
[2020-04-19] MEDS: BLOOD SUGAR DIAGNOSTIC 1 EACH STRIP IN SCH ×5 (00:23→23:56)
[2020-04-19] MEDS: INSULIN REGULAR, HUMAN 100 UNIT/ML 3 ML VIAL SQ PRN ×4 (00:26→17:53)
[2020-04-19] MEDS: IPRATROPIUM NEB FS 0.5 MG/2.5 ML AMPUL.NEB NEB SCH ×4 (01:38→19:36)
[2020-04-19] MEDS: ALBUTEROL FS 2.5 MG/3 ML VIAL.NEB NEB SCH ×4 (01:38→19:36)
[2020-04-19 04:00] VITALS: BP_SYST 115; BP_SYST 116; BP_DIAS 62; BP_DIAS 63
[2020-04-19] MEDS: ropiniROLE 0.5 MG TABLET GT SCH ×3 (05:20→22:21)
[2020-04-19] MEDS: GLUCERNA 1.2 1,000 ML BOTTLE NG PRN ×2 (05:26→22:23)
--- NOTE | 2020-04-19 06:56 | NUR ---
RN CLOSING NOTE PATIENT REMAINS ON ALERT CONFUSED NON VERBAL INTUBATED ON MECHANICAL VENT SETTING ON PORTEX 8 AC16 TV 450 FIO2:40 PEEP 5 NO SOB NOT ACUTE DISTRESS NOTED ON G-TUBE FEEDING CHECKED PLACEMENT DONE IN PLACE,ON GLUCERNA 1.2 60CC/HR HEAD OF BED ELEVATED,ON WOLFE CATHETER URINE DRAINING YELLOW AND CLEAR,ALL DUE MEDS GIVEN MD ORDERED,BLOOD SUGAR CHECKED AND INSULIN GIVEN PER SLIDING SCALE,KEPT CLEAN AND DRY ALL THE TIME,KEPT COMFORTABLE,ENDORSE NEXT COMING SHIFT FOR CONTINUATION OF CARE.
--- NOTE | 2020-04-19 07:45 | NUR ---
Tele/RN - Assessment Patient is awake, A/O x 1-2, mouth words, tele ST, denies pain, afebrile, no seizure activity, no active bleeding, not in any form of distress, trach and vent dependent with Portex 8 secured and intact, vent settings AC16, TV450, FiO2 40%, PEEP 5, tolerating well. Flexi-seal and Mendez cath in place for wound management. No labs for today. Pending Gonzalez eval. Will continue with current medical management.
[2020-04-19 08:00] VITALS: BP 117/62
[2020-04-19] MEDS: LEVETIRACETAM SOL (5 ML) 100 MG/ML UDC GT SCH ×2 (08:45→16:18)
[2020-04-19] MEDS: FERROUS SULFATE UDC 300 MG/5 ML UDC GT SCH ×2 (08:45→16:18)
[2020-04-19] MEDS: PANTOPRAZOLE 40 MG/PACK PACK GT SCH (08:45)
[2020-04-19] MEDS: ASPIRIN 81 MG TAB.CHEW GT SCH (08:45)
[2020-04-19] MEDS: TICAGRELOR 90 MG TABLET PO SCH ×2 (08:45→17:31)
[2020-04-19] MEDS: GABAPENTIN 300 MG CAPSULE GT SCH ×2 (08:46→16:18)
[2020-04-19] MEDS: PROSOURCE / PROSTAT (PYXIS) 30 ML UDC GT SCH (08:46)
[2020-04-19] MEDS: FENOFIBRATE NANOCRYS (145 MG) 145 MG TABLET GT SCH (08:46)
[2020-04-19] MEDS: MULTIVIT W/MINERALS 1 TAB TABLET GT SCH (08:46)
[2020-04-19] MEDS: DAKINS QUARTER STRENGTH (0.125%) 480 ML BOTTLE TOP SCH ×2 (08:47)
[2020-04-19] MEDS: THERAHONEY GEL 1.5 OZ TUBE TP SCH (08:48)
--- NOTE | 2020-04-19 11:54 | NUR ---
TELE/RN BS OF 291. INSULIN GIVEN PER SLIDING SCALE.
[2020-04-19 12:00] VITALS: BP 112/58
[2020-04-19] MEDS: LEVOFLOXACIN (250MG) 250 MG TABLET PO SCH (14:59)
[2020-04-19 16:00] VITALS: BP 117/63
--- NOTE | 2020-04-19 18:00 | NUR ---
TELE/RN BS OF 295. INSULIN GIVEN PER SLIDING SCALE.
--- NOTE | 2020-04-19 18:13 | NUR ---
TELE/RN CLOSING NOTE PATIENT IN BED. A/O X2-3. AFEBRILE. WITH TRACH, SUCTIONED NEEDED. NO SIGNS OF RESPIRATORY DISTRESS. ON VENT WITH SETTING AC 16, TV 450, FI02 40, PEEP 5.0. PICC LINE ON AIDAN. G-TUBE PATENT. FLEXI SEAL IN PLACE. WOLFE CATHETER DRAINING WELL. MEDS GIVEN ORDERED. INSULIN WERE GIVEN PER SLIDING SCALE. IMPLEMENTED SAFETY PRECAUTIONS. BED PLACED IN LOWEST LEVEL. CALL LIGHT WITHIN REACH. WILL ENDORSE CONTINUITY OF CARE TO ALUMINUM POOL INSTALLER.
--- NOTE | 2020-04-19 19:30 | NUR ---
MOLD CLOSER OPENING NOTE RECEIVED PATIENT IN BED. A/O X1-2. ABLE TO NOD. AND MOUTH WORDS. ON MECHANICAL VENT. NO RESP DISTRESS NOTED. NO C/O PAIN AT THIS TIME. EXTERNAL TELE MONITOR READS SINUS TACHY R 104. IN NO APPARENT DISTRESS. IV ACCES IN AIDAN PICC LINE PATENT AND SALINE LOCKED. WOLFE CATHETER IS PRESENT DRAINING TO GRAVITY, FLEXISEAL PRESENT, DRAINING TO GRAVITY. GTUBE IS PRESENT, NO RESIDUAL, FLUSHED WITH NO RESISTANCE, RUNING GLUCERNA 1.2@60ML/HR. BED IS LOW AND LOCKED, HOB ELEVATED IN SEMI FOWLERS, SIDE RIALS UP X2, CALL LIGHT WITHIN REACH. WILL CONTINUE TO MONITOR.
[2020-04-19 20:00] VITALS: BP 113/58
[2020-04-19] MEDS: ATORVASTATIN 40 MG TABLET GT SCH (22:21)
[2020-04-19] MEDS: QUETIAPINE FUMARATE 25 MG TABLET GT SCH (22:21)
[2020-04-19] MEDS: ENOXAPARIN SODIUM 40 MG/0.4 ML DISP.SYRIN SQ SCH (22:22)
[2020-04-20] VITALS: BP 103/56
[2020-04-20] MEDS: ALBUTEROL FS 2.5 MG/3 ML VIAL.NEB NEB SCH ×4 (01:49→19:33)
[2020-04-20] MEDS: IPRATROPIUM NEB FS 0.5 MG/2.5 ML AMPUL.NEB NEB SCH ×4 (01:49→19:33)
[2020-04-20 04:00] VITALS: BP 129/67
[2020-04-20] MEDS: ropiniROLE 0.5 MG TABLET GT SCH ×3 (05:48→21:47)
[2020-04-20] MEDS: BLOOD SUGAR DIAGNOSTIC 1 EACH STRIP IN SCH ×3 (05:48→17:18)
[2020-04-20] MEDS: INSULIN REGULAR, HUMAN 100 UNIT/ML 3 ML VIAL SQ PRN ×5 (06:05→23:33)
[2020-04-20 06:42] LABS: BASOPHILS % (AUTO) 0.1 % (0.0-2.0); EOSINOPHILS % (AUTO) 4.9 % (0.0-6.0); HEMATOCRIT 28 % (33-45); HEMOGLOBIN 8.8 g/dL (11.5-14.8); LYMPHOCYTES # (AUTO) 1.2 /CMM (0.8-4.8); LYMPHOCYTES % (AUTO) 15.4 % (20.0-44.0); MEAN CORPUSCULAR HGB CONC 31 g/dl (31.0-36.0); MEAN CORPUSCULAR VOLUME 88 fL (82-100); MONOCYTES # (AUTO) 0.4 /CMM (0.1-1.30); MONOCYTES % (AUTO) 4.7 % (2.0-12.0); NEUTROPHILS # (AUTO) 5.8 /CMM (1.8-8.9); NEUTROPHILS % (AUTO) 74.9 % (43.0-81.0); PLATELET COUNT (AUTO) 264 /CMM (150-450); RED BLOOD CELL COUNT(AUTO) 3.19 MIL/uL (4.0-5.2); WHITE BLOOD COUNT (AUTO) 7.8 K/uL (4.3-11.0)
[2020-04-20 07:33] LABS: CALCIUM, SERUM 8.7 mg/dL (8.5-10.1); MAGNESIUM 2.4 mg/dL (1.8-2.4); PHOSPHORUS 3.2 mg/dL (2.5-4.9); POTASSIUM 3.8 mmol/L (3.5-5.1)
--- NOTE | 2020-04-20 07:37 | NUR ---
LIQUID FLAVOR COMPOUNDER CLOSING NOTE PATIENT RESTING IN BED. A/O X1-2. ABLE TO MAKE NEEDS KNOWN. REMAINS ON MECHANICAL VENT. NO RESP DISTRESS NOTED. NO C/O PAIN. EXTERNAL TELE MONITOR READS SINUS TACHY. NO DISTRESS. IV ACCES MAINTAINED IN AIDAN PICCLINE. WOLFE CATHETER IS PRESENT DRAINING TO GRAVITY, OUTPUT 500. FLEXISEAL MAINTAINED OUTPUT 200ML. GTUBE IS MAINTAINED RUNNING GLUCERNA 1.2@60ML/HR. PATIENT SECRETIONS FROM SUCTION ARE DARK RED 300ML OUTPUT. BED REMAINS LOW AND LOCKED, HOB ELEVATED IN SEMI FOWLERS, SIDE RIALS UP X2, CALL LIGHT WITHIN REACH. WILL ENDORSE TO NEXT SHIFT
--- NOTE | 2020-04-20 07:38 | NUR ---
GOLD ASSAYER NOTES RECEIVED PATIENT IN BED SLEEPING AWAKEN BY TOUCH, ALERT AND ORIENTED X1-2. ABLE TO NOD AND MOUTH WORDS. ON MECHANICAL VENT. NO RESP DISTRESS NOTED AT THIS TIME. WITH EVEN NON-LABORED BREATHING. NO COMPLAINTS OF PAIN AT THIS TIME. ON TELE MONITOR READS SINUS 88, AND IN NO APPARENT DISTRESS. IV ACCES IN AIDAN PICC LINE PATENT AND SALINE LOCKED. WOLFE CATHETER IS PRESENT DRAINING TO GRAVITY, FLEXISEAL PRESENT, DRAINING TO GRAVITY. G-TUBE SITE INTACT AND NO RESIDUAL, INFUSING GLUCERNA 1.2@60ML/HR. SAFETY PRECAUTIONS IMPLEMENTED WITH BED LOCKED, BED IN THE LOWEST POSITION, BILATERAL SIDE RAILS UP, BED ALARM ON, AND CALL LIGHT WITHIN EASY REACH. WILL CONTINUE TO MONITOR PATIENT.
[2020-04-20 08:00] VITALS: BP 118/85
[2020-04-20 09:08] LABS: ABG BASE EXCESS 4.1 mmol/L; ABG OXYGEN SATURATION 94.3 % (92.0-98.5); ABG PH 7.392 (7.350-7.450); ABG PO2 75.8 mmHg (75.0-100.0); AaDO2 151.9 mmHg; COHb 0.7 % (0.5-1.5); MetHb 0.2 % (0.0-1.5); O2Hb 93.5 % (94.0-97.0); SITE, ABG Left Radial; VENT MODE, BG SIMV 4 PSV 15 40% +5
[2020-04-20] MEDS: FENOFIBRATE NANOCRYS (145 MG) 145 MG TABLET GT SCH (09:30)
[2020-04-20] MEDS: PROSOURCE / PROSTAT (PYXIS) 30 ML UDC GT SCH (09:30)
[2020-04-20] MEDS: MULTIVIT W/MINERALS 1 TAB TABLET GT SCH (09:31)
[2020-04-20] MEDS: FERROUS SULFATE UDC 300 MG/5 ML UDC GT SCH ×2 (09:31→17:16)
[2020-04-20] MEDS: PANTOPRAZOLE 40 MG/PACK PACK GT SCH (09:31)
[2020-04-20] MEDS: ASPIRIN 81 MG TAB.CHEW GT SCH (09:31)
[2020-04-20] MEDS: LEVETIRACETAM SOL (5 ML) 100 MG/ML UDC GT SCH ×2 (09:31→17:16)
[2020-04-20] MEDS: TICAGRELOR 90 MG TABLET PO SCH ×2 (09:31→17:17)
[2020-04-20] MEDS: GABAPENTIN 300 MG CAPSULE GT SCH ×2 (09:31→17:16)
[2020-04-20] MEDS: THERAHONEY GEL 1.5 OZ TUBE TP SCH (09:36)
[2020-04-20] MEDS: DAKINS QUARTER STRENGTH (0.125%) 480 ML BOTTLE TOP SCH ×2 (09:36)
[2020-04-20] MEDS: LEVOFLOXACIN (250MG) 250 MG TABLET PO SCH (15:31)
[2020-04-20 16:00] VITALS: BP 127/60
[2020-04-20] MEDS: GLUCERNA 1.2 1,000 ML BOTTLE NG PRN (17:20)
--- NOTE | 2020-04-20 19:50 | NUR ---
JUVENILE JUSTICE SPECIALIST NOTES PATIENT IN BED SLEEPING AWAKEN BY TOUCH, ALERT AND ORIENTED X1-2. ABLE TO NOD AND MOUTH WORDS. ON MECHANICAL VENT. NO RESP DISTRESS NOTED AT THIS TIME. WITH EVEN NON-LABORED BREATHING. NO COMPLAINTS OF PAIN AT THIS TIME. ON TELE MONITOR SINUS RHYTHM 80'S, AND IN NO APPARENT DISTRESS. IV ACCES IN AIDAN PICC LINE PATENT AND SALINE LOCKED. WOLFE CATHETER IS PRESENT DRAINING TO GRAVITY, FLEXISEAL PRESENT, DRAINING TO GRAVITY. G-TUBE SITE INTACT AND NO RESIDUAL, INFUSING GLUCERNA 1.2@60ML/HR. SAFETY PRECAUTIONS IMPLEMENTED WITH BED LOCKED, BED IN THE LOWEST POSITION, BILATERAL SIDE RAILS UP, BED ALARM ON, AND CALL LIGHT WITHIN EASY REACH. WILL ENDORSE PLAN OF CARE TO UPCOMING RN.
[2020-04-20 20:00] VITALS: BP_SYST 121
--- NOTE | 2020-04-20 20:35 | NUR ---
RN NOTES RECEIVED PT, AWAKE ON BED,VENT DEPENDENT, SR ON TELE MONITOR HR-91, FLEXISEAL IN PLACE, F/C DRAINING CLEAR YELLOW URINE,. SIDERAILSUPX2 CONTINUE TO MONITOR
[2020-04-20] MEDS: ATORVASTATIN 40 MG TABLET GT SCH (21:47)
[2020-04-20] MEDS: QUETIAPINE FUMARATE 25 MG TABLET GT SCH (21:47)
--- NOTE | 2020-04-20 22:30 | NUR ---
RN NOTES CALLED PT'S DAUGHTER LAURIE SALVADOR, AND GET A TELEPHONE CONSENT FOR THORACENTESIS, WITNESSED BY ANOTHER RN BLADIMIR
[2020-04-20] MEDS: INSULIN GLARGINE, 100 UNIT/ML CARTRIDGE SQ SCH (23:32)
[2020-04-21] VITALS (7 sets, daily range): BP systolic 99–127; BP diastolic 46–81
[2020-04-21] MEDS: BLOOD SUGAR DIAGNOSTIC 1 EACH STRIP IN SCH ×6 (00:36→23:34)
[2020-04-21] MEDS: IPRATROPIUM NEB FS 0.5 MG/2.5 ML AMPUL.NEB NEB SCH ×4 (01:55→20:07)
[2020-04-21] MEDS: ALBUTEROL FS 2.5 MG/3 ML VIAL.NEB NEB SCH ×4 (01:55→20:07)
[2020-04-21] MEDS: ropiniROLE 0.5 MG TABLET GT SCH ×3 (04:38→21:06)
--- NOTE | 2020-04-21 05:09 | NUR ---
RT NOTES PT IS TRACHED AND TOLERATING ORDERED SIMV SETTINGS. NO SIGNS OF RESP DISTRESS NOTED. AIRWAY PATENT AND SECURED. PT SUCTIONED. ORDERED HHN TX GIVEN. ALARMS SET AND AUDIBLE. AMBUBAG AT BEDSIDE. VENT CONT TO RED OUTLET. WILL CONT TO MONITOR.
[2020-04-21] MEDS: INSULIN REGULAR, HUMAN 100 UNIT/ML 3 ML VIAL SQ PRN ×4 (06:26→23:36)
[2020-04-21 07:00] LABS: BASOPHILS % (AUTO) 0.4 % (0.0-2.0); EOSINOPHILS % (AUTO) 3.6 % (0.0-6.0); HEMATOCRIT 29 % (33-45); HEMOGLOBIN 9.1 g/dL (11.5-14.8); LYMPHOCYTES # (AUTO) 0.8 /CMM (0.8-4.8); LYMPHOCYTES % (AUTO) 9.7 % (20.0-44.0); MEAN CORPUSCULAR HGB CONC 32 g/dl (31.0-36.0); MEAN CORPUSCULAR VOLUME 87 fL (82-100); MONOCYTES # (AUTO) 0.3 /CMM (0.1-1.30); MONOCYTES % (AUTO) 3.2 % (2.0-12.0); NEUTROPHILS % (AUTO) 83.1 % (43.0-81.0); PLATELET COUNT (AUTO) 263 /CMM (150-450); RED BLOOD CELL COUNT(AUTO) 3.33 MIL/uL (4.0-5.2); WHITE BLOOD COUNT (AUTO) 8.4 K/uL (4.3-11.0)
--- NOTE | 2020-04-21 07:00 | NUR ---
RN NOTES AWAKE, MORNING CARE RENDERED, NOT IN DISTRESS, G-TUBE FEEDING IN PLACE, NO RESIDUAL NOTED, SIDERAILSUPX2, PT. NEEDS ATTENDED
[2020-04-21 07:05] LABS: CALCIUM, SERUM 8.5 mg/dL (8.5-10.1); CREATININE 0.9 mg/dL (0.6-1.3); POTASSIUM 4.1 mmol/L (3.5-5.1)
--- NOTE | 2020-04-21 07:29 | NUR ---
FRUIT AND VEGETABLE INSPECTOR OPENING NOTES RECEIVED PATIENT AWAKE IN BED IN NO ACUTE SIGNS OF DISTRESS. HOB ELEVATED. A/O X1-2. ABLE TO NOD AND MOUTH WORDS, DENIES PAIN OR ANY DISCOMFORTS AT THIS TIME. ON MECHANICAL VENTILATOR AT PRESCRIBED PARAMETERS, TOLERATING SETTINGS WELL WITH NO SOB NOTED. EXTERNAL TELE MONITOR SHOWS CURRENT READING OF NSR WITH HR ON THE 90'S, NO S/S OF CARDIAC DISTRESS NOTED. G-TUBE IN PLACE WITH FEEDING OF GLUCERNA 1.2 @ 60 ML/HR IN PROGRESS, TOLERATING WELL. ASPIRATION PRECAUTIONS MAINTAINED. TRIPLE LUMEN PICC LINE ON AIDAN INTACT, PATENT WITH DRESSING C/D/I. WOLFE CATHETER IN PLACE DRAINING TO GRAVITY WITH SLIGHTLY CLOUDY YELLOW URINE OUTPUT. FLEXI SEAL RECTAL TUBE PRESENT, DRAINING TO GRAVITY LIQUID TO SOFT DARK BROWNISH STOOL. SAFETY MEASURES IN PLACE: BED IS LOW AND LOCKED, SIDE RIALS UP X2, CALL LIGHT WITHIN REACH. WILL CONTINUE TO MONITOR PT ACCORDINGLY.
[2020-04-21] MEDS: ASPIRIN 81 MG TAB.CHEW GT SCH (08:06)
--- NOTE | 2020-04-21 08:06 | NUR ---
RN NOTES RECEIVED CALL FROM RADIOLOGY TO HOLD ASPIRIN THIS MORNING. PT IS FOR THORACENTESIS TODAY. WILL CONTINUE TO MONITOR.
[2020-04-21 09:37] LABS: BAND % (MANUAL) 1 % (0.0-5.0); EOSINOPHILS % (MANUAL) 7 % (0-4); LYMPHOCYTES % (MANUAL) 11 % (16-48); MONOCYTES % (MANUAL) 1 % (0-11.0); NEUTROPHILS % (MANUAL) 80 (42-76)
[2020-04-21] MEDS: PROSOURCE / PROSTAT (PYXIS) 30 ML UDC GT SCH (09:47)
[2020-04-21] MEDS: GABAPENTIN 300 MG CAPSULE GT SCH ×2 (09:47→17:07)
[2020-04-21] MEDS: LEVETIRACETAM SOL (5 ML) 100 MG/ML UDC GT SCH ×2 (09:47→17:07)
[2020-04-21] MEDS: TICAGRELOR 90 MG TABLET PO SCH ×2 (09:47→17:07)
[2020-04-21] MEDS: FENOFIBRATE NANOCRYS (145 MG) 145 MG TABLET GT SCH (09:47)
[2020-04-21] MEDS: MULTIVIT W/MINERALS 1 TAB TABLET GT SCH (09:47)
[2020-04-21] MEDS: FERROUS SULFATE UDC 300 MG/5 ML UDC GT SCH ×2 (09:47→17:07)
[2020-04-21] MEDS: PANTOPRAZOLE 40 MG/PACK PACK GT SCH (09:47)
[2020-04-21] MEDS: THERAHONEY GEL 1.5 OZ TUBE TP SCH (09:49)
[2020-04-21] MEDS: DAKINS QUARTER STRENGTH (0.125%) 480 ML BOTTLE TOP SCH ×2 (09:50→10:20)
--- NOTE | 2020-04-21 10:46 | NUR ---
RN NOTES THORACENTESIS DONE BY DR COLLINS ON RIGHT LUNG WITH YELLOW CLOUDY 1,[address] COLLINS WITH ORDER TO DO STAT CHEST X-RAY. PT TOLERATED PROCEDURE WELL WITH NO ACTIVE BLEEDING AT SITE NOTED. WILL CONTINUE TO MONITOR.
[2020-04-21] MEDS: LEVOFLOXACIN (250MG) 250 MG TABLET PO SCH (15:12)
[2020-04-21] MEDS: GLUCERNA 1.2 1,000 ML BOTTLE NG PRN (18:05)
--- NOTE | 2020-04-21 18:35 | NUR ---
CASEWORK SPECIALIST CLOSING NOTES PATIENT IN BED AWAKE AT THIS TIME. HOB ELEVATED. A/O X1-2. FOLLOWS SIMPLE COMMANDS AND ABLE TO MOUTH WORDS. MAINTAINED ON MECHANICAL VENTILATOR AT PRESCRIBED PARAMETERS, TOLERATING SETTINGS WELL WITH NO SOB NOTED DURING SHIFT. EXTERNAL TELE MONITOR SHOWS CURRENT READING OF NSR WITH HR ON THE 90'S, NO S/S OF CARDIAC DISTRESS NOTED. G-TUBE IN PLACE WITH FEEDING OF GLUCERNA 1.2 @ 60 ML/HR IN PROGRESS, TOLERATING WELL. ASPIRATION PRECAUTIONS MAINTAINED. TRIPLE LUMEN PICC LINE ON AIDAN INTACT, PATENT, FLUSHES WELL WITH DRESSING C/D/I. WOLFE CATHETER IN PLACE DRAINING TO GRAVITY WITH SLIGHTLY CLOUDY YELLOW URINE OUTPUT, WOLFE CARE DONE. FLEXI SEAL RECTAL TUBE PRESENT, DRAINING TO GRAVITY LIQUID TO SOFT DARK BROWNISH STOOL. PT TURNED AND REPOSITIONED Q 2HRS AND PRN. ALL NEEDS ANTICIPATED AND MET. SAFETY MEASURES KEPT IN PLACE: BED IS LOW AND LOCKED, SIDE RIALS UP X2, CALL LIGHT WITHIN REACH. WILL ENDORSE TO GARBAGE STOKER NURSE FOR JAMES.
--- NOTE | 2020-04-21 19:30 | NUR ---
TELE/RN OPENING NOTES RECEIVED PATIENT IN BED RESTING. PATIENT IS ALERT AND ORIENTED X 1, CAN MOUTH WORDS. PATIENT ON MECH VENT, TOLERATING SETTING WELL. PATIENT TELE READING NSR. G-TUBE IN PLACE WITH FEEDING OF GLUCERNA 1.2 @ 60 ML/HR. FLEXI SEAL RECTAL TUBE PRESENT, DRAINING TO GRAVITY LIQUID TO SOFT DARK BROWNISH STOOL. PATIENT HAS AIDAN PICC INTACT FLUSHING WELL. SAFETY MEASURES ARE IN PLACE, BED IS LOCKED AND PLACED IN THE LOW POSITION, SIDE RAILS UP X 3, CALL LIGHT IS WITHIN REACH. WILL CONTINUE TO MONITOR THROUGH OUT SHIFT.
[2020-04-21] MEDS: QUETIAPINE FUMARATE 25 MG TABLET GT SCH (21:06)
[2020-04-21] MEDS: ATORVASTATIN 40 MG TABLET GT SCH (21:06)
[2020-04-21] MEDS: INSULIN GLARGINE, 100 UNIT/ML CARTRIDGE SQ SCH (21:33)
[2020-04-22] MEDS: IPRATROPIUM NEB FS 0.5 MG/2.5 ML AMPUL.NEB NEB SCH ×4 (01:26→19:50)
[2020-04-22] MEDS: ALBUTEROL FS 2.5 MG/3 ML VIAL.NEB NEB SCH ×4 (01:26→19:50)
[2020-04-22] MEDS: ropiniROLE 0.5 MG TABLET GT SCH ×3 (05:11→21:18)
[2020-04-22] MEDS: BLOOD SUGAR DIAGNOSTIC 1 EACH STRIP IN SCH ×4 (05:29→23:53)
[2020-04-22] MEDS: INSULIN REGULAR, HUMAN 100 UNIT/ML 3 ML VIAL SQ PRN ×4 (05:32→23:49)
--- NOTE | 2020-04-22 06:55 | NUR ---
TELE/RN CLOSING NOTES PATIENT IN BED RESTING. PATIENT IS ALERT AND ORIENTED X 1, CAN MOUTH WORDS. PATIENT ON MECH VENT, TOLERATING SETTING WELL. PATIENT TELE READING NSR. G-TUBE IN PLACE WITH FEEDING OF GLUCERNA 1.2 @ 60 ML/HR, NO RESIDUAL. FLEXI SEAL RECTAL TUBE PRESENT 50 CC OUT, DRAINING TO GRAVITY LIQUID TO SOFT DARK BROWNISH STOOL. WOLFE CATH IN PLACE DRAIN 420CC. PATIENT HAS AIDAN PICC INTACT FLUSHING WELL. ALL NEEDS HAVE BEEN MET DURING SHIFT. SAFETY MEASURES ARE IN PLACE, BED IS LOCKED AND PLACED IN THE LOW POSITION, SIDE RAILS UP X 3, CALL LIGHT IS WITHIN REACH. WILL ENDORSE CARE TO DAY SHIFT NURSE.
[2020-04-22 07:46] LABS: BASOPHILS % (AUTO) 0.3 % (0.0-2.0); EOSINOPHILS % (AUTO) 6.1 % (0.0-6.0); HEMATOCRIT 27 % (33-45); HEMOGLOBIN 8.5 g/dL (11.5-14.8); LYMPHOCYTES % (AUTO) 17.4 % (20.0-44.0); MEAN CORPUSCULAR HGB CONC 32 g/dl (31.0-36.0); MEAN CORPUSCULAR VOLUME 87 fL (82-100); MONOCYTES # (AUTO) 0.2 /CMM (0.1-1.30); MONOCYTES % (AUTO) 4.1 % (2.0-12.0); NEUTROPHILS # (AUTO) 4.1 /CMM (1.8-8.9); NEUTROPHILS % (AUTO) 72.1 % (43.0-81.0); PLATELET COUNT (AUTO) 199 /CMM (150-450); RED BLOOD CELL COUNT(AUTO) 3.08 MIL/uL (4.0-5.2); WHITE BLOOD COUNT (AUTO) 5.7 K/uL (4.3-11.0)
[2020-04-22 08:00] VITALS: BP 93/53
[2020-04-22 08:19] LABS: CALCIUM, SERUM 8.2 mg/dL (8.5-10.1); CREATININE 0.8 mg/dL (0.6-1.3); POTASSIUM 3.6 mmol/L (3.5-5.1)
--- NOTE | 2020-04-22 08:30 | NUR ---
received pt. in am,vent settings unchanged.hob elevated,no distress.
--- NOTE | 2020-04-22 09:00 | NUR ---
per resp. tx.edmund nelson requesting pt. be weaned off of vent.vent set up still at bedside,suctioned debra. for beige to brownish tinged sputum.f/c to grv. drainage,flexi seal in place.
[2020-04-22 09:45] LABS: BAND % (MANUAL) 1 % (0.0-5.0); EOSINOPHILS % (MANUAL) 8 % (0-4); LYMPHOCYTES % (MANUAL) 11 % (16-48); MONOCYTES % (MANUAL) 4 % (0-11.0); NEUTROPHILS % (MANUAL) 76 (42-76)
[2020-04-22 10:31] LABS: ABG BASE EXCESS 5.1 mmol/L; ABG OXYGEN SATURATION 92.6 % (92.0-98.5); ABG PCO2 46.7 mmHg (35.0-45.0); ABG PH 7.427 (7.350-7.450); ABG PO2 64.2 mmHg (75.0-100.0); AaDO2 131.1 mmHg; COHb 0.6 % (0.5-1.5); MetHb 0.1 % (0.0-1.5); SITE, ABG Right Radial; VENT MODE, BG CA 35% 8L
[2020-04-22] MEDS: THERAHONEY GEL 1.5 OZ TUBE TP SCH (10:47)
[2020-04-22] MEDS: DAKINS QUARTER STRENGTH (0.125%) 480 ML BOTTLE TOP SCH ×2 (10:53→10:58)
[2020-04-22] MEDS: FENOFIBRATE NANOCRYS (145 MG) 145 MG TABLET GT SCH (10:54)
[2020-04-22] MEDS: MULTIVIT W/MINERALS 1 TAB TABLET GT SCH (10:54)
[2020-04-22] MEDS: ASPIRIN 81 MG TAB.CHEW GT SCH (10:54)
[2020-04-22] MEDS: TICAGRELOR 90 MG TABLET PO SCH ×2 (10:54→17:01)
[2020-04-22] MEDS: PROSOURCE / PROSTAT (PYXIS) 30 ML UDC GT SCH (10:55)
[2020-04-22] MEDS: FERROUS SULFATE UDC 300 MG/5 ML UDC GT SCH ×2 (10:55→17:01)
[2020-04-22] MEDS: GABAPENTIN 300 MG CAPSULE GT SCH ×2 (10:55→17:01)
[2020-04-22] MEDS: LEVETIRACETAM SOL (5 ML) 100 MG/ML UDC GT SCH ×2 (11:03→17:04)
[2020-04-22] MEDS: PANTOPRAZOLE 40 MG/PACK PACK GT SCH (11:03)
--- NOTE | 2020-04-22 11:10 | NUR ---
RT PLACED ON CA 8L 35% SERGIO WELL ABG DONE [address] CONSTANTINO
[2020-04-22 12:00] VITALS: BP 103/51
[2020-04-22] MEDS: GLUCERNA 1.2 1,000 ML BOTTLE NG PRN (15:28)
[2020-04-22 16:00] VITALS: BP 105/55
[2020-04-22] MEDS: LEVOFLOXACIN (250MG) 250 MG TABLET PO SCH (17:00)
--- NOTE | 2020-04-22 18:00 | NUR ---
no chg. in status.
[2020-04-22 20:00] VITALS: BP 112/58
--- NOTE | 2020-04-22 20:00 | NUR ---
GT FEEDING RESIDUAL CHECKED= NONE.
--- NOTE | 2020-04-22 21:14 | NUR ---
TRACH SECRETIONS SUCTIONED,PATIENT TOLERATED. HOB ELEVATED AT ALL TIMES. O2 SAT AT 91%, HR=99.
[2020-04-22] MEDS: QUETIAPINE FUMARATE 25 MG TABLET GT SCH (21:18)
[2020-04-22] MEDS: ATORVASTATIN 40 MG TABLET GT SCH (21:18)
--- NOTE | 2020-04-22 22:00 | NUR ---
GT FLUSHED WITH 300CC WATER.
--- NOTE | 2020-04-22 22:06 | NUR ---
CALLED RT RE: O2 SAT 88-89%.
--- NOTE | 2020-04-22 22:18 | NUR ---
RT CAME AND CHECKED THE PATIENT.
[2020-04-22 22:56] VITALS: BP 112/58
[2020-04-22] MEDS: INSULIN GLARGINE, 100 UNIT/ML CARTRIDGE SQ SCH (23:50)
--- NOTE | 2020-04-23 00:59 | NUR ---
TELERN REPORT RECEIVED FROM OUTGOING RN. PATIENT ABLE TO TOLERATE TP. NO SOB SEEN. APPEARS COMFORTABLE. PRESENT GT FEEDINGS TOLERATED WELL, NO RESIDUALS. ST ON THE MONITOR AT RATE 100 TO 114. TO CONTINUE
--- NOTE | 2020-04-23 01:00 | NUR ---
REPORTS GIVEN TO EDYTA VALERA FOR CONTINUITY OF CARE.
[2020-04-23] MEDS: IPRATROPIUM NEB FS 0.5 MG/2.5 ML AMPUL.NEB NEB SCH ×4 (01:44→19:16)
[2020-04-23] MEDS: ALBUTEROL FS 2.5 MG/3 ML VIAL.NEB NEB SCH ×4 (01:44→19:16)
--- NOTE | 2020-04-23 02:55 | NUR ---
TELERN EASILY DESATURATES, NEED OCC DEEP SUCTIONING MODERATE AMOUNT OF THICK SECRETIONS OBTAINED BY RT. PATIENT DOES NO SEEM TO BE ON RESPIRATORY DISTRESS. ABLE TO MOUTH WORDS HER NEEDS. CONTINUED MONITORING
[2020-04-23] MEDS: ropiniROLE 0.5 MG TABLET GT SCH ×2 (05:31→13:07)
--- NOTE | 2020-04-23 05:45 | NUR ---
TELERN COMPLETELY BATHED. REPOSITIONED FOR COMFORT
[2020-04-23] MEDS: BLOOD SUGAR DIAGNOSTIC 1 EACH STRIP IN SCH ×3 (06:49→18:11)
[2020-04-23 08:00] VITALS: BP 145/72
--- NOTE | 2020-04-23 08:00 | NUR ---
RN Opening note Received patient in bed, AO x 2 able to responds all stimuli, Pt does no appears pain or distress. Skin is warm to touch keep clean/dry intact IV site, respiratory even and unlabored with t piece at 60% /10Ls oxygen O2sat 93-94%. Kept locked bed with elevated HOB for aspiration precaution and ensure airway and lowest bed foe safety. Call light within reach, will continue to monitor.
--- NOTE | 2020-04-23 08:30 | NUR ---
PT RECEIVED ON COOL AEROSOL 35% FI02 WITH A SATURATION OF 80%. PLACED PT ON 60% FI02 AND SATURATION WENT UP TO 94%. HHN TX GIVEN WITH NO ADVERSE REACTION. PATIENT IS CURRENTLY ON 60% FI02. RN IS AWARE. WILL CONTINUE TO MONITOR PT. Addendum: 04/23/20 at 0830 by JAZMYN FUNEZ RT Amended: Links added.
[2020-04-23] MEDS: FENOFIBRATE NANOCRYS (145 MG) 145 MG TABLET GT SCH (08:59)
[2020-04-23] MEDS: FERROUS SULFATE UDC 300 MG/5 ML UDC GT SCH ×2 (08:59→16:41)
[2020-04-23] MEDS: ASPIRIN 81 MG TAB.CHEW GT SCH (08:59)
[2020-04-23] MEDS: LEVETIRACETAM SOL (5 ML) 100 MG/ML UDC GT SCH ×2 (08:59→16:41)
[2020-04-23] MEDS: PANTOPRAZOLE 40 MG/PACK PACK GT SCH (08:59)
[2020-04-23] MEDS: MULTIVIT W/MINERALS 1 TAB TABLET GT SCH (08:59)
[2020-04-23] MEDS: GABAPENTIN 300 MG CAPSULE GT SCH ×2 (08:59→16:41)
[2020-04-23] MEDS: PROSOURCE / PROSTAT (PYXIS) 30 ML UDC GT SCH (09:03)
[2020-04-23] MEDS: TICAGRELOR 90 MG TABLET PO SCH ×2 (09:03→16:44)
[2020-04-23] MEDS: THERAHONEY GEL 1.5 OZ TUBE TP SCH (09:08)
[2020-04-23] MEDS: DAKINS QUARTER STRENGTH (0.125%) 480 ML BOTTLE TOP SCH ×2 (09:08→09:09)
--- NOTE | 2020-04-23 10:17 | NUR ---
pt on TP FiO2 35% O2sat 87-88%, RR 30. Spoke with Dr. Gil, new orders received to restart pt on vent with same settings and stat cxry. RT Jil at bedside. Will continue to monitor.
--- NOTE | 2020-04-23 10:20 | NUR ---
RT NOTE: PATIENT PLACED BACK ON VENT WITH SETTINGS: AC 16,HS=117,FI02=40%, +[address]CONSTANTINO DUE TO DISTRESS AND LOW SP02. PATIENT IS TOLERATING WELL. ALARMS SET AND AUDIBLE. AMBU BAG AT [facility]. CHARGE NURSE(BEATRIZ) AWARE.
[2020-04-23 12:00] VITALS: BP 111/52
[2020-04-23] MEDS: INSULIN REGULAR, HUMAN 100 UNIT/ML 3 ML VIAL SQ PRN (13:05)
[2020-04-23] MEDS ORDERED: ACETYLCYSTEINE 10% SOLN 400 MG/4 ML VIAL NEB SCH (15:30)
[2020-04-23] MEDS: LEVOFLOXACIN (250MG) 250 MG TABLET PO SCH (15:55)
[2020-04-23 16:00] VITALS: BP 120/62
--- NOTE | 2020-04-23 18:43 | NUR ---
RN Closing note Patient in bed resting, does no appears pain or discomfort. Respiratory even and unlabored with ventilator and O2sat 100%. Skin is warm to touch keep clean/dry, wound picture taken and dressing changed. Patient discharge to SNF, ambulance suppose to apple picker patient at 1830. Kept locked bed with elevated HOB for ensure airway and aspiration precaution and lowest bed for safety.
--- NOTE | 2020-04-23 19:08 | NUR ---
MUCOMYST TREATMENT MISSED BY AM RT. Addendum: 04/23/20 at 1909 by RILEY WILKINS RT Amended: Links added.
--- NOTE | 2020-04-23 20:10 | NUR ---
SWITCH OPERATOR NOTES PATIENT DISCHARGED WITH [facility]. DISCHARGE PAPERWORK GIVEN TO [facility]SP[facility]TER[facility]. PICC LINE AND MEDICAL BAND REMOVED BY AM NURSE. PATIENT MEDICALLY STABLE.
== END 2020-04-23 20:05 | DRG 853 ==
LOC: ER 09:21 → ICU 13:09 → TELE1 03-26 17:55 → ICU 03-29 02:14 → TELE 03-31 19:12 → ICU 03-31 19:30 → TELE 03-31 20:30 → ICU 04-13 16:09 → TELE 04-17 16:43
PROVIDERS: ADMIT Internal Medicine; ATTEND Nurse Practitioner Acute Care
PROC: 5A1955Z Respiratory Ventilation, Greater than 96 Consecutive Hours (ICD-10-PCS; principal; 2020-03-21)
PROC: 02HV33Z Insertion of Infusion Device into Superior Vena Cava, Percutaneous Approach (ICD-10-PCS; 2020-03-22)
PROC: B548ZZA Ultrasonography of Superior Vena Cava, Guidance (ICD-10-PCS; 2020-03-22)
PROC: 4A023N8 Measurement of Cardiac Sampling and Pressure, Bilateral, Percutaneous Approach (ICD-10-PCS; 2020-03-24)
PROC: B211YZZ Fluoroscopy of Multiple Coronary Arteries using Other Contrast (ICD-10-PCS; 2020-03-24)
PROC: B215YZZ Fluoroscopy of Left Heart using Other Contrast (ICD-10-PCS; 2020-03-24)
PROC: B41FYZZ Fluoroscopy of Right Lower Extremity Arteries using Other Contrast (ICD-10-PCS; 2020-03-24)
PROC: 30233N1 Transfusion of Nonautologous Red Blood Cells into Peripheral Vein, Percutaneous Approach (ICD-10-PCS; 2020-03-26)
PROC: 0KBP0ZZ Excision of Left Hip Muscle, Open Approach (ICD-10-PCS; 2020-03-27)
PROC: 0KBN0ZZ Excision of Right Hip Muscle, Open Approach (ICD-10-PCS; 2020-03-27)
PROC: 0QB10ZZ Excision of Sacrum, Open Approach (ICD-10-PCS; 2020-04-05)
PROC: 0QB10ZZ Excision of Sacrum, Open Approach (ICD-10-PCS; 2020-04-12)
PROC: 027034Z Dilation of Coronary Artery, One Artery with Drug-eluting Intraluminal Device, Percutaneous Approach (ICD-10-PCS; 2020-04-13)
PROC: 4A023N7 Measurement of Cardiac Sampling and Pressure, Left Heart, Percutaneous Approach (ICD-10-PCS; 2020-04-13)
PROC: B211YZZ Fluoroscopy of Multiple Coronary Arteries using Other Contrast (ICD-10-PCS; 2020-04-13)
PROC: B41GYZZ Fluoroscopy of Left Lower Extremity Arteries using Other Contrast (ICD-10-PCS; 2020-04-13)
PROC: B41FYZZ Fluoroscopy of Right Lower Extremity Arteries using Other Contrast (ICD-10-PCS; 2020-04-13)
PROC: 0W993ZZ Drainage of Right Pleural Cavity, Percutaneous Approach (ICD-10-PCS; 2020-04-20)
DX: A41.9 Sepsis, unspecified organism (principal); G93.41 Metabolic encephalopathy; J96.21 Acute and chronic respiratory failure with hypoxia; I50.33 Acute on chronic diastolic (congestive) heart failure; N17.0 Acute kidney failure with tubular necrosis; R53.2 Functional quadriplegia; J18.9 Pneumonia, unspecified organism; I21.A1 Myocardial infarction type 2; D68.59 Other primary thrombophilia; G93.1 Anoxic brain damage, not elsewhere classified; I13.0 Hypertensive heart and chronic kidney disease with heart failure and stage 1 through stage 4 chronic kidney disease, or unspecified chronic kidney disease; E87.1 Hypo-osmolality and hyponatremia; E87.0 Hyperosmolality and hypernatremia; E87.3 Alkalosis; J44.0 Chronic obstructive pulmonary disease with (acute) lower respiratory infection; N39.0 Urinary tract infection, site not specified; Z16.24 Resistance to multiple antibiotics; E11.22 Type 2 diabetes mellitus with diabetic chronic kidney disease; Z93.1 Gastrostomy status; B96.89 Other specified bacterial agents as the cause of diseases classified elsewhere; D64.9 Anemia, unspecified; D75.1 Secondary polycythemia; E11.65 Type 2 diabetes mellitus with hyperglycemia; E86.1 Hypovolemia; I08.1 Rheumatic disorders of both mitral and tricuspid valves; I25.10 Atherosclerotic heart disease of native coronary artery without angina pectoris; I25.2 Old myocardial infarction; I25.5 Ischemic cardiomyopathy; I25.82 Chronic total occlusion of coronary artery; I27.20 Pulmonary hypertension, unspecified; K57.90 Diverticulosis of intestine, part unspecified, without perforation or abscess without bleeding; L89.150 Pressure ulcer of sacral region, unstageable; M89.9 Disorder of bone, unspecified; N18.2 Chronic kidney disease, stage 2 (mild); R13.10 Dysphagia, unspecified; R56.9 Unspecified convulsions; Z20.828 Contact with and (suspected) exposure to other viral communicable diseases; Z66 Do not resuscitate; Z79.4 Long term (current) use of insulin; Z79.82 Long term (current) use of aspirin; Z79.899 Other long term (current) drug therapy; Z86.74 Personal history of sudden cardiac arrest; Z93.0 Tracheostomy status; S70.322A Blister (nonthermal), left thigh, initial encounter; S70.321A Blister (nonthermal), right thigh, initial encounter; X58.XXXA Exposure to other specified factors, initial encounter; Y93.9 Activity, unspecified; Y92.099 Unspecified place in other non-institutional residence as the place of occurrence of the external cause; B95.2 Enterococcus as the cause of diseases classified elsewhere; B96.5 Pseudomonas (aeruginosa) (mallei) (pseudomallei) as the cause of diseases classified elsewhere; I27.21 Secondary pulmonary arterial hypertension
CPT/HCPCS: 31720; 36415; 36569; 36600; 70450-TC; 71045-TC; 72192-TC; 76770-TC; 80048-TC; 80053-TC; 80061-TC; 80202-TC; 81001; 82550-TC; 82728-TC; 82803-TC; 82962-TC; 83540-TC; 83605-TC; 83615-TC; 83735-TC; 83880; 84100-TC; 84484-TC; 85025-TC; 85378-TC; 85385-TC; 85610-TC; 85730-TC; 86140-TC; 86850-TC; 87040-TC; 87070-TC; 87081-TC; 87086-TC; 87186-TC; 88108-TC; 88305-TC; 88312-TC; 92980; 92981; 93307-TC; 93880-TC; 94002; 94002-TC; 94003-TC; 94640-TC; 94760-TC; 94762-TC; 94799-TC; 95819-TC; 97110-TC; 97112-TC; 97530-TC; 99082-TC; A4216; A4217; A6253; A6403; A7526; C1751; C1769; C1887; C1894; G0378; G0500; J1644; J1650; J1815; J1940; J1953; J1956; J2060; J2250; J2543; J3010; J3370; J3475; J3480; J3490; J7030; J7040; J7050; J7060; P9016-BL; Q9967; U0003